=== PATIENT | male | born 1935 | race Caucasian/White ===

== ENCOUNTER 2016-06-27 16:47 | Inpatient (IN) | payer MEDICARE, OTHER ==
[~2016-06-27] VITALS: Ht 182.9 cm; Wt 60.0 kg
[~2016-06-27 16:47] MED LIST: DULO60CA6 PO; EZET10TA3 PO; IPRA12.93 INHALATION; LYRI100 PO; RANI150T9 PO
[2016-06-27] MEDS ORDERED: ONDANSETRON 4 MG INJ IV STA (17:19)
[2016-06-27] MEDS ORDERED: SOD CHLORIDE 0.9% 1,000 ML IV STA (17:19)
--- NOTE | 2016-06-27 17:22 | ERA ---
ER Documentation Chief Complaint Date/Time DATE: 06/27/16 TIME: 17:20 Chief Complaint NAUSEA SINCE YESTERDAY AND VOMITING TODAY, DARK COLORED. NO BLOOD,. HPI 80-year-old male with a history of coronary artery disease status post STEMI 2015 with PCI and stents to the right coronary, LAD and diagonal branch, peripheral neuropathy, Crohn's disease, hiatal hernia, recurrent aspiration, chronic back pain with most recent admission 09/15/2015 for C. difficile colitis and sepsis secondary to MRSA bacteremia presents to the ED via ambulance for evaluation of nausea and vomiting. Patient states that last night symptoms began with nausea and occasional vomiting which has been almost continuous for the last several hours and now is dark in appearance but there is no gross blood. Denies diarrhea or constipation. No hematochezia or melanotic stools. Denies abdominal pain or back pain. No chest pain or palpitations. Denies shortness of breath or cough. Denies ill contacts, spelled food exposure or recent travel. No fevers or chills. ROS All systems reviewed and are negative except as per history of present illness. Medications Home Meds Reported Medications Duloxetine Hcl* (Duloxetine Hcl*) 60 Mg Capsule.dr, 60 MG PO DAILY, #30 CAP 06/27/16 Melatonin (Melatonin) 5 Mg Tablet, 5 MG PO HS, TAB 06/27/16 Triamcinolone Acetonide (Triamcinolone Acetonide) 0.1% - 15 Gm Cream.gm., 1 APPLIC TOP DAILY, #1 TUB 06/27/16 Docusate Sodium* (Docusate Sodium*) 100 Mg Capsule, 100 MG PO Q12H, #60 CAP 06/27/16 Clopidogrel Bisulfate (Clopidogrel) 75 Mg Tablet, 75 MG PO DAILY, #30 TAB 06/27/16 Omeprazole* (Omeprazole*) 20 Mg Capsule.dr, 20 MG PO DAILY, #30 CAP 06/27/16 Zolpidem Tartrate* (Zolpidem Tartrate* ER) 12.5 Mg Tab.mphase, 12.5 MG PO HS Y for INSOMNIA, #30 TAB.SA 06/27/16 Trazodone Hcl* (Trazodone Hcl*) 50 Mg Tablet, 50 MG PO QHS, #30 TAB 06/27/16 Pregabalin* (Lyrica*) 50 Mg Capsule, 50 MG PO BID, CAP 06/27/16 Ezetimibe* (Zetia*) 10 Mg Tablet, 10 MG PO HS, TAB 09/03/15 Discontinued Reported Medications Ipratropium [place]* (Atrovent HFA*) 12.9 Gm Aer.w.adap, 2 PUFF INHALATION QID Y for WHEEZING AND SOB, #1 INHALER 09/03/15 Ranitidine Hcl* (Zantac*) 150 Mg Tablet, 150 MG PO HS, #30 TAB 09/03/15 Duloxetine Hcl* (Cymbalta*) 60 Mg Capsule.dr, 60 MG PO DAILY, CAP 07/11/15 Pregabalin* (Lyrica*) 100 Mg Capsule, 100 MG PO BID, CAP 07/11/15 Allergies Allergies: Coded Allergies: Penicillins (Verified Allergy, Unknown, 06/27/16) rash PMhx/Soc Reviewed in chart. As per HPI. History of Surgery: Yes (June 2015 W/ STENT X 3) Anesthesia Reaction: No Hx Neurological Disorder: No Hx Respiratory Disorders: Yes (asthma ) Hx Cardiac Disorders: No Hx Psychiatric Problems: No Hx Miscellaneous Medical Probl: Yes (June 2015 W/ STENT X 3, HIATAL HERNIA, ASPIRATION, LBP, PERIPH NEUROPATHY) Hx Alcohol Use: Yes (wine) Hx Substance Use: No Hx Tobacco Use: No Smoking Status: Unknown if ever smoked FmHx Reviewed in chart. Otherwise unknown. Not relevant to presenting complaint. Physical Exam Vitals Vital Signs Date Time Temp Pulse Resp B/P Pulse Ox O2 Delivery O2 Flow Rate FiO2 06/27/16 21:15 83 22 143/76 100 06/27/16 16:53 98.8 110 21 126/73 9 Physical Exam Const: Alert, chronically ill-appearing in moderate distress. Head: Atraumatic Eyes: Normal Conjunctiva. Pupils and reactive to light. Exotropia left eye ENT: Normal External Ears, Nose and Mouth. Neck: Full range of motion. Nontender. No JVD. Carotids 2+ bilaterally without bruits. Resp: Breath sounds diminished at the bases but otherwise clear to auscultation bilaterally. No rales rhonchi or wheezes. Cardio: Regular rate and rhythm, no murmurs Abd: Soft, mild, generalized tenderness. No rebound or guarding. Non distended. Normal bowel sounds Skin: No petechiae or rashes Back: No midline or flank tenderness Ext: No cyanosis, or edema Neur: Awake and alert. No focal deficit observed. Psych: Normal Mood and Affect Result Diagram: 06/28/16 0545 06/28/16 0545 Results 24 hrs Laboratory Tests Test 06/27/16 17:20 06/27/16 19:00 06/27/16 19:30 06/27/16 21:30 White Blood Count 11.310^3/ul Red Blood Count 4.7210^6/ul Hemoglobin 15.1g/dl Hematocrit 44.6% Mean Corpuscular Volume 94.5fl Mean Corpuscular Hemoglobin 32.0pg Mean Corpuscular Hemoglobin Concent 33.9g/dl Red Cell Distribution Width 14.2% Platelet Count 36942^3/UL Mean Platelet Volume 10.1fl Neutrophils % 84.2% Lymphocytes % 10.3% Monocytes % 4.6% Eosinophils % 0.3% Basophils % 0.2% Nucleated Red Blood Cells % 0.0/100WBC Neutrophils # 9.510^3/ul Lymphocytes # 1.210^3/ul Monocytes # 0.510^3/ul Eosinophils # 0.010^3/ul Basophils # 0.010^3/ul Nucleated Red Blood Cells # 0.010^3/ul Prothrombin Time 13.1Sec Prothrombin Time Ratio 1.0 INR International Normalized Ratio 0.99 Activated Partial Thromboplast Time 27.2Sec Sodium Level 143mmol/L Potassium Level 3.7mmol/L Chloride Level 99mmol/L Carbon Dioxide Level 29mmol/L Anion Gap 19 Blood Urea Nitrogen 40mg/dl Creatinine 0.91mg/dl Glucose Level 187mg/dl Lactic Acid Level 2.5mmol/L 1.8mmol/L 1.1mmol/L Calcium Level 9.2mg/dl Total Bilirubin 0.5mg/dl Direct Bilirubin 0.00mg/dl Indirect Bilirubin 0.5mg/dl Aspartate Amino Transf (AST/SGOT) 34IU/L Alanine Aminotransferase (ALT/SGPT) 38IU/L Alkaline Phosphatase 124IU/L Troponin I < 0.012ng/ml Total Protein 7.9g/dl Albumin 4.1g/dl Globulin 3.80g/dl Albumin/Globulin Ratio 1.07 Lipase 15U/L Urine Color LT. YELLOW Urine Clarity CLEAR Urine pH 6.0 Urine Specific [place] 1.015 Urine Ketones NEGATIVE Urine Nitrite NEGATIVE Urine Bilirubin NEGATIVE Urine Urobilinogen 0.2 E.U./dL Urine Leukocyte Esterase NEGATIVE Urine Microscopic RBC 2-5/HPF Urine Microscopic WBC 0-2/HPF Urine Hemoglobin TRACE Urine Glucose NEGATIVE% Urine Total Protein NEGATIVE Current Medications Medications (Trade) Dose Ordered Sig/Renita Route PRN Reason Start Time Stop Time Status Last Admin Dose Admin Sodium Chloride (NS) 1,000 ml @ 1,000 mls/hr Q1H STAT IV 06/27/16 17:19 06/27/16 18:18 DC 06/27/16 17:29 Ondansetron HCl (Zofran Inj) 4 mg ONCE STAT IV 06/27/16 17:19 06/27/16 17:20 DC 06/27/16 17:29 Pantoprazole (Protonix Iv) 40 mg ONCE ONCE IV 06/27/16 17:30 06/27/16 17:31 DC 06/27/16 17:29 IV Flush 10 ml 10 ml STK-MED ONCE .ROUTE 06/27/16 18:31 06/27/16 18:32 DC 06/27/16 18:47 Sodium Chloride (NS) 100 ml @ ud STK-MED ONCE .ROUTE 06/27/16 18:31 06/27/16 18:32 DC 06/27/16 18:47 Iohexol 150 ml 150 ml STK-MED ONCE .ROUTE 06/27/16 18:31 06/27/16 18:32 DC 06/27/16 18:47 Sodium Chloride (NS) 1,000 ml @ 70 mls/hr [id number] IV 06/27/16 22:06 06/29/16 04:17 EKG: TIME: 17: 27. Sinus tachycardia. Rate 104. First-degree AV block with CA interval 244 ms. Q waves in leads III and aVF. No acute ST segment elevation or depression. Interpretation is somewhat limited due to baseline artifact EP Interpretation: Abnormal EKG. IMAGING: PROCEDURE: XR Chest 1 View. CLINICAL INDICATION: Abnormal breath sounds, abdominal pain TECHNIQUE: AP view of the chest was obtained. COMPARISON: September 10, 2015 FINDINGS: The heart size is within normal limits. Calcified atherosclerosis is noted in the aorta. The lungs are hypoinflated. Diffuse interstitial prominence in both lungs appears chronic. Scattered atelectasis is noted in the bilateral lower lobes. Blunting of the right costophrenic angle is seen. The osseous structures are osteopenic, but appear grossly intact. Old, healed posterior right 8th rib fracture is noted. IMPRESSION: Calcified atherosclerosis in the aorta. Hypoinflated lungs with scattered atelectasis in the bilateral lower lobes. Stable, chronic mild interstitial prominence in both lungs. Blunting of the right costophrenic angle that could reflect scarring or small pleural effusion. RPTAT: AA .Jluis Ybarra MD, Date Time Electronically viewed and signed by .Jluis Ybarra MD, MD on 06/27/2016 18:14 .P/ PROCEDURE: CT abdomen and pelvis without contrast. CLINICAL INDICATION: Abdominal pain. TECHNIQUE: CT scan of the abdomen and pelvis without contrast was performed on a multi-slice CT scanner utilizing axial imaging from the lung bases through the pubis symphysis. The patient was scanned without intravenous contrast. Sagittal and coronal reformatted images were made. The CTDIvol is 5.87 mGy and the DLP is 334.31 mGycm. One of the following 3 dose reduction techniques were used during this CT examination: automated exposure control; adjustment of the mA and /or kV according to patient size; or use of iterative reconstruciton technique. COMPARISON: Chest x-ray 06/27/[address] abdomen pelvis 09/03/2015 FINDINGS: The lung bases are remarkable for bibasilar subsegmental discoid atelectasis. Mild cardiomegaly is present without pericardial or pleural effusions. Vascular calcifications are present of the coronary arteries and the thoracic aorta. Mild hiatal hernia is present. The visualized liver is of normal size and attenuation. Too small to characterize low attenuation 3 mm cysts are present or cystic lesions in the right and left lobes of the liver. The visualized spleen, fatty pancreas, and gallbladder are normal. The bilateral adrenal glands are normal. The bilateral kidneys demonstrate bilateral renal cortical cysts without evidence for hydroureteronephrosis or nephroureterolithiasis. A 7 mm peripheral calcified cyst is noted along the right lateral mid pole of the kidney. The visualized aorta demonstrates vascular calcifications without aneurysmal dilatation. The visualized bowel demonstrates an abundance of stool and correlate with constipation. No evidence for bowel obstruction, diverticulosis, or diverticulitis is noted. In the appendix is not visualized although no evidence for acute appendicitis is present. No pelvic mass, lymphadenopathy, or free fluid is seen. Mild prostatic enlargement is noted. Bilateral fatty inguinal hernias are noted the right measures 3.2 cm in transverse dimensions and the left measures 1.8 cm. There is no evidence of free air. The surrounding osseous structures are remarkable for the appearance of a sclerotic lesion measuring 1.7 cm in the left inferior pubic ramus. Severe degenerative changes are present of the right femoral acetabular joint and mild degenerative changes of the left. Ankylosis is present of the anterior portion of the of the sacroiliac joints with osteophytic bridging. Degenerative spondylosis is present of the imaged spine. Healed left posterior lateral rib fractures. IMPRESSION: 1. Abundance of stool and correlate with constipation. 2. Mild cardiomegaly and atherosclerotic vascular disease 3. Small hiatal hernia unchanged from prior para 4. Bilateral renal cortical cysts and 7 mm peripheral calcified cyst along the right lateral mid pole of the kidney. 5. Mild prostatic enlargement and decrease in the previously described rectal wall thickening and inflammatory changes. 6. Bilateral fatty inguinal hernias 7. Sclerotic left inferior pubic ramus 1.7 cm lesion and healed left rib fractures stable from prior study. RPTAT: HDC .Renetta Bell MD, MD Date Time Electronically viewed and signed by .Renetta Bell MD, on 06/27/2016 19: 47 .C/ Procedures/MDM DOCUMENTS REVIEWED: ED nurse, prior ED, prior records including a August 2015 admission for similar symptoms, history and physical, progress notes and discharge summary. ED COURSE: Time: 21: 00 IV saline lock. Normal saline 1 L. Zofran 4 mg, Protonix 40 mg IV. REEXAMINATION/REEVALUATION: Time: 21:00. Doing well. Vital signs stable. Afebrile. Abdomen is soft nontender. No further vomiting. Patient resents with nausea and vomiting likely secondary to gastritis/GERD. Criteria for systemic inflammatory response syndrome include tachycardia and tachypnea. Has no evidence of infection or sepsis. No urinary tract infection or pneumonia. Lactic acidosis likely secondary to dehydration. Initial lactate was mildly elevated 2.5 likely secondary to dehydration and decreased to 1.[address] scan reveals diffuse constipation, a small hiatal hernia and bilateral inguinal hernias without evidence of obstruction. No signs of an acute intra-abdominal process occluded by limited to mesenteric ischemia, appendicitis, diverticulitis or obstructive uropathy. Abdominal exam is benign without significant tenderness, rebound, guarding or signs of peritonitis. Patient responded to intravenous hydration, antiemetics and proton pump inhibitors. History of coronary artery disease status post PCI but no chest pain, ischemic EKG changes, elevated troponin or other signs of acute coronary syndrome. He will be admitted to med/surg for further evaluation and management. MEDICAL DECISION MAKIN-year-old male with a history of coronary artery disease status post STEMI 06/2015 with PCI and stents to the right coronary, LAD and diagonal branch, peripheral neuropathy, Crohn's disease, hiatal hernia, recurrent aspiration, chronic back pain with most recent admission 09/15/2015 for C. difficile colitis and sepsis secondary to MRSA bacteremia presents to the ED via ambulance for evaluation of nausea and vomiting. Counseled patient regarding diagnosis, diagnostic results and plan for admission. CALLS/CONSULTS: Time[]Dr. [], Recommends []. PATIENT CARE TRANSITIONED: Time: []Dr. []. Departure Diagnosis: Primary Impression: Acute vomiting Additional Impressions: Acute gastritis Qualified Code: K29.00 - Acute gastritis, presence of bleeding unspecified, unspecified gastritis type Constipation Qualified Code: K59.00 - Constipation, unspecified constipation type History of coronary artery disease History of heart artery stent Systemic inflammatory response syndrome Hiatal hernia Bilateral inguinal hernia Qualified Code: K40.21 - Bilateral recurrent inguinal hernia without obstruction or gangrene Condition: Serious GRACIELA BRADLEY MD June 27, 2016 17:22
[2016-06-27 17:30] LABS: ADD SCAN DIFF NO
[2016-06-27] MEDS ORDERED: PANTOPRAZOLE 40 MG INJ IV ONE (17:30)
[2016-06-27 17:47] LABS: INR 0.99; PROTIME 13.1 Sec (12.2-14.2)
[2016-06-27 17:48] LABS: ALBUMIN 4.1 g/dl (3.3-4.9); CHLORIDE 99 mmol/L (97-110); PARTIAL THROMBOPLASTIN TIME 27.2 Sec (25.0-35.0); POTASSIUM 3.7 mmol/L (3.5-5.1); SODIUM 143 mmol/L (135-144)
[2016-06-27 17:50] LABS: CREATININE 0.91 mg/dl (0.61-1.24)
[2016-06-27 17:51] LABS: ALANINE AMINOTRANSFERASE 38 IU/L (13-69); ALBUMIN/GLOBULIN RATIO 1.07; ALKALINE PHOSPHATASE 124 IU/L (42-121); ANION GAP 19 (8-16); ASPARTATE AMINO TRANSFERASE 34 IU/L (15-46); BILIRUBIN,INDIRECT 0.5 mg/dl (0-1.1); BILIRUBIN,TOTAL 0.5 mg/dl (0.2-1.3); BLOOD UREA NITROGEN 40 mg/dl (7-20); CALCIUM 9.2 mg/dl (8.4-10.2); CARBON DIOXIDE 29 mmol/L (21-31); GLUCOSE 187 mg/dl (70-220); TOTAL PROTEIN 7.9 g/dl (6.1-8.1)
[2016-06-27 18:04] LABS: TROPONIN-I < 0.012 ng/ml (0.00-0.12)
[2016-06-27] MEDS ORDERED: PREG50CA PO (18:13)
--- NOTE | 2016-06-27 18:14 | RADRPT ---
PROCEDURE: XR Chest 1 View. CLINICAL INDICATION: Abnormal breath sounds, abdominal pain TECHNIQUE: AP view of the chest was obtained. COMPARISON: September 10, 2015 FINDINGS: The heart size is within normal limits. Calcified atherosclerosis is noted in the aorta. The lungs are hypoinflated. Diffuse interstitial prominence in both lungs appears chronic. Scattered atelect asis is noted in the bilateral lower lobes. Blunting of the right costophrenic angle is seen. The o sseous structures are osteopenic, but appear grossly intact. Old, healed posterior right 8th rib fra cture is noted. IMPRESSION: Calcified atherosclerosis in the aorta. Hypoinflated lungs with scattered atelectasis in the bilateral lower lobes. Stable, chronic mild interstitial prominence in both lungs. Blunting of the right costophrenic angle that could reflect scarring or small pleural effusion. RPTAT: AA .Jluis Ybarra MD, Date Time Electronically viewed and signed by .Jluis Ybarra MD, on 06/27/2016 18:14 .P/
[2016-06-27 18:29] LABS: BASOPHILS % 0.2 % (0.0-2.0); EOSINOPHILS % 0.3 % (0.0-7.0); HEMATOCRIT 44.6 % (42.0-52.0); HEMOGLOBIN 15.1 g/dl (14.0-18.0); LYMPHOCYTES # 1.2 10^3/ul (0.8-2.9); LYMPHOCYTES % 10.3 % (15.0-51.0); MEAN CORPUSCULAR HGB CONC 33.9 g/dl (32.0-37.0); MEAN CORPUSCULAR VOLUME 94.5 fl (82.0-101.0); MEAN PLATELET VOLUME 10.1 fl (7.4-10.4); MONOCYTE # 0.5 10^3/ul (0.3-0.9); MONOCYTES % 4.6 % (0.0-11.0); NEUTROPHIL # 9.5 10^3/ul (1.6-7.5); NEUTROPHILS % 84.2 % (39.0-77.0); PLATELET COUNT 216 10^3/UL (140-415); RED BLOOD COUNT 4.72 10^6/ul (4.70-6.10); RED CELL DISTRIBUTION WIDTH 14.2 % (11.5-14.5); WHITE BLOOD COUNT 11.3 10^3/ul (4.8-10.8)
[2016-06-27] MEDS ORDERED: SOD CHLORIDE 0.9% 100 ML ONE (18:31)
[2016-06-27] MEDS ORDERED: IOHEXOL 300MG/ML 150 ML BTL ONE (18:31)
[2016-06-27] MEDS ORDERED: TRAZ50TA18 PO (18:40)
[2016-06-27] MEDS ORDERED: ZOLP12.54 PO (18:47)
[2016-06-27] MEDS ORDERED: CLOP75TA27 PO (18:48)
[2016-06-27] MEDS ORDERED: OMEP20CA16 PO (18:48)
[2016-06-27] MEDS ORDERED: DOCU-159 PO (18:49)
[2016-06-27] MEDS ORDERED: KENC1 TOP (18:50)
[2016-06-27] MEDS ORDERED: MELA5TAB4 PO (18:51)
[2016-06-27] MEDS ORDERED: DULO60CA59 PO (18:52)
[2016-06-27 19:39] LABS: ADD UMIC YES; URINE BILIRUBIN (Dip) NEGATIVE (NEGATIVE); URINE BLOOD (Dip) TRACE (NEGATIVE); URINE COLOR LT. YELLOW (YELLOW); URINE GLUCOSE (Dip) NEGATIVE (NEGATIVE); URINE KETONES (Dip) NEGATIVE (NEGATIVE); URINE LEUKOCYTE ESTERASE (Dip) NEGATIVE (NEGATIVE); URINE NITRITE (Dip) NEGATIVE (NEGATIVE); URINE TOTAL PROTEIN (Dip) NEGATIVE (NEGATIVE); URINE UROBILINOGEN (Dip) 0.2 E.U./dL (0.1-1.0)
--- NOTE | 2016-06-27 19:47 | RADRPT ---
PROCEDURE: CT abdomen and pelvis without contrast. CLINICAL INDICATION: Abdominal pain. TECHNIQUE: CT scan of the abdomen and pelvis without contrast was performed on a multi-slice CT [facility] utilizing axial imaging from the lung bases through the pubis symphysis. The patient was scan yolanda without intravenous contrast. Sagittal and coronal reformatted images were made. The CTDIvol i s 5.87 mGy and the DLP is 334.31 mGycm. One of the following 3 dose reduction techniques were used during this CT examination: automated exp osure control; adjustment of the mA and /or kV according to patient size; or use of iterative recons truciton technique. COMPARISON: Chest x-ray 06/27/[address] abdomen pelvis 09/03/2015 FINDINGS: The lung bases are remarkable for bibasilar subsegmental discoid atelectasis. Mild cardiomegaly is present without pericardial or pleural effusions. Vascular calcifications are present of the hammond ry arteries and the thoracic aorta. Mild hiatal hernia is present. The visualized liver is of normal size and attenuation. Too small to characterize low attenuation 3 mm cysts are present or cystic lesions in the right and left lobes of the liver. The visualized sp jesse, fatty pancreas, and gallbladder are normal. The bilateral adrenal glands are normal. The paola ateral kidneys demonstrate bilateral renal cortical cysts without evidence for hydroureteronephrosis or nephroureterolithiasis. A 7 mm peripheral calcified cyst is noted along the right lateral mid p ole of the kidney. The visualized aorta demonstrates vascular calcifications without aneurysmal dila tation. The visualized bowel demonstrates an abundance of stool and correlate with constipation. No evidenc e for bowel obstruction, diverticulosis, or diverticulitis is noted. In the appendix is not visuali zed although no evidence for acute appendicitis is present. No pelvic mass, lymphadenopathy, or free fluid is seen. Mild prostatic enlargement is noted. Bilat eral fatty inguinal hernias are noted the right measures 3.2 cm in transverse dimensions and the lef t measures 1.8 cm. There is no evidence of free air. The surrounding osseous structures are remarkable for the appearance of a sclerotic lesion measuring 1.7 cm in the left inferior pubic ramus. Severe degenerative changes are present of the right femo ral acetabular joint and mild degenerative changes of the left. Ankylosis is present of the anterio r portion of the of the sacroiliac joints with osteophytic bridging. Degenerative spondylosis is pr esent of the imaged spine. Healed left posterior lateral rib fractures. IMPRESSION: 1. Abundance of stool and correlate with constipation. 2. Mild cardiomegaly and atherosclerotic vascular disease 3. Small hiatal hernia unchanged from prior para 4. Bilateral renal cortical cysts and 7 mm peripheral calcified cyst along the right lateral mid po le of the kidney. 5. Mild prostatic enlargement and decrease in the previously described rectal wall thickening and i nflammatory changes. 6. Bilateral fatty inguinal hernias 7. Sclerotic left inferior pubic ramus 1.7 cm lesion and healed left rib fractures stable from prio r study. RPTAT: HDC .Renetta Bell MD, MD Date Time Electronically viewed and signed by .Renetta Bell MD, on 06/27/2016 19:47 .C/
[2016-06-27] MEDS ORDERED: ONDANSETRON 4 MG INJ IV PRN (22:30)
[2016-06-27] MEDS ORDERED: PANTOPRAZOLE 40 MG INJ IV SCH (22:30)
[2016-06-27] MEDS ORDERED: NACL 0.9% 3 ML SYG IV SCH (22:30)
[2016-06-27] MEDS: SOD CHLORIDE 0.9% 1,000 ML IV SCH (22:34)
[2016-06-27 23:30] VITALS: TEMP 98.8
[2016-06-28 00:43] VITALS: BP 129/73; RESP 18
[2016-06-28 01:36] VITALS: Ht 182.9 cm; Wt 60.0 kg
--- NOTE | 2016-06-28 04:12 | HP ---
Date/Time of Note Date/Time of Note DATE: 06/28/16 TIME: 03:55 Assessment/Plan VTE Prophylaxis VTE Prophylaxis Intervention: SCD's Lines/Catheters IV Catheter Type (from [facility]): Peripheral IV Assessment/Plan Chief Complaint/Hosp Course This is a 80-year-old male being admitted to the [facility] floor for: #1 Dehydration: Likely secondary to vomiting. Initially patient had a lactic acid of 2.5 which subsequently improved to 1.1 with IV fluid hydration. will continue IV fluid hydration. #2 Emesis: Patient reports a dark brown vomitus which is heparin for. He does state that times he takes Tums for reflux. We will have GI evaluate the patient for possible EGD. At the current time will keep patient n.p.o. and hold current oral medications especially Plavix. This could be related to patient's hiatal hernia which is seen on CAT scan. There was no other acute finding on the CAT scan that would at this time appear to be contributing to this. Once patient can resume p.o. meds will establish bowel regimen his CT did show constipation. #3 peripheral neuropathy: We will resume Lyrica once patient is able to take p.o. #4 CAD: We will resume Plavix and Zetia once GI bleed is ruled out and patient is able to take oral meds #5 GERD: Continue acid amanda #6 DVT and GI prophylaxis: SCDs, Protonix IV twice daily Patient's CODE STATUS is a DNR. However patient would like to see GI and discuss whether patient would need possibly endoscopy/colonoscopy or not. Problems: HPI/ROS Admit Date/Time Admit Date/Time June 27, 2016 at 22:10 Hx of Present Illness 80-year-old male with a history of coronary artery disease status post STEMI 2015 with PCI and stents to the right coronary, LAD and diagonal branch, peripheral neuropathy, Crohn's disease, hiatal hernia, recurrent aspiration, chronic back pain with most recent admission 09/15/2015 for C. difficile colitis and sepsis secondary to MRSA bacteremia presents to the ED via ambulance for evaluation of nausea and vomiting. Patient states that last night symptoms began with nausea and occasional vomiting which has been almost continuous for the last several hours and now is dark in appearance but there is no gross blood. Denies diarrhea or constipation. No hematochezia or melanotic stools. Denies abdominal pain or back pain. No chest pain or palpitations. Denies shortness of breath or cough. Denies ill contacts, spelled food exposure or recent travel. No fevers or chills. Allergies: Penicillin Medications: See MAR ROS Const: 3 pound weight loss over the past month unintentional Eyes : No pain discharge or redness or change in visual acuity ENT: No pain, sore throat, congestion, congestion, dysphagia or discharge Respiratory: No shortness of breath, cough, sputum, wheezing, or pleuritic pain Cardiovascular: No chest pain, palpitation, PND, or edema GI : Negative except for what is mentioned in the HPI Genitourinary: No dysuria, hematuria, flank pain , discharge or CVA tenderness Musculoskeletal: No joint pain, back pain, neck pain, restricted range of motion in neck or joints Skin: No rash, bruising or hives Neuro: Chronic weakness secondary to peripheral neuropathy Endocrine: No polyuria, polydipsia, temperature intolerance Psych: No hallucination, depression, anxiety or suicidal ideation PMH/Family/Social Past Medical History [facility] 06/2015 with stents, peripheral neuropathy, Crohn's disease, hiatal hernia , recurrent aspiration, chronic back pain, history of C. difficile infection and MRSA bacteremia Past Surgical History Abdominal surgery, patient is unclear as to what exactly he had done Family History Significant Family History: no pertinent family hx Social History Alcohol Use: none Smoking Status: Former smoker Drug Use: none Exam/Review of Systems Vital Signs Vitals Vital Signs Date Time Temp Pulse Resp B/P Pulse Ox O2 Delivery O2 Flow Rate FiO2 06/28/16 00:43 97.7 73 18 129/73 95 06/27/16 23:30 Room Air 2.0 Nasal Cannula Exam Exam General: This is a pleasant frail gentleman The patient is alert oriented -3 lying comfortably in bed. HEENT: Atraumatic, normocephalic. The pupils are equal, round and reactive. Extraocular motor are intact, left eye congenital abnormality Neck: Supple with full range of motion. No rigidity or meningismus Chest: Nontender Lungs: Clear to auscultation bilaterally no crackles rales or wheezing Heart: Normal S1-S2, Regular rhythm and rate Abdomen: Soft , nontender, nondistended , bowel sounds are present. No guarding no rebound tenderness , No masses or organomegaly. No costovertebral temporal angle mass Extremities: Normal to inspection, no edema no cyanosis Neurologic: Normal mental status, gait disturbance secondary likely to peripheral neuropathy Additional Comments CT of the abdomen and pelvis 1. Abundance of stool and correlate with constipation. 2. Mild cardiomegaly and atherosclerotic vascular disease 3. Small hiatal hernia unchanged from prior para 4. Bilateral renal cortical cysts and 7 mm peripheral calcified cyst along the right lateral mid pole of the kidney. 5. Mild prostatic enlargement and decrease in the previously described rectal wall thickening and inflammatory changes. 6. Bilateral fatty inguinal hernias 7. Sclerotic left inferior pubic ramus 1.7 cm lesion and healed left rib fractures stable from prior study. EKG: Sinus tachycardia. Rate 104. First-degree AV block with RI interval 244 ms. Q waves in leads III and aVF. No acute ST segment elevation or depression. ifact EP Interpretation: Abnormal EKG. Chest x-ray IMPRESSION: Calcified atherosclerosis in the aorta. Hypoinflated lungs with scattered atelectasis in the bilateral lower lobes. Stable, chronic mild interstitial prominence in both lungs. Blunting of the right costophrenic angle that could reflect scarring or small pleural effusion. Labs Result Diagram: 06/27/16 1720 06/27/16 1720 Medications Medications Current Medications Sodium Chloride (NS) 1,000 ml @ 70 mls/hr [id number] IV Last administered on t 22:34; Admin Dose 70 MLS/HR; Start 06/27/16 at 22:06 Ondansetron HCl (Zofran Inj) 4 mg Q6H PRN IV NAUSEA AND/OR VOMITING; Start 06/27 at 22:30 Pantoprazole (Protonix Iv) 40 mg BID@06,18 IV ; Start 06/28/16 at 06:00 JULIAN BARON June 28, 2016 04:06
[2016-06-28 05:59] LABS: ADD SCAN DIFF NO
[2016-06-28] MEDS ORDERED: PANTOPRAZOLE 40 MG INJ IV SCH (06:00)
[2016-06-28 06:08] LABS: BASOPHILS % 0.3 % (0.0-2.0); EOSINOPHILS # 0.1 10^3/ul (0.0-0.5); EOSINOPHILS % 1.3 % (0.0-7.0); HEMATOCRIT 37.7 % (42.0-52.0); HEMOGLOBIN 12.6 g/dl (14.0-18.0); LYMPHOCYTES # 1.8 10^3/ul (0.8-2.9); MEAN CORPUSCULAR HEMOGLOBIN 31.6 pg (29.0-33.0); MEAN CORPUSCULAR HGB CONC 33.4 g/dl (32.0-37.0); MEAN CORPUSCULAR VOLUME 94.5 fl (82.0-101.0); MEAN PLATELET VOLUME 9.8 fl (7.4-10.4); MONOCYTE # 0.6 10^3/ul (0.3-0.9); MONOCYTES % 7.9 % (0.0-11.0); NEUTROPHIL # 5.4 10^3/ul (1.6-7.5); NEUTROPHILS % 68.2 % (39.0-77.0); PLATELET COUNT 194 10^3/UL (140-415); RED BLOOD COUNT 3.99 10^6/ul (4.70-6.10); RED CELL DISTRIBUTION WIDTH 14.2 % (11.5-14.5)
[2016-06-28 06:28] LABS: POTASSIUM 3.7 mmol/L (3.5-5.1)
[2016-06-28 06:29] LABS: CREATININE 0.83 mg/dl (0.61-1.24)
[2016-06-28 06:30] LABS: ALBUMIN/GLOBULIN RATIO 0.9; BILIRUBIN,INDIRECT 0.5 mg/dl (0-1.1); BILIRUBIN,TOTAL 0.5 mg/dl (0.2-1.3); TOTAL PROTEIN 6.3 g/dl (6.1-8.1)
[2016-06-28 06:31] LABS: CALCIUM 8.4 mg/dl (8.4-10.2)
[2016-06-28 07:45] VITALS: BP 135/63; RESP 16
[2016-06-28] MEDS: TRIAMCINOLONE ACET 0.1% 15 GM CR TOP SCH (08:11)
[2016-06-28] MEDS ORDERED: ZOLPIDEM 5 MG TAB PO PRN (11:00)
--- NOTE | 2016-06-28 11:11 | PN ---
DATE: 06/28/2016 SUBJECTIVE: Mr. Cortes was admitted a few hours ago with decreased p.o. intake, nausea and vomitin g with mild lactic acidosis. He is improved following gentle hydration. Currently denies any short ness of breath, fever or chills. PHYSICAL EXAMINATION: VITAL SIGNS: Temperature 98, pulse 62, blood pressure 135/63, O2 saturation 96% on 2 L nasal cannul a. NECK: Supple. No JVD or lymphadenopathy. CARDIAC: S1, S2, no added sounds or murmurs. CHEST: Diminished air entry bilaterally. ABDOMEN: Soft, nontender. No guarding or rebound. EXTREMITIES: No cyanosis, clubbing, or edema. NEUROLOGIC: Generalized weakness. LABORATORY DATA: White count initially 11.3. CT abdomen showed evidence of constipation, otherwise no significant abnormalities. Chest x-ray was low lung volumes with atelectasis. Urinalysis initi ally unremarkable. IMPRESSION AND PLAN: 1. Dehydration. 2. Possible gastritis. 3. Constipation. 4. Possible dysphagia given patient's history and examination RECOMMENDATIONS: 1. Continue hydration. 2. Continue proton pump inhibitor. 3. Antiemetics. 4. Speech therapy evaluation. Dictated By: BINH AGUSTIN/SONIA Conf#: [id number] DID#: [id number]
[2016-06-28] MEDS: PREGABALIN 25 MG CAP PO SCH ×2 (11:30→20:46)
[2016-06-28] MEDS: DOCUSATE SODIUM 100 MG CAP PO SCH ×2 (11:30→20:45)
[2016-06-28] MEDS: DULOXETINE 30 MG CAP DR PO SCH (11:31)
[2016-06-28] MEDS: CLOPIDOGREL 75 MG TAB PO SCH (11:31)
[2016-06-28] MEDS: PANTOPRAZOLE (EC) 40 MG TAB PO SCH (11:31)
[2016-06-28] MEDS: SOD CHLORIDE 0.9% 1,000 ML IV SCH ×2 (12:24→12:54)
--- NOTE | 2016-06-28 16:50 | CONS ---
Date/Time of Note Date/Time of Note DATE: 06/28/16 TIME: 16:28 Assessment/Plan Assessment/Plan Additional Assessment/Plan Assessment * Nausea/vomiting GERD vs gastritis * Anemia Acute vs chronic * CAD * Peripheral neuropathy Plan * EGD risks and benefits explained to the patient and agreed with the planned procedure * continue present management Consultation Date/Type/Reason Admit Date/Time June 27, 2016 at 22:10 Date of Consultation: June 28, 2016 Type of Consultation: Gastroenterology Reason for Consultation brown vomitus and dysphagia Referring Provider: JULIAN BARON Hx of Present Illness 80 year old male with past medical history of cad,s/p stemi 06/2015with 3 stents placed,peripheral neuropathy ,recurrent aspirations,crohn disease and hiatal hernia was brought to emergency room because of nausea and vomiting of brownish liquid x4 but no hematemesis,melena,hematochezia,abdominal pain and fever..Denies chest pain nor back pain nor shortness of breath. Emergency room course hemoglobin is 15 now 12,elevated wbc 11.3. Presently ,no episode of vomiting ,denies any abdominal pain,hematemesis,nor hematochezia. Constitutional: improved, no complaints Eyes: no complaints ENT: no complaints Respiratory: no complaints Cardiovascular: no complaints Gastrointestinal: no complaints Genitourinary: no complaints Musculoskeletal: no complaints Skin: no complaints Neurologic: no complaints Endocrine: no complaints Lymphatic: no complaints Psychological: nl mood/affect, no complaints Immunologic: no complaints Past Medical History Medical History: congestive heart failure, coronary artery disease, hypertension Past Surgical History Past Surgical Hx: angioplasty Family History Significant Family History: no pertinent family hx Social History Alcohol Use: none Smoking Status: Former smoker Drug Use: none Exam/Review of Systems Vital Signs Vitals Vital Signs Date Time Temp Pulse Resp B/P Pulse Ox O2 Delivery O2 Flow Rate FiO2 06/28/16 07:45 97.4 62 16 135/63 98 06/27/16 23:30 Room Air 2.0 Nasal Cannula Intake and Output 06/27/16 06/27/16 06/28/16 15:00 23:00 07:00 Intake Total 740 ml Balance 740 ml Exam Constitutional: alert, oriented, well developed Head: atraumatic, normocephalic Eyes: PERRL, nl conjunctiva, nl sclera ENMT: nl nasal mucosa & septum Neck: non-tender, supple Respiratory: clear to auscultation, normal air movement Cardiovascular: nl pulses, regular rate and rhythm Gastrointestinal: non-tender, soft Musculoskeletal: nl extremities to inspection, nl gait and stance Extremities: normal pulses Neurological: nl mental status, nl speech, nl strength Skin: nl turgor, No rash or lesions Lymph: nl lymph nodes Results Result Diagram: 06/28/16 0545 06/28/16 0545 Results 24 hrs Laboratory Tests Test 06/27/16 17:20 06/27/16 19:00 06/27/16 19:30 06/27/16 21:30 White Blood Count 11.3 H Red Blood Count 4.72 # Hemoglobin 15.1 # Hematocrit 44.6 # Mean Corpuscular Volume 94.5 Mean Corpuscular Hemoglobin 32.0 Mean Corpuscular Hemoglobin Concent 33.9 Red Cell Distribution Width 14.2 # Platelet Count 216 Mean Platelet Volume 10.1 # Neutrophils % 84.2 H Lymphocytes % 10.3 L Monocytes % 4.6 Eosinophils % 0.3 Basophils % 0.2 Nucleated Red Blood Cells % 0.0 Neutrophils # 9.5 H Lymphocytes # 1.2 Monocytes # 0.5 Eosinophils # 0.0 Basophils # 0.0 Nucleated Red Blood Cells # 0.0 Prothrombin Time 13.1 Prothrombin Time Ratio 1.0 INR International Normalized Ratio 0.99 Activated Partial Thromboplast Time 27.2 Sodium Level 143 Potassium Level 3.7 Chloride Level 99 Carbon Dioxide Level 29 Anion Gap 19 H Blood Urea Nitrogen 40 H Creatinine 0.91 Glucose Level 187 Lactic Acid Level 2.5 H 1.8 1.1 Calcium Level 9.2 Total Bilirubin 0.5 Direct Bilirubin 0.00 Indirect Bilirubin 0.5 Aspartate Amino Transf (AST/SGOT) 34 Alanine Aminotransferase (ALT/SGPT) 38 Alkaline Phosphatase 124 H Troponin I < 0.012 Total Protein 7.9 Albumin 4.1 Globulin 3.80 H Albumin/Globulin Ratio 1.07 Lipase 15 L Urine Color LT. YELLOW Urine Clarity CLEAR Urine pH 6.0 Urine Specific [place] 1.015 Urine Ketones NEGATIVE Urine Nitrite NEGATIVE Urine Bilirubin NEGATIVE Urine Urobilinogen 0.2 E.U./dL Urine Leukocyte Esterase NEGATIVE Urine Microscopic RBC 2-5 Urine Microscopic WBC 0-2 Urine Hemoglobin TRACE Urine Glucose NEGATIVE Urine Total Protein NEGATIVE Test 06/28/16 05:45 White Blood Count 8.0 # Red Blood Count 3.99 L Hemoglobin 12.6 L Hematocrit 37.7 L Mean Corpuscular Volume 94.5 Mean Corpuscular Hemoglobin 31.6 Mean Corpuscular Hemoglobin Concent 33.4 Red Cell Distribution Width 14.2 Platelet Count 194 Mean Platelet Volume 9.8 Neutrophils % 68.2 Lymphocytes % 22.0 Monocytes % 7.9 Eosinophils % 1.3 Basophils % 0.3 Nucleated Red Blood Cells % 0.0 Neutrophils # 5.4 Lymphocytes # 1.8 Monocytes # 0.6 Eosinophils # 0.1 Basophils # 0.0 Nucleated Red Blood Cells # 0.0 Sodium Level 142 Potassium Level 3.7 Chloride Level 104 Carbon Dioxide Level 29 Anion Gap 13 Blood Urea Nitrogen 28 #H Creatinine 0.83 Glucose Level 89 # Calcium Level 8.4 Total Bilirubin 0.5 Direct Bilirubin 0.00 Indirect Bilirubin 0.5 Aspartate Amino Transf (AST/SGOT) 29 Alanine Aminotransferase (ALT/SGPT) 33 Alkaline Phosphatase 84 Total Protein 6.3 # Albumin 3.0 #L Globulin 3.30 H Albumin/Globulin Ratio 0.90 Medications Medications Current Medications Sodium Chloride (NS) 1,000 ml @ 70 mls/hr [id number] IV Last administered on 12:54; Admin Dose 70 MLS/HR; Start 06/27/16 at 22:06 Ondansetron HCl (Zofran Inj) 4 mg Q6H PRN IV NAUSEA AND/OR VOMITING; Start 06/27 at 22:30 Triamcinolone Acetonide (Kenalog 0.1% Cr) 1 applic DAILY TOP Last administered on 06/28/16 08:11; Admin Dose 1 APPLIC; Start 06/28/16 at 09:00 Clopidogrel Bisulfate (plaVIX) 75 mg DAILY PO Last administered on 06/28/16 11: 31; Admin Dose 75 MG; Start 06/28/16 at 11:00 Docusate Sodium (Colace) 100 mg Q12 PO Last administered on 06/28/16 11:30; Admin Dose 100 MG; Start 06/28/16 at 11:00 Duloxetine HCl (Cymbalta) 60 mg DAILY PO Last administered on 06/28/16 11:31; Admin Dose 60 MG; Start 06/28/16 at 11:00 EZETIMIBE (Zetia) 10 mg HS PO ; Start 06/28/16 at 21:00 Pregabalin (Lyrica) 50 mg BID PO Last administered on 06/28/16 11:30; Admin Dose 50 MG; Start 06/28/16 at 11:00 Trazodone HCl (Desyrel) 50 mg QHS PO ; Start 06/28/16 at 21:00 Pantoprazole (Protonix Tab) 40 mg DAILY@06 PO Last administered on 06/28/16 11: 31; Admin Dose 40 MG; Start 06/28/16 at 11:00 Zolpidem Tartrate (Ambien) 5 mg HS PRN PO INSOMNIA; Start 06/28/16 at 11:00 VELIA CORADO MD June 28, 2016 16:39
[2016-06-28 19:58] VITALS: BP 155/87; RESP 18
[2016-06-28] MEDS: traZODone 50 MG TAB PO SCH (20:46)
[2016-06-28] MEDS: EZETIMIBE 10 MG TAB PO SCH (20:46)
[2016-06-28] MEDS ORDERED: NON-FORMULARY/PATIENT OWN MED (Melatonin 5 MG) PO SCH (21:00)
[2016-06-28 22:00] VITALS: BP 135/76; PULSE 68; RESP 18
[2016-06-29] VITALS (21 sets, daily range): BP systolic 110–185; BP diastolic 60–94; PULSE 64–90; RESP 18–20
[2016-06-29] MEDS: SOD CHLORIDE 0.9% 1,000 ML IV SCH (04:17)
[2016-06-29] MEDS: PANTOPRAZOLE (EC) 40 MG TAB PO SCH ×2 (06:00→21:51)
[2016-06-29 06:23] LABS: ADD SCAN DIFF NO
[2016-06-29 06:34] LABS: BASOPHILS % 0.6 % (0.0-2.0); EOSINOPHILS # 0.2 10^3/ul (0.0-0.5); EOSINOPHILS % 3.4 % (0.0-7.0); HEMATOCRIT 38.1 % (42.0-52.0); HEMOGLOBIN 12.8 g/dl (14.0-18.0); LYMPHOCYTES # 1.3 10^3/ul (0.8-2.9); LYMPHOCYTES % 24.4 % (15.0-51.0); MEAN CORPUSCULAR HEMOGLOBIN 31.5 pg (29.0-33.0); MEAN CORPUSCULAR HGB CONC 33.6 g/dl (32.0-37.0); MEAN CORPUSCULAR VOLUME 93.8 fl (82.0-101.0); MEAN PLATELET VOLUME 9.9 fl (7.4-10.4); MONOCYTE # 0.5 10^3/ul (0.3-0.9); NEUTROPHIL # 3.3 10^3/ul (1.6-7.5); NEUTROPHILS % 62.4 % (39.0-77.0); PLATELET COUNT 214 10^3/UL (140-415); RED BLOOD COUNT 4.06 10^6/ul (4.70-6.10); RED CELL DISTRIBUTION WIDTH 13.9 % (11.5-14.5); WHITE BLOOD COUNT 5.3 10^3/ul (4.8-10.8)
[2016-06-29] MEDS ORDERED: PROPOFOL 200 MG INJ ONE (07:00)
[2016-06-29 07:44] LABS: CALCIUM 8.3 mg/dl (8.4-10.2); CREATININE 0.78 mg/dl (0.61-1.24); MAGNESIUM 1.9 mg/dl (1.7-2.5); PHOSPHORUS 4.4 mg/dl (2.5-4.9); POTASSIUM 3.9 mmol/L (3.5-5.1)
[2016-06-29] MEDS: CLOPIDOGREL 75 MG TAB PO SCH (09:00)
[2016-06-29] MEDS: PREGABALIN 25 MG CAP PO SCH ×2 (09:00→22:05)
[2016-06-29] MEDS: DOCUSATE SODIUM 100 MG CAP PO SCH ×2 (09:00→21:51)
[2016-06-29] MEDS: DULOXETINE 30 MG CAP DR PO SCH (09:00)
[2016-06-29] MEDS: TRIAMCINOLONE ACET 0.1% 15 GM CR TOP SCH (09:00)
[2016-06-29] MEDS: DEXTROSE 5%-0.45% NACL 1,000 ML IV SCH (14:48)
--- NOTE | 2016-06-29 15:27 | PN ---
DATE: 06/29/2016 SUBJECTIVE: Mr. Cortes remains stable this morning. No new events. Feels comfortable at this treva e, has no nausea, no vomiting. Currently, remains n.p.o. pending endoscopy this afternoon. PHYSICAL EXAMINATION: VITAL SIGNS: Temperature 98, pulse 81, blood pressure 110/61, O2 saturation 96% on room air. NECK: Supple. No JVD or lymphadenopathy. CARDIAC: S1, S2, no added sounds or murmurs. CHEST: Diminished air entry bilaterally. ABDOMEN: Soft, nontender. No guarding or rebound. EXTREMITIES: No cyanosis, clubbing, edema. NEUROLOGIC: Grossly intact. No focal deficits. LABORATORY DATA: White count 5.5, hemoglobin 12.8, platelets 204, BUN 24, creatinine 0.78. IMPRESSION AND PLAN: An 80-year-old gentleman with history of dehydration and coffeeground emesis. Previously on Plavix and Zetia currently on hold pending endoscopy this afternoon. If endoscopy is unremarkable the patient can resume Plavix and Zetia, resume diet and anticipate discharge tomorrow . Dictated By: BINH AGUSTIN/SONIA Conf#: [id number] DID#: [id number]
[2016-06-29] MEDS ORDERED: MIDAZOLAM 1 MG/ML 2 ML INJ IV PRN (18:30)
[2016-06-29] MEDS ORDERED: ONDANSETRON 4 MG INJ IV PRN (18:30)
[2016-06-29] MEDS ORDERED: FENTAnyl 50 MCG/ML VIAL IV PRN (18:30)
[2016-06-29] MEDS ORDERED: METOCLOPRAMIDE 10 MG INJ IV PRN (18:30)
[2016-06-29] MEDS ORDERED: MEPERIDINE 25 MG INJ IV PRN (18:30)
[2016-06-29] MEDS ORDERED: DIPHENHYDRAMINE 50 MG INJ IV PRN (18:30)
--- NOTE | 2016-06-29 18:48 | GILP ---
DATE OF PROCEDURE: 06/29/2016 PROCEDURE: Esophagogastroduodenoscopy with biopsies. BRIEF HISTORY AND INDICATIONS: The patient is being evaluated for abdominal pain, anemia, nausea, a nd vomiting. PREMEDICATION: Monitored anesthesia care by anesthesiologist. SURGEON: Velia Almodovar MD. INSTRUMENT USED: Olympus panendoscope. TECHNIQUE: After informed consent, with the patient/relatives understanding the procedure, its indic ations, potential risks and complications, including but not limited to: allergic reaction, bleeding , perforation or infection, and after all pertinent questions were answered to the patients satisfac tion, the patient/relatives signed witnessed informed consent. Following this, premedication was administered slowly IV push under careful cardiovascular and respi ratory monitoring with pulse oximetry, automatic blood pressure and electronics tech. Once the sedative effect was achieved the patient was place in the left lateral decubitus, the panen doscope was introduced and advanced under visual control. Careful examination of the upper gastrointestinal tract, both on insertion as well as withdrawal of the instrument disclosed the following findings: ESOPHAGUS: The distal esophagus shows severe erythema, edema, and erosion of the mucosa of the dist al third of the esophagus. A small hiatal hernia is present. STOMACH: Upon entrance to the stomach, air was insufflated, the gastric guallpa distended normally. There is erythema and edema of the mucosa of a moderate degree. Biopsies were obtained to rule out H. pylori infection. PYLORUS: The pylorus appears patent and within normal limits, with no evidence of gastric outlet ob struction. DUODENUM: The duodenal mucosa was carefully examined in the duodenal bulb as well as the second por tion of the duodenum and appears unremarkable with no evidence of duodenitis, ulcer or neoplasm. The instrument was then withdrawn, the patient tolerated the procedure well and was transfer out of the endoscopy suite awake, and in good condition to continue recovery under observation IMPRESSION: 1. Severe erosive esophagitis. 2. Hiatal hernia. 3. Gastritis, rule out Helicobacter pylori infection. PLAN: The patient will be treated with PPI double dose. Further recommendation will depend on revi ew of biopsies as well as patient's clinical course. Dictated By: VELIA ALMODOVAR MS/SONIA Conf#: [id number] DID#: [id number]
[2016-06-29] MEDS ORDERED: hydrALAzine 20 MG INJ ONE (18:56)
[2016-06-29] MEDS ORDERED: hydrALAzine 20 MG INJ IV ONE (19:00)
[2016-06-29] MEDS: traZODone 50 MG TAB PO SCH (21:51)
[2016-06-29] MEDS: EZETIMIBE 10 MG TAB PO SCH (21:51)
[2016-06-30] MEDS: DEXTROSE 5%-0.45% NACL 1,000 ML IV SCH (04:20)
[2016-06-30] MEDS: PANTOPRAZOLE (EC) 40 MG TAB PO SCH (06:19)
[2016-06-30 07:30] VITALS: BP 121/67; RESP 18
[2016-06-30] MEDS: DULOXETINE 30 MG CAP DR PO SCH (09:00)
[2016-06-30] MEDS: CLOPIDOGREL 75 MG TAB PO SCH (09:00)
[2016-06-30] MEDS: PREGABALIN 25 MG CAP PO SCH (09:09)
[2016-06-30] MEDS: DOCUSATE SODIUM 100 MG CAP PO SCH (09:09)
[2016-06-30] MEDS: TRIAMCINOLONE ACET 0.1% 15 GM CR TOP SCH (09:09)
--- NOTE | 2016-06-30 10:11 | CONS ---
Date/Time of Note Date/Time of Note DATE: 06/30/16 TIME: 10:09 Assessment/Plan Assessment/Plan Additional Assessment/Plan Nausea/vomiting * Evaluate GERD vs gastritis * s/p EGD: 1. Severe erosive esophagitis. 2. Hiatal hernia. 3. Gastritis, rule out Helicobacter pylori infection. * Review pathology * Continue PPI twice daily Anemia * Acute vs chronic * Monitor hemoglobin daily, transfuse 1 unit for hemoglobin less than 7.5, transfuse 2 units for hemoglobin less than 7.0 CAD Peripheral neuropathy Further recommendations pending clinical course Patient seen in collaboration with Dr. Almodovar Consultation Date/Type/Reason Admit Date/Time June 29, 2016 at 09:55 Initial Consult Date 06/28/16 Type of Consultation: Gastroenterology Referring Provider: JULIAN BARON 24 HR Interval Summary Free Text/Dictation Advised patient and daughter of test results Patient denies abdominal pain, nausea, vomiting Exam/Review of Systems Vital Signs Vitals Vital Signs Date Time Temp Pulse Resp B/P Pulse Ox O2 Delivery O2 Flow Rate FiO2 06/30/16 07:30 97.8 67 18 121/67 96 06/29/16 21:30 Room Air 06/29/16 18:10 5 Intake and Output 06/29/16 06/29/16 06/30/16 15:00 23:00 07:00 Intake Total 750 ml 650 ml Output Total 1100 ml Balance 750 ml -450 ml Exam Constitutional: alert, oriented, thin, well developed Psych: nl mood/affect Head: normocephalic Eyes: EOMI, nl conjunctiva, nl lids ENMT: nl external ears & nose, nl lips & teeth, nl nasal mucosa & septum Respiratory: clear to auscultation, normal air movement Cardiovascular: regular rate and rhythm Gastrointestinal: soft, non-tender Musculoskeletal: nl extremities to inspection Neurological: STAFF WRITER II-XII intact Results Result Diagram: 06/29/16 0504 06/29/16 0504 Medications Medications Current Medications Ondansetron HCl (Zofran Inj) 4 mg Q6H PRN IV NAUSEA AND/OR VOMITING; Start 06/27 at 22:30 Triamcinolone Acetonide (Kenalog 0.1% Cr) 1 applic DAILY TOP Last administered on 06/30/16t 09:09; Admin Dose 1 APPLIC; Start 06/28/16 at 09:00 Clopidogrel Bisulfate (plaVIX) 75 mg DAILY PO Last administered on 06/28/16 11: 31; Admin Dose 75 MG; Start 06/28/16 at 11:00 Docusate Sodium (Colace) 100 mg Q12 PO Last administered on 06/30/16 09:09; Admin Dose 100 MG; Start 06/28/16 at 11:00 Duloxetine HCl (Cymbalta) 60 mg DAILY PO Last administered on 06/28/16 11:31; Admin Dose 60 MG; Start 06/28/16 at 11:00 EZETIMIBE (Zetia) 10 mg HS PO Last administered on 06/29/16 21:51; Admin Dose 10 MG; Start 06/28/16 at 21:00 Pregabalin (Lyrica) 50 mg BID PO Last administered on 06/30/16 09:09; Admin Dose 50 MG; Start 06/28/16 at 11:00 Trazodone HCl (Desyrel) 50 mg QHS PO Last administered on 06/29/16 21:51; Admin Dose 50 MG; Start 06/28/16 at 21:00 Zolpidem Tartrate 5 mg 5 mg HS PRN PO INSOMNIA; Start 06/28/16 at 11:00 Dextrose/Sodium Chloride (D5-1/2ns) 1,000 ml @ 75 mls/hr [id number] IV Last administered on 06/29/16 14:48; Admin Dose 75 MLS/HR; Start 06/29/16 at 15:00 Pantoprazole (Protonix Tab) 40 mg BID@06,18 PO Last administered on 06/30/16 06 :19; Admin Dose 40 MG; Start 06/29/16 at 18:30 LLOYD QUINTEROS June 30, 2016 10:11
--- NOTE | 2016-06-30 10:41 | PDOCDIS ---
Discharge Instructions DIAGNOSIS Discharge Diagnosis: GI bleed; gastroesophageal reflux disease with erosive esophagitis CONDITION Patient Condition: Good HOME CARE INSTRUCTIONS: Special Diet: Clear Liquids ACTIVITY: Activity Restrictions: No Restrictions Do not operate Machinery Do not operate Power Tool ORI HALEY MD June 30, 2016 10:41
[2016-06-30] MEDS ORDERED: PANT40TA4 PO (10:42)
--- NOTE | 2016-06-30 10:46 | DS ---
Date/Time of Note Date/Time of Note DATE: 06/30/16 TIME: 10:43 Discharge Summary Admission/Discharge Info Admit Date/Time June 29, 2016 at 09:55 Discharge Date/Time 06/30/2016 Final Diagnosis Hiatal hernia with severe erosive esophagitis Patient Condition: Good Consults Gastroenterology Procedures EGD Hx of Present Illness 80-year-old male with a history of coronary artery disease status post STEMI 2015 with PCI and stents to the right coronary, LAD and diagonal branch, peripheral neuropathy, Crohn's disease, hiatal hernia, recurrent aspiration, chronic back pain with most recent admission 09/15/2015 for C. difficile colitis and sepsis secondary to MRSA bacteremia presents to the ED via ambulance for evaluation of nausea and vomiting. Patient states that last night symptoms began with nausea and occasional vomiting which has been almost continuous for the last several hours and now is dark in appearance but there is no gross blood. Denies diarrhea or constipation. No hematochezia or melanotic stools. Denies abdominal pain or back pain. No chest pain or palpitations. Denies shortness of breath or cough. Denies ill contacts, spelled food exposure or recent travel. No fevers or chills. Allergies: Penicillin Medications: See [facility] Hospital Course 80 year old male with past medical history of cad,s/p stemi 06/2015with 3 stents placed,peripheral neuropathy ,recurrent aspirations,crohn disease and hiatal hernia was brought to emergency room because of nausea and vomiting of brownish liquid x4 but no hematemesis,melena,hematochezia,abdominal pain and fever..Denies chest pain nor back pain nor shortness of breath. Emergency room course hemoglobin is 15 now 12,elevated wbc 11.3. Presently ,no episode of vomiting ,denies any abdominal pain,hematemesis,nor hematochezia. Patient was admitted and observed. H and H remained stable. He had an upper endoscopy which demonstrated severe erosive esophagitis. Patient is now stable and will return him to his assisted living facility the [facility]. 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 He will be on PPI inhibitor for 2 months to allow the esophagitis to heal. He has no known communicable diseases he has good rehabilitation potential. Home Meds Active Scripts Pantoprazole* (Pantoprazole*) 40 Mg Tablet., 40 MG PO AC BREAKFAST for 30 Days , TAB 1 Refill Prov:ORI HALEY MD 06/30/16 Reported Medications Duloxetine Hcl* (Duloxetine Hcl*) 60 Mg Capsule.dr, 60 MG PO DAILY, #30 CAP 06/27/16 Melatonin (Melatonin) 5 Mg Tablet, 5 MG PO HS, TAB 06/27/16 Triamcinolone Acetonide (Triamcinolone Acetonide) 0.1% - 15 Gm Cream.gm., 1 APPLIC TOP DAILY, #1 TUB 06/27/16 Docusate Sodium* (Docusate Sodium*) 100 Mg Capsule, 100 MG PO Q12H, #60 CAP 06/27/16 Clopidogrel Bisulfate (Clopidogrel) 75 Mg Tablet, 75 MG PO DAILY, #30 TAB 06/27/16 Omeprazole* (Omeprazole*) 20 Mg Capsule.dr, 20 MG PO DAILY, #30 CAP 06/27/16 Zolpidem Tartrate* (Zolpidem Tartrate* ER) 12.5 Mg Tab.mphase, 12.5 MG PO HS Y for INSOMNIA, #30 TAB.SA 06/27/16 Trazodone Hcl* (Trazodone Hcl*) 50 Mg Tablet, 50 MG PO QHS, #30 TAB 06/27/16 Pregabalin* (Lyrica*) 50 Mg Capsule, 50 MG PO BID, CAP 06/27/16 Ezetimibe* (Zetia*) 10 Mg Tablet, 10 MG PO HS, TAB 09/03/15 Discontinued Reported Medications Ipratropium [place]* (Atrovent HFA*) 12.9 Gm Aer.w.adap, 2 PUFF INHALATION QID Y for WHEEZING AND SOB, #1 INHALER 09/03/15 Ranitidine Hcl* (Zantac*) 150 Mg Tablet, 150 MG PO HS, #30 TAB 09/03/15 Duloxetine Hcl* (Cymbalta*) 60 Mg Capsule.dr, 60 MG PO DAILY, CAP 07/11/15 Pregabalin* (Lyrica*) 100 Mg Capsule, 100 MG PO BID, CAP 07/11/15 ORI HALEY MD June 30, 2016 10:46
== END 2016-06-30 12:00 | disposition home or self-care (01) | DRG 382 ==
LOC: E/R 16:47 → MS2 22:10 → OBSVTOIN 06-29 09:55
PROVIDERS: ADMIT Family Medicine; ATTEND Family Medicine
PROC: 0DB68ZX Excision of Stomach, Via Natural or Artificial Opening Endoscopic, Diagnostic (ICD-10-PCS; principal; 2016-06-29 19:30)
DX: K22.10 Ulcer of esophagus without bleeding (principal); E86.0 Dehydration; D64.9 Anemia, unspecified; R13.10 Dysphagia, unspecified; K44.9 Diaphragmatic hernia without obstruction or gangrene; K29.70 Gastritis, unspecified, without bleeding; I25.10 Atherosclerotic heart disease of native coronary artery without angina pectoris; I25.2 Old myocardial infarction; K59.00 Constipation, unspecified; M54.9 Dorsalgia, unspecified; G89.29 Other chronic pain
CPT/HCPCS: 36415; 71010; 74177; 80048; 80053; 81001; 81003; 83605; 83690; 83735; 84100; 84484; 85025; 85610; 85730; 87040; 87086; 88305; 88312; 92610; 93005; 96374; 96375; C9113; G0378; J0360; J2405; J7030; J7042; Q9967

== ENCOUNTER 2016-09-08 18:56 | Inpatient (IN) | payer MEDICARE, OTHER ==
[~2016-09-08] VITALS: Ht 182.9 cm; Wt 68.7 kg
[~2016-09-08 18:56] MED LIST changes: +CLOP75TA27 PO; +DOCU-159 PO; +DULO60CA59 PO; -DULO60CA6 PO; -IPRA12.93 INHALATION; -LYRI100 PO; +MELA5TAB4 PO; +OMEP20CA16 PO; +PANT40TA4 PO; +PREG50CA PO; -RANI150T9 PO; +TRAZ50TA18 PO; +TRIA15CR55 TOP; +ZOLP12.54 PO
[2016-09-08 19:04] VITALS: Ht 182.9 cm; Wt 68.7 kg
[2016-09-08] MEDS ORDERED: SOD CHLORIDE 0.9% 1,000 ML IV STA (19:04)
[2016-09-08] MEDS ORDERED: LORAZEPAM 2 MG INJ IV STA (19:04)
[2016-09-08] MEDS ORDERED: SODIUM CHLORIDE 0.9% 1L BAG IV* STA (19:19)
--- NOTE | 2016-09-08 19:30 | ERA ---
ER Documentation Chief Complaint Date/Time DATE: 09/08/16 TIME: 19:21 Chief Complaint weakness, shaking bilateral arms from snf HPI This is an 81-year-old male that presents to the emergency department brought in by EMS from [facility]. They indicated the patient became very confused several hours prior to arrival. The patient has a tactile fever with no shaking or chills. The patient denies any recent remote head trauma. It is unknown the patient's mental status at baseline. He has a history of coronary artery disease. There is no complaints of chest pain or pressure. No hemoptysis hematemesis or melanotic stools. Patient has had a decrease in appetite. EMS indicated there is no signs of trauma ROS All systems reviewed and are negative except as per history of present illness. Medications Home Meds Active Scripts Pantoprazole* (Pantoprazole*) 40 Mg Tablet.dr, 40 MG PO AC BREAKFAST for 30 Days , TAB 1 Refill Prov:ORI HARRIS MD 06/30/16 Reported Medications Duloxetine Hcl* (Duloxetine Hcl*) 60 Mg Capsule.dr, 60 MG PO DAILY, #30 CAP 06/27/16 Melatonin (Melatonin) 5 Mg Tablet, 5 MG PO HS, TAB 06/27/16 Triamcinolone Acetonide (Triamcinolone Acetonide) 0.1% - 15 Gm Cream.gm., 1 APPLIC TOP DAILY, #1 TUB 06/27/16 Docusate Sodium* (Docusate Sodium*) 100 Mg Capsule, 100 MG PO Q12H, #60 CAP 06/27/16 Clopidogrel Bisulfate (Clopidogrel) 75 Mg Tablet, 75 MG PO DAILY, #30 TAB 06/27/16 Omeprazole* (Omeprazole*) 20 Mg Capsule., 20 MG PO DAILY, #30 CAP 06/27/16 Zolpidem Tartrate* (Zolpidem Tartrate* ER) 12.5 Mg Tab.mphase, 12.5 MG PO HS Y for INSOMNIA, #30 TAB.SA 06/27/16 Trazodone Hcl* (Trazodone Hcl*) 50 Mg Tablet, 50 MG PO QHS, #30 TAB 06/27/16 Pregabalin* (Lyrica*) 50 Mg Capsule, 50 MG PO BID, CAP 06/27/16 Ezetimibe* (Zetia*) 10 Mg Tablet, 10 MG PO HS, TAB 09/03/15 Allergies Allergies: Coded Allergies: Penicillins (Verified Allergy, Unknown, 06/27/16) rash PMhx/Soc History of Surgery: Yes Anesthesia Reaction: No Hx Neurological Disorder: Yes Hx Respiratory Disorders: No Hx Cardiac Disorders: Yes (VT) Hx Psychiatric Problems: No Hx Miscellaneous Medical Probl: No Hx Alcohol Use: No Hx Substance Use: No Hx Tobacco Use: No Physical Exam Vitals Vital Signs Date Time Temp Pulse Resp B/P Pulse Ox O2 Delivery O2 Flow Rate FiO2 09/08/16 21:05 108 26 107/81 93 Nasal Cannula 2.0 09/08/16 19:05 121 19 114/82 91 Room Air 09/08/16 19:04 101.4 121 22 114/92 92 Physical Exam Constitutional:Well-developed. Well-nourished. Patient appeared very confused and agitated HEENT:Normocephalic. Atraumatic.Pupils were equal round reactive to light. Very dry mucous membranes.No tonsillar exudates. Neck: No nuchal rigidity. No lymphadenopathy. No posterior cervical spine tenderness or step-offs. Respiratory: Not using accessory muscles of respiration.Lungs were clear to auscultation bilaterally. No rhonchi. No rales. No wheezing. Cardiovascular: Regular rate regular rhythm.No murmurs. No rubs were appreciated.S1, S2 normal. Distal pulses are palpable 2+ bilaterally. GI: Abdomen was soft. Nontender. Non Distended. No pulsatile abdominal masses or bruits. No rebound. No guarding. Bowel sounds were present and normal. Muscle skeletal: Full range of motion of both the upper and lower extremities bilaterally.Normal muscle tone.No assymetrical calf tenderness or swelling. Skin: No petechia, no purpura. No lesions on the palms or the soles of the feet. No maculopapular rash. NEURO: Patient was alert, awake, orientated to person but not to place or time. Patient was expressing auditory hallucinations but denies any tactile or visual hallucinations. Result Diagram: 09/08/16191909/08/161919 Results 24 hrs Laboratory Tests Test 09/08/16 19:20 09/08/16 20:55 White Blood Count 13.510^3/ul Red Blood Count 4.3110^6/ul Hemoglobin 13.3g/dl Hematocrit 41.1% Mean Corpuscular Volume 95.4fl Mean Corpuscular Hemoglobin 30.9pg Mean Corpuscular Hemoglobin Concent 32.4g/dl Red Cell Distribution Width 13.7% Platelet Count 55221^3/UL Mean Platelet Volume 9.6fl Neutrophils % 89.0% Lymphocytes % 5.8% Monocytes % 4.4% Eosinophils % 0.1% Basophils % 0.2% Nucleated Red Blood Cells % 0.0/100WBC Neutrophils # 12.010^3/ul Lymphocytes # 0.810^3/ul Monocytes # 0.610^3/ul Eosinophils # 0.010^3/ul Basophils # 0.010^3/ul Nucleated Red Blood Cells # 0.010^3/ul Prothrombin Time 12.8Sec Prothrombin Time Ratio 1.0 INR International Normalized Ratio 0.96 Activated Partial Thromboplast Time 27.6Sec Sodium Level 147mmol/L Potassium Level 4.3mmol/L Chloride Level 104mmol/L Carbon Dioxide Level 28mmol/L Anion Gap 19 Blood Urea Nitrogen 32mg/dl Creatinine 1.10mg/dl Glucose Level 155mg/dl Lactic Acid Level 2.9mmol/L Calcium Level 9.1mg/dl Total Bilirubin 0.3mg/dl Direct Bilirubin 0.00mg/dl Indirect Bilirubin 0.3mg/dl Aspartate Amino Transf (AST/SGOT) 27IU/L Alanine Aminotransferase (ALT/SGPT) 35IU/L Alkaline Phosphatase 93IU/L Ammonia < 9umol/l Creatine Kinase 183IU/L Creatine Kinase Index 1.5 Creatinine Kinase MB (Mass) 2.66ng/ml Troponin I < 0.012ng/ml B-Type Natriuretic Peptide 238PG/ML Total Protein 7.5g/dl Albumin 4.4g/dl Globulin 3.10g/dl Albumin/Globulin Ratio 1.41 Free Thyroxine Index 2.64ug/ml Thyroxine (T4) 7.3ug/dl Triiodothyronine (T3) Uptake 36.1% Salicylates Level < 1.0mg/dl Acetaminophen Level < 10.0ug/ml Ethyl Alcohol Level < 10.0mg/dl Urine Color YELLOW Urine Clarity CLEAR Urine pH 5.0 Urine Specific [place] 1.017 Urine Ketones NEGATIVEmg/dL Urine Nitrite NEGATIVEmg/dL Urine Bilirubin NEGATIVEmg/dL Urine Urobilinogen NEGATIVEmg/dL Urine Leukocyte Esterase NEGATIVELeu/ul Urine Hemoglobin NEGATIVEmg/dL Urine Glucose NEGATIVEmg/dL Urine Total Protein NEGATIVEmg/dl Urine Opiates Screen Negative Urine Barbiturates Negative Urine Amphetamines Screen Negative Urine Benzodiazepines Screen Negative Urine Cocaine Screen Negative Urine Cannabinoids Negative Current Medications Medications (Trade) Dose Ordered Sig/Renita Route PRN Reason Start Time Stop Time Status Last Admin Dose Admin Lorazepam 1 mg 1 mg ONCE STAT IV 09/08/16 19:04 09/08/16 19:06 DC 09/08/16 19:51 Sodium Chloride (NS) 1,000 ml @ 1,000 mls/hr Q1H STAT IV 09/08/16 19:04 09/08/16 20:03 DC 09/08/16 19:47 Sodium Chloride 2050 ml 2,050 ml BOLUS OVER 2 HOURS STAT IV* 09/08/16 19:19 09/08/16 19:20 DC 09/08/16 19:47 Vancomycin HCl 250 ml @ 125 mls/hr ONCE ONCE IVPB 09/08/16 21:00 09/08/16 22:59 DC Ceftriaxone Sodium (Rocephin) 50 ml @ 100 mls/hr ONCE STAT IVPB 09/08/16 20:45 09/08/16 21:14 DC 09/08/16 21:35 Acetaminophen (Tylenol Tab) 1,000 mg ONCE STAT PO 09/08/16 20:46 09/08/16 20:49 DC 09/08/16 21:35 Ibuprofen (Motrin) 800 mg ONCE ONCE PO 09/08/16 21:00 09/08/16 21:01 DC 09/08/16 21:35 Procedures/MDM The patient presented to the emergency department with an acute and persistent change in their mental status. The differential diagnosis is diverse however reversible causes such as hypoglycemia, opiate overdose, thiamine deficiency were immediately considered. The patient was placed on a cigar head piercer, continuous pulse oximetry and IV access was established. The patients airway was secure however hypoxic events such as anemia, shock, or severe pulmonary disease were all considered as etiologies in this patients presentation. Circulation assessed with good cap refill and did not require fluids or pressure support. Finger stick for rapid glucose determined to be normal. Patient's infectious symptoms have not stabilized and the patient is at risk of rapid decompensation. The patient will be admitted for careful hydration, antibiotic therapy, and infectious source control. Severe Sepsis Assessment: Infectious Source: Suspected urinary tract infection End organ damage indicated by: Lactate > 2.0 mmol/L Severe Sepsis Managment: Blood Cultures X 2 before broad spectrum antibiotics initiated within 3 hours of recognition. 30 ml/kg NS bolus Completed Initial Lactate: 2.2 Repeat Lactate pending I considered further perfusion assessment with CVP measurement, SCVO2, bedside ultrasound volume assessment, passive leg raise, trial of further fluid bolus. And preceded with IV fluids 12 Lead EKG tracing ordered and reviewed by myself showed: Sinus tachycardia 117 bpm and no arrhythmia. ND interval normal peer QRS duration normal. No ST segment elevation. Q waves present in the inferior lead to [address] segment depression. No changes consistent with acute ischemia. The patient was started on broad-spectrum antibiotics but did not have a clear source of the patient's sepsis given that his urinalysis showed no pyuria or leukocyte positive. However blood cultures and urine cultures were obtained. The patient was started on vancomycin and ceftriaxone. The patient will be admitted in serious condition to the hospitalist Dr. Stark. The patient had a previous admission under the care of Dr. Harris however spoke with him personally he indicated that this is a panel patient and not 1 of his own personal patient's. The patient will be admitted to the telemetry service with an anticipated stay of greater than 2 midnights. The patient did require IV Ativan in the emergency department as he became very belligerent and agitated attempted to move life saving devices. Once the patient received IV fluids and antibiotics he returned to his baseline mental status as he was alert awake orientated to person place and time. Also please note that a Zarate catheter had to be placed in order to measure urinary output Critical Care: Time: 35 minutes Treatments/Evaluations: Close monitoring and treatment of unstable vital signs, cardiorespiratory, and neurologic status, while maintaining tight balance of fluid, respiratory, and cardiac interventions. Time does not include performing any of the above billable procedures. Departure Diagnosis: Primary Impression: Altered mental status Qualified Code: R41.82 - Altered mental status, unspecified altered mental status type Additional Impression: Sepsis Qualified Code: A41.9 - Sepsis, due to unspecified organism Condition: Serious SARAH CURTIS Sep 08, 2016 19:30
--- NOTE | 2016-09-08 19:34 | RADRPT ---
PROCEDURE: XR Chest. CLINICAL INDICATION: Shortness of breath. Altered mental status. TECHNIQUE: Single frontal view. COMPARISON: 06/27/2016. FINDINGS: There is mild interstitial disease bilaterally consistent with pulmonary edema. The lungs are otherw ise clear. The heart size is normal. There is calcification in the aorta consistent with atherosclerosis. There is no pleural effusion. There is no pneumothorax. IMPRESSION: 1. Mild pulmonary edema. 2. Atherosclerosis. RPTAT: QQ .Luis Thomas MD, MD Date Time Electronically viewed and signed by .Luis Thomas MD, MD on 09/08/2016 19:34 .R/
--- NOTE | 2016-09-08 19:43 | RADRPT ---
PROCEDURE: CT Brain without contrast. CLINICAL INDICATION: Altered mental status. TECHNIQUE: A CT of the brain without contrast was performed utilizing axial sections from the skul l base through the vertex. The patient was scanned without intravenous contrast enhancement. Sagitta l and coronal reformatted images were obtained using the data from the axial images. Total exam DLP is 810.25 mGy-cm. CTDIvol is 45.01 mGy. One or more of the following dose reduction techniques were used: Automated exposure control, adjustment of the mA and/or kV according to patient size, use of iterative reconstruction technique. COMPARISON: None available. FINDINGS: There is normal cruz-white matter differentiation. There is enlargement of the ventricles and subarachnoid spaces consistent with atrophy. There is decreased attenuation of the periventricular white matter consistent with microangiopathic ischemic change. There is no intracranial hemorrhage or space-occupying lesion. There are vascular calcifications consistent with atherosclerosis. There is no skull fracture or lytic lesion. There is fluid in the maxillary sinuses with left worse than right. IMPRESSION: 1. Atrophy. 2. Microangiopathic ischemic change. 3. Atherosclerosis. 4. Fluid in the maxillary sinuses with left worse than right. 5. No intracranial hemorrhage. 6. Otherwise unremarkable noncontrast CT scan of the brain. RPTAT: QQ .Luis Thomas MD, MD Date Time Electronically viewed and signed by .Luis Thomas MD, on 09/08/2016 19:42 .R/
[2016-09-08 19:44] LABS: ADD SCAN DIFF NO
[2016-09-08 19:47] LABS: BASOPHILS % 0.2 % (0.0-2.0); EOSINOPHILS % 0.1 % (0.0-7.0); HEMATOCRIT 41.1 % (42.0-52.0); HEMOGLOBIN 13.3 g/dl (14.0-18.0); LYMPHOCYTES # 0.8 10^3/ul (0.8-2.9); LYMPHOCYTES % 5.8 % (15.0-51.0); MEAN CORPUSCULAR HEMOGLOBIN 30.9 pg (29.0-33.0); MEAN CORPUSCULAR HGB CONC 32.4 g/dl (32.0-37.0); MEAN CORPUSCULAR VOLUME 95.4 fl (82.0-101.0); MEAN PLATELET VOLUME 9.6 fl (7.4-10.4); MONOCYTE # 0.6 10^3/ul (0.3-0.9); MONOCYTES % 4.4 % (0.0-11.0); PLATELET COUNT 238 10^3/UL (140-415); RED BLOOD COUNT 4.31 10^6/ul (4.70-6.10); RED CELL DISTRIBUTION WIDTH 13.7 % (11.5-14.5); WHITE BLOOD COUNT 13.5 10^3/ul (4.8-10.8)
[2016-09-08 20:03] LABS: INR 0.96; PROTIME 12.8 Sec (12.2-14.2)
[2016-09-08 20:04] LABS: PARTIAL THROMBOPLASTIN TIME 27.6 Sec (25.0-35.0)
[2016-09-08 20:10] LABS: ALANINE AMINOTRANSFERASE 35 IU/L (13-69); ALBUMIN 4.4 g/dl (3.3-4.9); ALBUMIN/GLOBULIN RATIO 1.41; ALKALINE PHOSPHATASE 93 IU/L (42-121); ANION GAP 19 (8-16); ASPARTATE AMINO TRANSFERASE 27 IU/L (15-46); BILIRUBIN,INDIRECT 0.3 mg/dl (0-1.1); BILIRUBIN,TOTAL 0.3 mg/dl (0.2-1.3); BLOOD UREA NITROGEN 32 mg/dl (7-20); CALCIUM 9.1 mg/dl (8.4-10.2); CARBON DIOXIDE 28 mmol/L (21-31); CHLORIDE 104 mmol/L (97-110); CREATINE KINASE 183 IU/L (23-200); GLUCOSE 155 mg/dl (70-220); POTASSIUM 4.3 mmol/L (3.5-5.1); SODIUM 147 mmol/L (135-144); TOTAL PROTEIN 7.5 g/dl (6.1-8.1)
[2016-09-08 20:19] LABS: ACETAMINOPHEN < 10.0 ug/ml (10.0-30.0); ETHANOL < 10.0 mg/dl; SALICYLATE < 1.0 mg/dl (5.0-30.0)
[2016-09-08 20:20] LABS: AMMONIA < 9 umol/l (9-30)
[2016-09-08 20:22] LABS: CK-MB 2.66 ng/ml (0.0-2.4); LACTIC ACID 2.9 mmol/L (0.5-2.0); TROPONIN-I < 0.012 ng/ml (0.00-0.12)
[2016-09-08] MEDS ORDERED: CEFTRIAXONE 1 GM/50 ML (PMX) 50 ML IVPB STA (20:45)
[2016-09-08] MEDS ORDERED: ACETAMINOPHEN 500 MG TAB PO STA (20:46)
[2016-09-08 20:50] LABS: T3 UPTAKE 36.1 % (23.5-40.5)
[2016-09-08] MEDS ORDERED: VANCOMYCIN 1 GM (PMX) 250 ML IVPB ONE (21:00)
[2016-09-08] MEDS ORDERED: IBUPROFEN 800 MG TAB PO ONE (21:00)
[2016-09-08 21:11] LABS: ADD UMIC NO; UR ASCORBIC ACID NEGATIVE (NEGATIVE); UR BILIRUBIN (Dip) NEGATIVE (NEGATIVE); UR BLOOD (Dip) NEGATIVE (NEGATIVE); UR CLARITY CLEAR (CLEAR); UR COLOR YELLOW (YELLOW); UR GLUCOSE (Dip) NEGATIVE (NEGATIVE); UR KETONES (Dip) NEGATIVE (NEGATIVE); UR LEUKOCYTE ESTERASE (Dip) NEGATIVE Leu/ul (NEGATIVE); UR NITRITE (Dip) NEGATIVE (NEGATIVE); UR SPECIFIC GRAVITY (Dip) 1.017 (1.003-1.030); UR TOTAL PROTEIN (Dip) NEGATIVE (NEGATIVE); UR UROBILINOGEN (Dip) NEGATIVE (NEGATIVE)
[2016-09-08 21:33] LABS: BARBITURATES Negative (NEGATIVE); BENZODIAZEPINES Negative (NEGATIVE); CANNABINOIDS Negative (NEGATIVE); COCAINE Negative (NEGATIVE); OPIATES Negative (NEGATIVE)
[2016-09-09] MEDS ORDERED: NACL 0.9% 3 ML SYG IV SCH (01:00)
[2016-09-09] MEDS ORDERED: ACETAMINOPHEN 325 MG TAB PO PRN ×2 (01:00)
[2016-09-09] MEDS ORDERED: ONDANSETRON 4 MG INJ IV PRN ×2 (01:00)
[2016-09-09] MEDS ORDERED: BISACODYL (EC) 5 MG TAB PO PRN (01:00)
[2016-09-09] MEDS ORDERED: AZTREONAM 0.5 GM in SOD CHLORIDE 0.9% 50 ML IV SCH (01:00)
[2016-09-09] MEDS ORDERED: DOCUSATE SODIUM 100 MG CAP PO PRN (01:00)
[2016-09-09] MEDS ORDERED: VANCOMYCIN IV PER PHARMACY XX SCH (01:00)
[2016-09-09 05:41] LABS: ADD SCAN DIFF NO
--- NOTE | 2016-09-09 05:41 | HP ---
Date/Time of Note Date/Time of Note DATE: 09/09/16 TIME: 05:36 Assessment/Plan VTE Prophylaxis VTE Prophylaxis Intervention: SCD's Assessment/Plan Chief Complaint/Hosp Course This is a 81-year-old male being admitted to the telemetry floor for: #1 sepsis: Patient presented with fevers tachycardia tachypnea as well as elevated white blood cell count. Initial lactate was 2.9. So far no positive source of infection has been identified but there is suspicion for it based on his fevers and his lab work as well as clinical condition. He was started on broad-spectrum antibiotics in the ED. We will continue broad-spectrum antibiotics while taking into account his penicillin allergy. Await urine and blood cultures. Chest x-ray right now was normal. Repeat as indicated. Tylenol for fevers. Infectious disease consultation. Consider CT chest of the abdomen pelvis in a.m. Patient did have previous history of C. difficile and MRSA bacteremia. Currently no signs of any diarrhea. Among the antibiotics that he is on Vanco is included. #2 Encephalopathy: Likely infectious in etiology based on #1. CAT scan was did not show any acute abnormalities. Will continue to treat with antibiotics and attempt to gather better history from the transferring facility regarding patient's baseline mental status. #3 Coronary artery disease: Stable, patient passes swallow eval will resume his home medications. #4 history of recurrent aspiration: We will need to assess swallow eval before we can start feeding in giving medications by mouth. #5 Crohn's disease: The current time there appears to be no diarrhea and he does not appear to be in any abdominal distress. Continue to monitor. #6 DVT and GI prophylaxis: SCDs, Protonix Further treatment strategy of improvement as per the clinical course Problems: HPI/ROS Admit Date/Time Admit Date/Time Hx of Present Illness Chief complaint: Altered mental status. This is an 81-year-old male that presents to the emergency department brought in by EMS from [facility]. Following history was obtained from the ED documentation. As per the documentation, [facility] indicated the patient became very confused several hours prior to arrival. The patient has a tactile fever with no shaking or chills. The patient denies any recent remote head trauma. It is unknown the patient's mental status at baseline. He has a history of coronary artery disease. There is no complaints of chest pain or pressure. No hemoptysis hematemesis or melanotic stools. Patient has had a decrease in appetite. EMS indicated there is no signs of trauma. At the current time of my examination patient is sleeping he is easily arousable however he is confused. Allergies: Penicillin Occasions: See MAR ROS Subjective hx not possible: other (patient confused) PMH/Family/Social Past Medical History STEMI 06/2015 with stents, peripheral neuropathy, Crohn's disease, hiatal hernia , recurrent aspiration, chronic back pain, history of C. difficile infection and MRSA bacteremia Past Surgical History Past Surgical History Abdominal surgery, patient is unclear as to what exactly he had done Past Surgical Hx: angioplasty Family History Significant Family History: no pertinent family hx Social History Alcohol Use: none Smoking Status: Former smoker Drug Use: none Exam/Review of Systems Vital Signs Vitals Vital Signs Date Time Temp Pulse Resp B/P Pulse Ox O2 Delivery O2 Flow Rate FiO2 09/09/16 00:45 61 20 106/77 100 Nasal Cannula 2.0 09/08/16 19:04 101.4 Exam Exam Constitutional: At the current time patient is somnolent yet arousable but he is confused HEENT:Normocephalic. Atraumatic.Pupils were equal round reactive to light. Very dry mucous membranes.No tonsillar exudates. Neck: No nuchal rigidity. No lymphadenopathy. No posterior cervical spine tenderness or step-offs. Respiratory: not in acute distress.Lungs were clear to auscultation bilaterally. No rhonchi. No rales. No wheezing. Cardiovascular: Regular rate regular rhythm.No overt murmurs auscultated.. Distal pulses are palpable 2+ bilaterally. GI: Abdomen was soft. Nontender. Non Distended. No pulsatile abdominal masses or bruits. No rebound. No guarding. Bowel sounds were present and normal. Muscle skeletal: Full range of motion of both the upper and lower extremities bilaterally.Normal muscle tone. No assymetrical calf tenderness or swelling. Skin: No petechia, no purpura. No lesions on the palms or the soles of the feet. No maculopapular rash. NEURO: As per the ED physician documentation patient was alert, awake, orientated to person but not to place or time. Patient was expressing auditory hallucinations but denied any tactile or visual hallucinations. At the current time he is somnolent but arousable however he does still appear to be confused. Additional Comments PROCEDURE: CT Brain without contrast. CLINICAL INDICATION: Altered mental status. TECHNIQUE: A CT of the brain without contrast was performed utilizing axial sections from the skull base through the vertex. The patient was scanned without intravenous contrast enhancement. Sagittal and coronal reformatted images were obtained using the data from the axial images. Total exam DLP is 810.25 mGy-cm. CTDIvol is 45.01 mGy. One or more of the following dose reduction techniques were used: Automated exposure control, adjustment of the mA and/or kV according to patient size, use of iterative reconstruction technique. COMPARISON: None available. FINDINGS: There is normal cruz-white matter differentiation. There is enlargement of the ventricles and subarachnoid spaces consistent with atrophy. There is decreased attenuation of the periventricular white matter consistent with microangiopathic ischemic change. There is no intracranial hemorrhage or space-occupying lesion. There are vascular calcifications consistent with atherosclerosis. There is no skull fracture or lytic lesion. There is fluid in the maxillary sinuses with left worse than right. IMPRESSION: 1. Atrophy. 2. Microangiopathic ischemic change. 3. Atherosclerosis. 4. Fluid in the maxillary sinuses with left worse than right. 5. No intracranial hemorrhage. 6. Otherwise unremarkable noncontrast CT scan of the brain. RPTAT: QQ .Luis Thomas MD, Date Time Electronically viewed and signed by .Luis Thomas MD, MD on 09/08/2016 19:42 PROCEDURE: XR Chest. CLINICAL INDICATION: Shortness of breath. Altered mental status. TECHNIQUE: Single frontal view. COMPARISON: 06/27/2016. FINDINGS: There is mild interstitial disease bilaterally consistent with pulmonary edema. The lungs are otherwise clear. The heart size is normal. There is calcification in the aorta consistent with atherosclerosis. There is no pleural effusion. There is no pneumothorax. IMPRESSION: 1. Mild pulmonary edema. 2. Atherosclerosis. RPTAT: QQ .Luis Thomas MD, MD Date Time Electronically viewed and signed by .Luis Thomas MD, on 09/08/2016 19:34 Labs Result Diagram: 09/08/16191909/08/161919 Medications Medications Current Medications Ondansetron HCl (Zofran Inj) 4 mg Q6H PRN IV NAUSEA AND/OR VOMITING; Start at 01:00 Acetaminophen (Tylenol Tab) 650 mg Q6H PRN PO PAIN LEVEL 1-3 OR FEVER; Start at 01:00 Docusate Sodium (Colace) 100 mg Q12H PRN PO CONSTIPATION; Start 09/09/16 at 01: 00 Bisacodyl (Dulcolax) 5 mg DAILY PRN PO CONSTIPATION; Start 09/09/16 at 01:00 Pantoprazole 40 mg 40 mg DAILY@06 IV ; Start 09/09/16 at 06:00 Aztreonam 0.5 gm/ Sodium Chloride 50 ml @ 100 mls/hr Q12 IV Last administered on 09/09/16t 04:12; Admin Dose 100 MLS/HR; Start 09/09/16 at 01:00 Vancomycin HCl (Vancocin) 250 ml @ 125 mls/hr Q24H IVPB ; Start 09/09/16 at 12: 00 JULIAN BARON Sep 09, 2016 05:41
[2016-09-09 05:46] LABS: BASOPHILS % 0.3 % (0.0-2.0); EOSINOPHILS # 0.2 10^3/ul (0.0-0.5); EOSINOPHILS % 1.4 % (0.0-7.0); HEMOGLOBIN 11.8 g/dl (14.0-18.0); LYMPHOCYTES # 1.4 10^3/ul (0.8-2.9); LYMPHOCYTES % 11.7 % (15.0-51.0); MEAN CORPUSCULAR HEMOGLOBIN 30.2 pg (29.0-33.0); MEAN CORPUSCULAR HGB CONC 31.1 g/dl (32.0-37.0); MEAN CORPUSCULAR VOLUME 97.2 fl (82.0-101.0); MEAN PLATELET VOLUME 9.9 fl (7.4-10.4); MONOCYTE # 0.7 10^3/ul (0.3-0.9); MONOCYTES % 5.5 % (0.0-11.0); NEUTROPHIL # 9.5 10^3/ul (1.6-7.5); NEUTROPHILS % 80.8 % (39.0-77.0); PLATELET COUNT 210 10^3/UL (140-415); RED BLOOD COUNT 3.91 10^6/ul (4.70-6.10); RED CELL DISTRIBUTION WIDTH 13.9 % (11.5-14.5); WHITE BLOOD COUNT 11.7 10^3/ul (4.8-10.8)
[2016-09-09] MEDS ORDERED: PANTOPRAZOLE 40 MG INJ IV SCH (06:00)
[2016-09-09 06:03] LABS: ALBUMIN 3.4 g/dl (3.3-4.9); ALBUMIN/GLOBULIN RATIO 1.21; BILIRUBIN,INDIRECT 0.5 mg/dl (0-1.1); BILIRUBIN,TOTAL 0.5 mg/dl (0.2-1.3); CALCIUM 8.2 mg/dl (8.4-10.2); CREATININE 0.95 mg/dl (0.61-1.24); MAGNESIUM 1.9 mg/dl (1.7-2.5); POTASSIUM 4.3 mmol/L (3.5-5.1); TOTAL PROTEIN 6.2 g/dl (6.1-8.1)
[2016-09-09] MEDS: AZTREONAM 1 GM/NS (PMX) 50 ML IVPB SCH ×2 (09:50→21:17)
[2016-09-09] MEDS: VANCOMYCIN 500MG/NS (PMX) 100 ML IVPB SCH (11:01)
[2016-09-09] MEDS ORDERED: VANCOMYCIN 1 GM in NS 250 ML IVPB SCH (12:00)
[2016-09-09 12:05] VITALS: BP 128/63; RESP 18
[2016-09-09 12:11] VITALS: PULSE 53
--- NOTE | 2016-09-09 13:13 | PN ---
Date/Time of Note Date/Time of Note DATE: 09/09/16 TIME: 13:08 Assessment/Plan VTE Prophylaxis VTE Prophylaxis Intervention: SCD's Lines/Catheters IV Catheter Type (from Nrsg): Peripheral IV Urinary Cath still in place: Yes Reason Cath still needed: other (indicate) (will dc) Assessment/Plan Assessment/Plan 81 yo M with pmhx chronic neurodegenerative condition of unclear etio with resultant recurrent aspiration, CAD sp STEMI and PCI, IBD (Crohns), chronic pain admitted for sepsis (fever/tachycardia), source unclear. UA pristine, CXR without infiltrate, and blood cultures ngtd PLAN: ABX x 48 hours then dc encephalopathy resolved (suspect 2/2 sepsis) cont home meds transfer from tele to med surg d/c casas DVT prophx Subjective 24 Hr Interval Summary Free Text/Dictation Pt feels better this AM. per caregiver is much closer to baseline. Pt does not know the etio of his chronic neurodegenerate condition, states it has been present for the past 2 years Exam/Review of Systems Vital Signs Vitals Vital Signs Date Time Temp Pulse Resp B/P Pulse Ox O2 Delivery O2 Flow Rate FiO2 09/09/16 12:11 53 09/09/16 12:05 96.5 18 128/63 94 09/09/16 07:02 Room Air 09/09/16 00:45 2.0 Exam nad, laying in bed slurred speech (baseline per pt and caregiver) no mrg lungs clear abd soft casas in place-->does not use casas at baseline Results Result Diagram: 09/09/16 0512 09/09/16 0512 Results 24 hrs Laboratory Tests Test 09/08/16 19:20 09/08/16 20:55 09/09/16 01:17 09/09/16 05:12 White Blood Count 13.5 #H 11.7 H Red Blood Count 4.31 L 3.91 L Hemoglobin 13.3 L 11.8 L Hematocrit 41.1 L 38.0 L Mean Corpuscular Volume 95.4 97.2 Mean Corpuscular Hemoglobin 30.9 30.2 Mean Corpuscular Hemoglobin Concent 32.4 31.1 L Red Cell Distribution Width 13.7 13.9 Platelet Count 238 210 Mean Platelet Volume 9.6 9.9 Neutrophils % 89.0 H 80.8 H Lymphocytes % 5.8 L 11.7 L Monocytes % 4.4 5.5 Eosinophils % 0.1 1.4 Basophils % 0.2 0.3 Nucleated Red Blood Cells % 0.0 0.0 Neutrophils # 12.0 H 9.5 H Lymphocytes # 0.8 1.4 Monocytes # 0.6 0.7 Eosinophils # 0.0 0.2 Basophils # 0.0 0.0 Nucleated Red Blood Cells # 0.0 0.0 Prothrombin Time 12.8 Prothrombin Time Ratio 1.0 INR International Normalized Ratio 0.96 Activated Partial Thromboplast Time 27.6 Sodium Level 147 H 147 H Potassium Level 4.3 4.3 Chloride Level 104 106 Carbon Dioxide Level 28 29 Anion Gap 19 H 16 Blood Urea Nitrogen 32 H 29 H Creatinine 1.10 0.95 Glucose Level 155 98 # Lactic Acid Level 2.9 *H 1.4 Calcium Level 9.1 8.2 L Total Bilirubin 0.3 0.5 Direct Bilirubin 0.00 0.00 Indirect Bilirubin 0.3 0.5 Aspartate Amino Transf (AST/SGOT) 27 26 Alanine Aminotransferase (ALT/SGPT) 35 36 Alkaline Phosphatase 93 78 Ammonia < 9 L Creatine Kinase 183 Creatine Kinase Index 1.5 Creatinine Kinase MB (Mass) 2.66 H Troponin I < 0.012 B-Type Natriuretic Peptide 238 Total Protein 7.5 6.2 # Albumin 4.4 3.4 # Globulin 3.10 2.80 Albumin/Globulin Ratio 1.41 1.21 Free Thyroxine Index 2.64 Thyroxine (T4) 7.3 Triiodothyronine (T3) Uptake 36.1 Salicylates Level < 1.0 L Acetaminophen Level < 10.0 L Ethyl Alcohol Level < 10.0 Urine Color YELLOW Urine Clarity CLEAR Urine pH 5.0 Urine Specific [place] 1.017 Urine Ketones NEGATIVE Urine Nitrite NEGATIVE Urine Bilirubin NEGATIVE Urine Urobilinogen NEGATIVE Urine Leukocyte Esterase NEGATIVE Urine Hemoglobin NEGATIVE Urine Glucose NEGATIVE Urine Total Protein NEGATIVE Urine Opiates Screen Negative Urine Barbiturates Negative Urine Amphetamines Screen Negative Urine Benzodiazepines Screen Negative Urine Cocaine Screen Negative Urine Cannabinoids Negative Magnesium Level 1.9 Medications Medications Current Medications Ondansetron HCl (Zofran Inj) 4 mg Q6H PRN IV NAUSEA AND/OR VOMITING; Start at 01:00 Acetaminophen (Tylenol Tab) 650 mg Q6H PRN PO PAIN LEVEL 1-3 OR FEVER; Start at 01:00 Docusate Sodium (Colace) 100 mg Q12H PRN PO CONSTIPATION; Start 09/09/16 at 01: 00 Bisacodyl 5 mg 5 mg DAILY PRN PO CONSTIPATION; Start 09/09/16 at 01:00 Aztreonam 50 ml @ 100 mls/hr Q12 IVPB Last administered on 09/09/16t 09:50; Admin Dose 100 MLS/HR; Start 09/09/16 at 09:00 Vancomycin HCl (Vancocin) 100 ml @ 100 mls/hr Q12H IVPB Last administered on t 11:01; Admin Dose 100 MLS/HR; Start 09/09/16 at 12:00 Miscellaneous Information (*Rx Drug Level Order Reminder*) VANCOMYCIN TROUGH AT 1100 ONCE ONCE XX ; Start 09/10/16 at 11:00; Stop 09/10/16 at 11:01 Clopidogrel Bisulfate (plaVIX) 75 mg DAILY PO ; Start 09/10/16 at 09:00 Docusate Sodium (Colace) 100 mg Q12 PO ; Start 09/09/16 at 13:00 Duloxetine HCl (Cymbalta) 60 mg DAILY PO ; Start 09/10/16 at 09:00 EZETIMIBE (Zetia) 10 mg HS PO ; Start 09/09/16 at 21:00 Pregabalin (Lyrica) 50 mg BID PO ; Start 09/09/16 at 21:00 Trazodone HCl (Desyrel) 50 mg QHS PO ; Start 09/09/16 at 21:00 Triamcinolone Acetonide (Kenalog 0.1% Cr) 1 applic DAILY TOP ; Start 09/10/16 at 09:00 TG ORLANDO MD Sep 09, 2016 13:13
[2016-09-09] MEDS: DOCUSATE SODIUM 100 MG CAP PO SCH ×2 (14:13→20:23)
[2016-09-09 15:43] VITALS: BP 105/64; RESP 18
[2016-09-09 16:16] VITALS: PULSE 59
[2016-09-09] MEDS: traZODone 50 MG TAB PO SCH (20:23)
[2016-09-09] MEDS: PREGABALIN 50 MG CAP PO SCH (20:23)
[2016-09-09 20:52] VITALS: BP 120/66; RESP 18
[2016-09-09] MEDS: EZETIMIBE 10 MG TAB PO SCH (21:16)
[2016-09-10] MEDS: VANCOMYCIN 500MG/NS (PMX) 100 ML IVPB SCH ×2 (00:54→12:51)
[2016-09-10 03:07] VITALS: BP 154/70; RESP 18
[2016-09-10] MEDS ORDERED: PENDING SANTYL ORDER FOR WOUND CARE XX PRN (03:30)
[2016-09-10] MEDS ORDERED: PANTOPRAZOLE (EC) 40 MG TAB PO SCH (07:30)
[2016-09-10 08:09] VITALS: BP 169/89; RESP 19
[2016-09-10 08:58] VITALS: BP 144/80; PULSE 79
[2016-09-10] MEDS ORDERED: DULOXETINE 30 MG CAP DR PO SCH (09:00)
[2016-09-10] MEDS ORDERED: TRIAMCINOLONE ACET 0.1% 15 GM CR TOP SCH (09:00)
[2016-09-10] MEDS ORDERED: CLOPIDOGREL 75 MG TAB PO SCH (09:00)
[2016-09-10] MEDS: PREGABALIN 50 MG CAP PO SCH ×2 (09:07→20:10)
[2016-09-10] MEDS: DOCUSATE SODIUM 100 MG CAP PO SCH ×2 (09:08→20:10)
[2016-09-10] MEDS: AZTREONAM 1 GM/NS (PMX) 50 ML IVPB SCH ×2 (09:44→20:10)
--- NOTE | 2016-09-10 12:13 | PDOCDIS ---
Discharge Instructions CONDITION Patient Condition: Stable HOME CARE INSTRUCTIONS: Special Diet: Low Fat/Cholesterol FOLLOW UP/APPOINTMENTS Follow-up Plan 1.Follow up with primary care physician in 1 week If you don't have one please let someone know, we can give you resources that may help you pick one. You may also call your insurance company to assign one to you. Review your medication list with your nurse before leaving and if you need new prescriptions please let your nurse know. I may have made changes to your home medications or given you new prescriptions, please let your primary doctor know as well. Stay compliant with your medications and report any side effects to your PCP or pharmacist. Return to the ER if you have any concerns and cannot reach your doctors or call your insurance company, they usually have a nurse that can help you. 2. Aspiration precautions JAZMIN DUEÑAS NP Sep 10, 2016 12:12
--- NOTE | 2016-09-10 12:31 | DS ---
Date/Time of Note Date/Time of Note DATE: 09/10/16 TIME: 12:20 Discharge Summary Admission/Discharge Info Admit Date/Time Sep 08, 2016 at 23:41 Discharge Date/Time Discharge Diagnosis 1. Systemic inflammatory response syndrome. Resolved. 2. Toxic metabolic encephalopathy, likely dehydration related. Resolved. 3. Dehydration. Resolved. 4. Coronary artery disease: Stable, patient passes swallow eval will resume his home medications. 5 Crohn's disease: The current time there appears to be no diarrhea and he does not appear to be in any abdominal distress. Continue to monitor. 6. Hypernatremia secondary to dehydration. Resolved. Patient Condition: Stable Procedures Chest x-ray 09/08/2016. Mild pulmonary edema. CT brain without contrast 09/08/2016. Microangiopathic ischemic changes. No intracranial hemorrhage/acute infarct. Unremarkable noncontrast CT. Hospital Course This is an elderly 81-year-old male with a past medical history of STEMI with stents placed, peripheral neuropathy, Crohn's disease, recurrent aspiration, chronic back pain, hiatal hernia, history of C. difficile infection and MRSA bacteremia, who was brought to the emergency department by EMS from [facility] due to worsening confusion for several hours. Patient also had low-grade fever without any chills. In the emergency room, initial labs showed elevated WBC 13,500 with elevated lactate 2.9. Patient's sodium was 147. His urine analysis was negative for any infection. Chest x- ray did not show any acute infectious process. A brain CT was negative for any acute process. EKG showed sinus tachycardia at 1 17 bpm. In the emergency room, patient was started on broad-spectrum antibiotics. He was given vancomycin and ceftriaxone. Patient also received IV fluids. In the emergency room, patient returned to his baseline mental status. A Zarate catheter also was placed in the emergency room. A clinical decision was made to admit patient for further evaluation. Patient was admitted to telemetry. Blood and urine cultures were sent. He was continued on appropriate antibiotic regimen. As patient was dehydrated upon arrival, he was aggressively given IV fluids. Neuro status was monitored. He was also placed on DVT and GI prophylaxis with SCDs and Protonix. Patient did not have any arrhythmias. His mentation remained at his baseline and he was transferred back to [facility] for another day. He was continued on antibiotics. Blood and urine cultures returned negative. There was no further fevers. WBC also started trending down. Lactic acidosis also resolved. Although, it was mentioned sepsis in the beginning, there was no source to rule in sepsis. Patient symptoms more likely secondary to dehydration as evidenced by hyponatremia, transient tachycardia with slight elevation in WBC count and on and off confusion. Patient was also at risk for aspiration. However, at this time, he is able to tolerate his diet. Patient is completely back to his baseline mental status though he remained confused at times which is his baseline. Patient remained a total of 48 hours of IV antibiotics. At this time , there is no source of infection and he does not need any further antibiotics. A clinical decision was made to discharge patient back to the facility he came from. Disposition: Patient to be discharged back to [facility] [place] [facility] [place]. Patient to be followed up with his primary care physician in 1 week. Case management/nursing staff to arrange discharge. Approximately 60 minutes was spent on coordinating discharge on this patient. Case discussed with . Home Meds Active Scripts Pantoprazole* (Pantoprazole*) 40 Mg Tablet.dr, 40 MG PO AC BREAKFAST for 30 Days , TAB 1 Refill Prov:ORI HALEY MD 06/30/16 Reported Medications Duloxetine Hcl* (Duloxetine Hcl*) 60 Mg Capsule.dr, 60 MG PO DAILY, #30 CAP 06/27/16 Melatonin (Melatonin) 5 Mg Tablet, 5 MG PO HS, TAB 06/27/16 Triamcinolone Acetonide (Triamcinolone Acetonide) 0.1% - 15 Gm Cream.gm., 1 APPLIC TOP DAILY, #1 TUB 06/27/16 Docusate Sodium* (Docusate Sodium*) 100 Mg Capsule, 100 MG PO Q12H, #60 CAP 06/27/16 Clopidogrel Bisulfate (Clopidogrel) 75 Mg Tablet, 75 MG PO DAILY, #30 TAB 06/27/16 Omeprazole* (Omeprazole*) 20 Mg Capsule., 20 MG PO DAILY, #30 CAP 06/27/16 Zolpidem Tartrate* (Zolpidem Tartrate* ER) 12.5 Mg Tab.mphase, 12.5 MG PO HS Y for INSOMNIA, #30 TAB.SA 06/27/16 Trazodone Hcl* (Trazodone Hcl*) 50 Mg Tablet, 50 MG PO QHS, #30 TAB 06/27/16 Pregabalin* (Lyrica*) 50 Mg Capsule, 50 MG PO BID, CAP 06/27/16 Ezetimibe* (Zetia*) 10 Mg Tablet, 10 MG PO HS, TAB 09/03/15 Follow-up Plan 1.Follow up with primary care physician in 1 week If you don't have one please let someone know, we can give you resources that may help you pick one. You may also call your insurance company to assign one to you. Review your medication list with your nurse before leaving and if you need new prescriptions please let your nurse know. I may have made changes to your home medications or given you new prescriptions, please let your primary doctor know as well. Stay compliant with your medications and report any side effects to your PCP or pharmacist. Return to the ER if you have any concerns and cannot reach your doctors or call your insurance company, they usually have a nurse that can help you. Primary Care Provider JAZMIN Anderson NP Sep 10, 2016 12:31
[2016-09-10 14:55] VITALS: BP 146/78; RESP 19
--- NOTE | 2016-09-10 15:31 | CONS ---
Date/Time of Note Date/Time of Note DATE: 09/10/16 TIME: 15:30 Assessment/Plan Assessment/Plan Chief Complaint/Hosp Course Alert, denies pain, looks comfortable, no fevers Temperature 97.8 pulse 80 respirations 20 blood pressure 146/78 saturation 95 room air Physical examination: Well-developed fragile elderly man who is alert in no distress. Head atraumatic normocephalic sclera nonicteric. Neck is supple chest rise symmetrical breath sounds clear, heart S1-S2 abdomen soft bowel sounds present extremities without cyanosis Assessment: 1. Systemic inflammatory response syndrome with fevers and leukocytosis on admission to. 2. Bilateral maxillary sinusitis, left worse than right 3. Coronary artery disease status post DC and PCI 4. History of Crohn's disease Plan: Patient is doing better, anticipate discharge on oral Levaquin for 7 more days. Problems: Consultation Date/Type/Reason Admit Date/Time Sep 08, 2016 at 23:41 Initial Consult Date Type of Consultation: id Exam/Review of Systems Vital Signs Vitals Vital Signs Date Time Temp Pulse Resp B/P Pulse Ox O2 Delivery O2 Flow Rate FiO2 09/10/16 14:55 97.8 81 19 146/78 93 09/09/16 07:02 Room Air 09/09/16 00:45 2.0 Intake and Output 09/09/16 09/09/16 09/10/16 15:00 23:00 07:00 Intake Total 930 ml 340 ml Output Total 1550 ml 500 ml Balance -620 ml -160 ml Results Result Diagram: 09/09/16 0512 09/09/16 0512 Results 24 hrs Laboratory Tests Test 09/10/16 11:20 Vancomycin Level Trough 11.4 Medications Medications Current Medications Ondansetron HCl (Zofran Inj) 4 mg Q6H PRN IV NAUSEA AND/OR VOMITING; Start at 01:00 Acetaminophen (Tylenol Tab) 650 mg Q6H PRN PO PAIN LEVEL 1-3 OR FEVER; Start at 01:00 Docusate Sodium (Colace) 100 mg Q12H PRN PO CONSTIPATION; Start 09/09/16 at 01: 00 Bisacodyl 5 mg 5 mg DAILY PRN PO CONSTIPATION; Start 09/09/16 at 01:00 Aztreonam 50 ml @ 100 mls/hr Q12 IVPB Last administered on 09/10/16 09:44; Admin Dose 100 MLS/HR; Start 09/09/16 at 09:00 Vancomycin HCl (Vancocin) 100 ml @ 100 mls/hr Q12H IVPB Last administered on 12:51; Admin Dose 100 MLS/HR; Start 09/09/16 at 12:00 Clopidogrel Bisulfate (plaVIX) 75 mg DAILY PO Last administered on 09/10/16 09 :07; Admin Dose 75 MG; Start 09/10/16 at 09:00 Docusate Sodium (Colace) 100 mg Q12 PO Last administered on 09/10/16 09:08; Admin Dose 100 MG; Start 09/09/16 at 13:00 Duloxetine HCl (Cymbalta) 60 mg DAILY PO Last administered on 09/10/16 09:07; Admin Dose 60 MG; Start 09/10/16 at 09:00 EZETIMIBE (Zetia) 10 mg HS PO Last administered on 09/09/16 21:16; Admin Dose 10 MG; Start 09/09/16 at 21:00 Pregabalin (Lyrica) 50 mg BID PO Last administered on 09/10/16 09:07; Admin Dose 50 MG; Start 09/09/16 at 21:00 Trazodone HCl (Desyrel) 50 mg QHS PO Last administered on 09/09/16 20:23; Admin Dose 50 MG; Start 09/09/16 at 21:00 Triamcinolone Acetonide (Kenalog 0.1% Cr) 1 applic DAILY TOP Last administered on 09/10/16 09:08; Admin Dose 1 APPLIC; Start 09/10/16 at 09:00 Miscellaneous Information (Pending Santyl Order For Wound Care) This patient manuel... PRN PRN XX WOUND CARE; Start 09/10/16 at 03:30 FLORA LAWS NP Sep 10, 2016 15:31
[2016-09-10 20:00] VITALS: BP 110/57; RESP 18
[2016-09-10] MEDS: traZODone 50 MG TAB PO SCH (20:10)
[2016-09-10] MEDS: EZETIMIBE 10 MG TAB PO SCH (20:10)
== END 2016-09-10 21:01 | disposition home or self-care (01) | DRG 640 ==
LOC: E/R 18:56 → MS4 23:41 → PP2 09-09 19:17
PROVIDERS: ADMIT Family Medicine; ATTEND Family Medicine
DX: E86.0 Dehydration (principal); G92 Toxic encephalopathy; E87.0 Hyperosmolality and hypernatremia; K50.90 Crohn's disease, unspecified, without complications; R65.10 Systemic inflammatory response syndrome (SIRS) of non-infectious origin without acute organ dysfunction; I25.2 Old myocardial infarction; I25.10 Atherosclerotic heart disease of native coronary artery without angina pectoris; Z95.5 Presence of coronary angioplasty implant and graft
CPT/HCPCS: 36415; 70450; 71010; 80053; 80202; 80306; 80307; 81003; 82140; 82550; 82553; 83605; 83735; 83880; 84436; 84479; 84484; 85025; 85610; 85730; 87040; 87086; 93005; 96374; 96375; 96376; C9113; J0696; J2060; J3370; J7030

== ENCOUNTER 2016-12-13 10:27 | Inpatient (IN) | payer MEDICARE, OTHER ==
[~2016-12-13] VITALS: Ht 172.7 cm; Wt 62.0 kg
[2016-12-13] MEDS ORDERED: SODIUM CHLORIDE 0.9% 1L BAG IV* STA (11:23)
--- NOTE | 2016-12-13 12:03 | ERD ---
ER Documentation Chief Complaint Chief Complaint MORE CONFUSED THAN USUAL SINCE 1 AM UNABLE TO STAND HX OF A DECUBITIS HPI 81-year-old male history of mild encephalopathy presents with caretakers from assisted living facility. The caretakers are concerned that the patient is more confused than usual around 1 AM. The patient is otherwise been well- appearing he does have a history of a chronic decubitus ulcer that is unchanged per the healthcare providers. No report of recent falls or injuries. The patient has no complaints and denies any chest pain or shortness of breath though slightly limited secondary to patient's dementia and altered mental status. There are concern for possible UTI as the patient has had a UTI in the past. ROS All systems reviewed and are negative except as per history of present illness. Medications Home Meds Reported Medications Ibuprofen* (Advil*) 200 Mg Capsule, 200 MG PO Q6H Y for PAIN, CAP 12/13/16 Polyethylene Glycol* (Miralax*) 17 Gm Powd.pack, 17 GM PO DAILY, #30 PACKET 12/13/16 Duloxetine Hcl* (Duloxetine Hcl*) 60 Mg Capsule.dr, 60 MG PO DAILY, #30 CAP 12/13/16 Melatonin (Melatonin) 5 Mg Tablet, 5 MG PO HS, TAB 06/27/16 Triamcinolone Acetonide (Triamcinolone Acetonide) 0.1% - 15 Gm Cream.gm., 1 APPLIC TOP DAILY, #1 TUB 06/27/16 Omeprazole* (Omeprazole*) 20 Mg Capsule.dr, 20 MG PO DAILY, #30 CAP 06/27/16 Trazodone Hcl* (Trazodone Hcl*) 50 Mg Tablet, 50 MG PO QHS, #30 TAB 06/27/16 Discontinued Reported Medications Duloxetine Hcl* (Duloxetine Hcl*) 60 Mg Capsule.dr, 60 MG PO DAILY, #30 CAP 06/27/16 Docusate Sodium* (Docusate Sodium*) 100 Mg Capsule, 100 MG PO Q12H, #60 CAP 06/27/16 Clopidogrel Bisulfate (Clopidogrel) 75 Mg Tablet, 75 MG PO DAILY, #30 TAB 06/27/16 Zolpidem Tartrate* (Zolpidem Tartrate* ER) 12.5 Mg Tab.mphase, 12.5 MG PO HS Y for INSOMNIA, #30 TAB.SA 06/27/16 Pregabalin* (Lyrica*) 50 Mg Capsule, 50 MG PO BID, CAP 06/27/16 Ezetimibe* (Zetia*) 10 Mg Tablet, 10 MG PO HS, TAB 09/03/15 Discontinued Scripts Pantoprazole* (Pantoprazole*) 40 Mg Tablet.dr, 40 MG PO AC BREAKFAST for 30 Days , TAB 1 Refill Prov:ORI HALEY MD 06/30/16 Allergies Allergies: Coded Allergies: Penicillins (Verified Allergy, Unknown, 12/13/16) rash PMhx/Soc History of Surgery: Yes (ANGIOPLASTY) Anesthesia Reaction: No Hx Neurological Disorder: Yes (NEROPATHY.) Hx Respiratory Disorders: No Hx Cardiac Disorders: Yes (CAD.) Hx Psychiatric Problems: No Hx Miscellaneous Medical Probl: No Hx Alcohol Use: No Hx Substance Use: No Hx Tobacco Use: Yes FmHx Family History: No diabetes Physical Exam Vitals Vital Signs Date Time Temp Pulse Resp B/P Pulse Ox O2 Delivery O2 Flow Rate FiO2 12/13/16 11:15 Nasal Cannula 2 12/13/16 10:46 99.6 100 18 128/73 88 Physical Exam General: Well developed, well nourished, no acute distress Head: Normocephalic, atraumatic. Eyes: Pupils equally reactive, EOM intact ENT: Dry mucous membranes Neck: Supple, no lymphadenopathy Respiratory: Lungs clear bilaterally, no distress Cardiovascular: RRR, no murmurs, rubs, or gallops Abdominal: Soft, non-tender, non-distended, no peritoneal signs : Deferred MSK: No edema, no unilateral swelling, 5/5 strength Neurologic: Alert and oriented to person, appears to be slightly different from baseline per healthcare providers, moving all extremities, normal speech, no focal weakness, no cerebellar signs Skin: No rash Psych: Normal mood Result Diagram: 12/13/16 1115 12/13/16 1123 Results 24 hrs Laboratory Tests Test 12/13/16 11:15 12/13/16 11:23 12/13/16 11:31 White Blood Count 21.710^3/ul Red Blood Count 3.8210^6/ul Hemoglobin 10.9g/dl Hematocrit 34.5% Mean Corpuscular Volume 90.3fl Mean Corpuscular Hemoglobin 28.5pg Mean Corpuscular Hemoglobin Concent 31.6g/dl Red Cell Distribution Width 15.3% Platelet Count 89048^3/UL Mean Platelet Volume 10.1fl Neutrophils % 92.7% Lymphocytes % 4.0% Monocytes % 2.7% Eosinophils % 0.0% Basophils % 0.1% Nucleated Red Blood Cells % 0.0/100WBC Neutrophils # 20.110^3/ul Lymphocytes # 0.910^3/ul Monocytes # 0.610^3/ul Eosinophils # 0.010^3/ul Basophils # 0.010^3/ul Nucleated Red Blood Cells # 0.010^3/ul Prothrombin Time 13.2Sec Prothrombin Time Ratio 1.0 INR International Normalized Ratio 1.00 Activated Partial Thromboplast Time 31.9Sec Urine Color KERRIE Urine Clarity CLOUDY Urine pH 5.0 Urine Specific [place] 1.021 Urine Ketones NEGATIVEmg/dL Urine Nitrite NEGATIVEmg/dL Urine Bilirubin 1+mg/dL Urine Urobilinogen 2+mg/dL Urine Leukocyte Esterase 3+Katy/ul Urine Microscopic RBC 4/HPF Urine Microscopic WBC > 182/HPF Urine Bacteria FEW/HPF Urine Mucus FEW/HPF Urine Hemoglobin NEGATIVEmg/dL Urine Glucose NEGATIVEmg/dL Urine Total Protein 1+mg/dl Lactic Acid Level 4.4mmol/L Sodium Level 142mmol/L Potassium Level 4.5mmol/L Chloride Level 103mmol/L Carbon Dioxide Level 24mmol/L Anion Gap 20 Blood Urea Nitrogen 53mg/dl Creatinine 1.45mg/dl Glucose Level 190mg/dl Calcium Level 8.8mg/dl Total Bilirubin 0.3mg/dl Direct Bilirubin 0.00mg/dl Indirect Bilirubin 0.3mg/dl Aspartate Amino Transf (AST/SGOT) 33IU/L Alanine Aminotransferase (ALT/SGPT) 33IU/L Alkaline Phosphatase 90IU/L Troponin I < 0.012ng/ml Total Protein 7.8g/dl Albumin 3.6g/dl Globulin 4.20g/dl Albumin/Globulin Ratio 0.85 Bedside Glucose 195mg/dL Current Medications Medications (Trade) Dose Ordered Sig/Renita Route PRN Reason Start Time Stop Time Status Last Admin Dose Admin Sodium Chloride 2170 ml 2,170 ml BOLUS OVER 2 HOURS STAT IV* 12/13/16 11:23 12/13/16 11:24 DC 12/13/16 11:54 Vancomycin HCl 250 ml @ 125 mls/hr ONCE ONCE IVPB 10/19/17 14:00 12/13/16 15:59 Aztreonam (Azactam 1gm/NS (Pmx)) 50 ml @ 100 mls/hr ONCE ONCE IVPB 12/13/16 14:00 12/13/16 14:29 Procedures/MDM EKG, MONITORS, & DIAGNOSTIC IMAGING: EKG: I reviewed and interpreted a 12-lead EKG. Rhythm: Normal sinus rhythm Ectopy: None Intervals: No abnormalities ST segments: No elevations or depressions T waves: No contiguous inversions Chest x-ray: I reviewed and interpreted a 1 view of the chest Mediastinum: No enlargement Cardiac silhouette: No cardiomegaly Airspace: Right-sided infiltrates Bones: No evidence of fracture CT brain: No evidence of intracranial process per radiologist LAB INTERPRETATION: Significant leukocytosis and lactic acidosis noted. MEDICAL DECISION MAKING: The patient presents with acute on chronic encephalopathy. The patient has borderline blood pressure in the 96 range. He appears to be dehydrated. A broad differential exists including electrolyte disturbance, sepsis, urinary tract infection, intracranial hemorrhage or stroke. Consider ACS as well. The patient will require broad workup, sepsis screening, infectious rule out and likely inpatient hospitalization. I attempted to contact the patient's primary care physician Dr. Cherry. The caretakers report that the patient has very consistently reported that he does not want intubation or resuscitation however they do not have documentation. It appears that it is in the process of being filled out. The patient cannot confirm this given his mental status at this point. I will attempt to confirm with the patient's primary care physician Dr. Cherry. ER COURSE: The patient was given a 30 cc/kg bolus of saline. Blood cultures taken. The patient was found to have significant lactic acidosis and Actiq acidosis. The patient has 2 sources of potential infection including pneumonia and urinary tract infection. For this reason he meets criteria of severe sepsis and potentially septic shock. I was able to have a conversation with Dr. Cherry. He confirms that the patient' s wishes have been consistent with DNR, DNI and comfort measures and limited interventions. He has verbalized that he does not want central line, intubation or chest compressions. While we do not have this documentation I have 2 different care providers confirming this. No family is readily available at this time. For this reason I will continue with the patient's goals of care including fluid resuscitation and antibiotics but avoid central line, pressors, intubation based on the goals of care described. The patient was given vancomycin and Azactam after blood cultures as documented above. DISPOSITION PLAN: Telemetry admission for management of severe sepsis. CONSULTATION: Accepting care team and consultations: I discussed the current laboratory data, diagnostic imaging and emergency care provided. Admitting team: Dr. Cherry would like the patient admitted to Dr. Feliz who has been paged. Admitting team indication: Insurance directed Sepsis Documentation: Patient's infectious symptoms have not stabilized and the patient is at risk of rapid decompensation. The patient will be admitted for careful hydration, antibiotic therapy, and infectious source control. SEVERE SEPSIS CRITERIA: Infectious source: Pneumonia, urinary tract infection End organ damage indicated by: [Lactate > 2.0 mmol/L SEPSIS MANAGEMENT Time of recognition of severe sepsis/septic shock: Patient met diagnostic criteria at 1 PM when urinalysis and source was found 3 HOUR BUNDLE Blood cultures x 2 before broad-spectrum antibiotics: Yes 30 ml/kg NS bolus pending completion Initial lactate 4.4 Repeat lactate pending repeat SEPTIC SHOCK ASSESSMENT: Yes lactic acid > 4.0 No persistent hypotension (SBP < 90 or 40 mmHg drop, MAP < 65) despite 30 mL/kg IV fluid bolus VOLUME REASSESSMENT FOR SEPTIC SHOCK: Reevaluation Time: 1:55 PM Temperature of 98.1 pulse rate of 78 respiratory rate 18 pulse ox of 97%, blood pressure 99/45 Heart Regular rate & rhythm Lungs No crackles Skin Warm & dry Cap Refill Less than 2 seconds Peripheral pulses Radially present PERSISTENT HYPOTENSION TREATMENT: Comfort care yes stone goals of care as described above Central line Not Required Vasopressor started Not required I considered further perfusion assessment with CVP measurement, SCVO2, bedside ultrasound volume assessment, passive leg raise, trial of further fluid bolus. And proceeded with 30 ml/kg fluid bolus of NSS, broad spectrum antbiotics, and admission. CRITICAL CARE Critical care time 35 minutes Emergent fluid management while maintaining close respiratory support. Provision of immediate and broad-spectrum antibiotic therapy. Simultaneous assessment for possible sources in order to direct targeted therapy. Consideration for invasive and chemical support to prevent cardiopulmonary collapse. Critical care time is independent of procedures performed. Departure Diagnosis: Primary Impression: Septic shock Additional Impressions: Urinary tract infection Urinary tract infection type: acute cystitis Hematuria presence: without hematuria Qualified Code: N30.00 - Acute cystitis without hematuria Healthcare-associated pneumonia Encephalopathy chronic Acute encephalopathy Acute renal insufficiency DNR (do not resuscitate) DNI (do not intubate) Condition: NAKUL Henry MD Dec 13, 2016 12:03
--- NOTE | 2016-12-13 12:10 | RADRPT ---
PROCEDURE: XR Chest. CLINICAL INDICATION: Sepsis . Pneumonia. TECHNIQUE: Single frontal chest x-ray. COMPARISON: 09/08/2016 FINDINGS: There are new pulmonary infiltrates throughout the right lung. The left lung is clear. .. The cardi omediastinal silhouette is unremarkable. The osseous structures are intact. IMPRESSION: New right pulmonary infiltrates or pneumonia.. RPTAT: QQ .Diaz Kumar MD, MD Date Time Electronically viewed and signed by .Diaz Kumar MD, on 12/13/2016 12:09 .L/
[2016-12-13 12:12] LABS: ALANINE AMINOTRANSFERASE 33 IU/L (13-69); ALBUMIN 3.6 g/dl (3.3-4.9); ALBUMIN/GLOBULIN RATIO 0.85; ALKALINE PHOSPHATASE 90 IU/L (42-121); ANION GAP 20 (8-16); ASPARTATE AMINO TRANSFERASE 33 IU/L (15-46); BILIRUBIN,INDIRECT 0.3 mg/dl (0-1.1); BILIRUBIN,TOTAL 0.3 mg/dl (0.2-1.3); BLOOD UREA NITROGEN 53 mg/dl (7-20); CALCIUM 8.8 mg/dl (8.4-10.2); CARBON DIOXIDE 24 mmol/L (21-31); CHLORIDE 103 mmol/L (97-110); CREATININE 1.45 mg/dl (0.61-1.24); GLUCOSE 190 mg/dl (70-220); POTASSIUM 4.5 mmol/L (3.5-5.1); SODIUM 142 mmol/L (135-144); TOTAL PROTEIN 7.8 g/dl (6.1-8.1)
[2016-12-13 12:13] LABS: ABNORMAL IP MESSAGE 1; BASOPHILS % 0.1 % (0.0-2.0); HEMATOCRIT 34.5 % (42.0-52.0); HEMOGLOBIN 10.9 g/dl (14.0-18.0); LYMPHOCYTES # 0.9 10^3/ul (0.8-2.9); MEAN CORPUSCULAR HEMOGLOBIN 28.5 pg (29.0-33.0); MEAN CORPUSCULAR HGB CONC 31.6 g/dl (32.0-37.0); MEAN CORPUSCULAR VOLUME 90.3 fl (82.0-101.0); MEAN PLATELET VOLUME 10.1 fl (7.4-10.4); MONOCYTE # 0.6 10^3/ul (0.3-0.9); MONOCYTES % 2.7 % (0.0-11.0); NEUTROPHIL # 20.1 10^3/ul (1.6-7.5); PLATELET COUNT 353 10^3/UL (140-415); POSITIVE DIFF @See below; RED BLOOD COUNT 3.82 10^6/ul (4.70-6.10); RED CELL DISTRIBUTION WIDTH 15.3 % (11.5-14.5); WHITE BLOOD COUNT 21.7 10^3/ul (4.8-10.8)
[2016-12-13 12:14] LABS: PROTIME 13.2 Sec (12.2-14.2)
[2016-12-13 12:15] LABS: PARTIAL THROMBOPLASTIN TIME 31.9 Sec (25.0-35.0)
[2016-12-13 12:17] LABS: NEUTROPHILS % 92.7 % (39.0-77.0)
--- NOTE | 2016-12-13 12:26 | RADRPT ---
PROCEDURE: CT Brain without contrast. CLINICAL INDICATION: Altered mental status. TECHNIQUE: A CT of the brain was performed on multidetector high-resolution CT scanner utilizing a xial sections from the skull base through the vertex without contrast. The scan was reviewed in sof t tissue brain and high frequency resolution bone algorithm windows. Images were reviewed on a high -resolution PACS workstation. One or more the following does reduction techniques were utilized: Aut omated exposure control, adjustment of the mA/ or kV according to patient's size, or use of iterativ e reconstruction technique. The exam CTDI = to 45.01, 43.27 x 2 mGy and the DLP = 720.23 mGy-cm. COMPARISON: Brain CT 09/08/2016. FINDINGS: The ventricles and sulci are mildly prominent indicative of volume loss. There is no intracranial h emorrhage, mass effect or midline shift. No abnormal intra-axial or extra-axial fluid collections a re seen. The cruz/white matter differentiation is preserved. There are moderate foci of hypoattenuation in the white matter, which are nonspecific in etiology bu t likely reflect chronic small vessel ischemic changes. There are mild intracranial vascular calcif ications consistent with atherosclerosis. The visualized paranasal sinuses demonstrate partially vis ualized partial opacification of right maxillary sinus with mucoperiosteal thickening and debris. Th e right sphenoid sinus is hypoplastic. Mastoid air cells are essentially clear. There is thinning of bilateral lens indicative of prior lens replacement. IMPRESSION: 1. No acute intracranial hemorrhage, transcortical infarction or mass effect. 2. Mild intracranial atherosclerosis and moderate chronic small vessel ischemic changes. 3. Mild generalized cerebral and cerebellar volume loss. 4. Partial opacification of right maxillary sinus with mucoperiosteal thickening and debris. The ri ght sphenoid sinus is hypoplastic. RPTAT: UU .Rikki Chao MD, MD Date Time Electronically viewed and signed by .Rikki Chao MD, MD on 12/13/2016 12:25 .N/
[2016-12-13] MEDS ORDERED: DULO60CA59 PO (12:28)
[2016-12-13 12:29] LABS: TROPONIN-I < 0.012 ng/ml (0.00-0.12)
[2016-12-13] MEDS ORDERED: POLY17PO6 PO (12:29)
[2016-12-13] MEDS ORDERED: IBUP200C11 PO (12:31)
[2016-12-13 13:11] LABS: ADD UMIC YES; UR ASCORBIC ACID 20 mg/dL (NEGATIVE); UR BACTERIA FEW /HPF (NONE SEEN); UR BILIRUBIN (Dip) 1+ mg/dL (NEGATIVE); UR BLOOD (Dip) NEGATIVE (NEGATIVE); UR CLARITY CLOUDY (CLEAR); UR COLOR AMBER (YELLOW); UR GLUCOSE (Dip) NEGATIVE (NEGATIVE); UR KETONES (Dip) NEGATIVE (NEGATIVE); UR LEUKOCYTE ESTERASE (Dip) 3+ Leu/ul (NEGATIVE); UR MUCUS FEW /HPF (NONE SEEN); UR NITRITE (Dip) NEGATIVE (NEGATIVE); UR RBC 4 /HPF (0-5); UR SPECIFIC GRAVITY (Dip) 1.021 (1.003-1.030); UR TOTAL PROTEIN (Dip) 1+ mg/dl (NEGATIVE); UR UROBILINOGEN (Dip) 2+ mg/dL (NEGATIVE)
[2016-12-13] MEDS ORDERED: SOD CHLORIDE 0.9% 1,000 ML IV STA (13:52)
[2016-12-13] MEDS ORDERED: VANCOMYCIN 1 GM (PMX) 250 ML IVPB ONE (14:00)
[2016-12-13] MEDS ORDERED: AZTREONAM 1 GM/NS (PMX) 50 ML IVPB ONE (14:00)
[2016-12-13] MEDS ORDERED: VANCOMYCIN IV PER PHARMACY XX SCH (16:00)
[2016-12-13 16:11] VITALS: TEMP 97.9
--- NOTE | 2016-12-13 16:39 | HP ---
DATE OF ADMISSION: 09/08/2016 CHIEF COMPLAINT: Pneumonia, sepsis. HISTORY OF PRESENT ILLNESS: This is an 81-year-old male with a past medical history of coronary art magaly disease, history of peripheral neuropathy, history of Crohn's disease, hiatal hernia, history of previous aspiration pneumonia, chronic back pain, history of C. diff., who presented to [facility] emergency room from an assisted living facility due to altered mental status. The patient was noted by the caregiver to be more confused than normal. The patient also noted to have a chroni c decubitus ulcer which has been stable, per caregiver. The patient has underlying dementia, but wa s noted to be more altered than his previous baseline state. Upon arrival to the emergency room, th e patient had laboratory data drawn, which showed a white count of 21,000, a BUN of 53, creatinine 1 .45, lactic acid 4.4. Chest x-ray showed a new right pulmonary infiltrate or pneumonia. A CT scan of the brain showed no acute pathology, generalized volume loss and opacification of right maxillary sinus. In the emergency room, the patient was treated with sepsis protocol, was given IV fluids, I V antibiotics. Upon my evaluation of the patient at this time, he is currently lethargic, able to answer simple que stions. Denies any recent episodes of hemoptysis, hematemesis, hematochezia. PAST MEDICAL HISTORY: As stated above, history of coronary artery disease, history of neuropathy, h istory of Crohn's disease, history of hiatal hernia. PAST SURGICAL HISTORY: History of cardiac catheterization. The patient also has had abdominal surg magaly. FAMILY HISTORY: noncontributory. SOCIAL HISTORY: Lives at assisted living facility. ALLERGIES: Have been reviewed. THE PATIENT IS ALLERGIC TO PENICILLIN. MEDICATIONS: Have been reviewed and reconciled. REVIEW OF SYSTEMS: A 14-point review of systems was conducted. Pertinent positives stated in HPI, otherwise negative. PHYSICAL EXAMINATION: VITALS: Blood pressure is 120/67, respirations 18, pulse 76, temperature 98.7. HEENT: Head is normocephalic. NECK: Supple. HEART: Tachycardic. LUNGS: Show diminished breath sounds at the bases. Positive rhonchi. ABDOMEN: Soft, nontender to palpation. No rebound or guarding. EXTREMITIES: Negative for clubbing, cyanosis, no edema. DERMATOLOGIC: No rashes. MUSCULOSKELETAL: No joint effusions. NEUROLOGIC: Limited exam due to lack of patient cooperation, but no obvious focal deficits. LABORATORY DATA: Shows a white count of 21.7, hemoglobin 10.9, hematocrit 34.5, platelet count 353. Sodium 142, potassium 4.5, chloride 103, BUN 53, creatinine 1.45. The patient has a lactic acid o f 2.6. IMAGING: Chest x-ray as stated in HPI. ASSESSMENT AND PLAN: This is an 81-year-old male who presents with: 1. Severe sepsis, etiology is secondary to pneumonia and possible urinary tract infection. The pat ient's urinalysis shows pyuria greater than 182 WBCs, and chest x-ray shows evidence of pulmonary in filtrate. Plan at this point is to continue current medical management, continue IV fluids. We heriberto l continue IV antibiotics. We will place an infectious disease consult for evaluation. We will fol low up blood cultures, urine cultures. We will monitor serial lactic acid levels. 2. Acute respiratory failure, etiology is secondary to pneumonia. Plan is to continue current emperatriz tment plan. We will give nebulizer therapy. Continue supplemental oxygen. Continue antibiotic the rapy. We will place a pulmonary consult for evaluation. 3. Acute encephalopathy on dementia, etiology is toxic metabolic. We will continue to monitor. Co ntinue to treat underlying sepsis. 4. Nonoliguric acute kidney injury on top of chronic kidney disease with unknown baseline creatinin e. Etiology is likely secondary to hemodynamics, sepsis. Plan is to continue current treatment amy n. Continue gentle IV hydration. Continue underlying IV antibiotics. Would otherwise continue sup portive care, renally dose all meds, avoid nephrotoxins. 5. Lactic acidosis secondary to sepsis. Continue current treatment plan. Continue to monitor seri al lactic acid levels. 6. Anemia. Monitor hemoglobin and hematocrit levels. 7. Mineral bone disease. We will monitor calcium and phosphorus levels. 8. Decubitus wound. Continue wound care. 9. History of coronary artery disease, status post stent placement. Continue medical management. Continue Plavix. 10. Neuropathy. Continue Lyrica. 11. Depression. Continue with duloxetine. 12. Gastrointestinal and DVT prophylaxis. Continue proton pump inhibitor and Lovenox. 13. History of Crohn's disease. We will continue to monitor. Please note I spent up to 25 minutes of face to face time with the patient, discussing code status. The patient is DNR/DNI. Dictated By: LENNIE ECHOLS DO NR/NTS Conf#: [id number] DID#: [id number] CC: JULIAN BARON MD;*EndCC*
[2016-12-13] MEDS: SOD CHLORIDE 0.9% 1,000 ML IV SCH (16:56)
[2016-12-13] MEDS ORDERED: VANCOMYCIN 1 GM in NS 250 ML IVPB SCH ×2 (17:00→21:00)
[2016-12-13 17:09] VITALS: BP 144/57; PULSE 45; RESP 20
[2016-12-13 17:17] VITALS: PULSE 79; Ht 172.7 cm; Wt 62.0 kg
[2016-12-13] MEDS ORDERED: PENDING SANTYL ORDER FOR WOUND CARE XX PRN (17:30)
--- NOTE | 2016-12-13 17:54 | CONS ---
DATE OF ADMISSION: 12/13/2016 DATE OF CONSULTATION: 12/13/2016 TYPE OF CONSULTATION: Infectious Disease. REASON FOR CONSULTATION: Antibiotic management. HISTORY OF PRESENT ILLNESS: Diaz Cortes is an 81-year-old male who was brought to the emergency ro om more confused than usual. His past problems include: 1. Mild encephalopathy. 2. Chronic decubitus ulcer that is unchanged according to the healthcare providers. 3. Possible urinary tract infection with history of urinary tract infections in the past. 4. ALLERGY TO PENICILLIN, HE DEVELOPS A RASH. 5. Status post angioplasty. 6. History of neuropathy. 7. Coronary artery disease. On admission, the patient's white count was 21.7, H and H of 10.9 and 34.5, platelet count 353,000. BUN and creatinine of 53/1.45. His glucose random was 190. Urinalysis was 3+ leukocyte esterase, greater than 182 white cells per high powered field. The patient was therefore started on vancomyci n and aztreonam. Chest x-ray showed no enlargement of the heart. He also had a right-sided infiltr ate. CT scan showed no evidence of intracranial process. His lactic acid was 4.4. PAST MEDICAL HISTORY: As outlined. FAMILY HISTORY: Noncontributory. SOCIAL HISTORY: Does not smoke, drink or abuse drugs. ALLERGIES: ALLERGY TO PENICILLIN. NONE TO SULFA OR FOODS. MEDICATIONS: Per chart. REVIEW OF SYSTEMS: Noncontributory except that he did smoke in the past. PHYSICAL EXAMINATION: GENERAL: The patient is a well-developed, well-nourished male who is awake, confused, in no acute d istress. VITAL SIGNS: Stable. He is afebrile. SKIN: Without generalized rash. HEENT: Within normal limits. NECK: Supple. LYMPH NODES: None palpable. CHEST: Decreased breath sounds at the bases. HEART: Without murmur or gallop. ABDOMEN: Soft, nontender, nondistended, without organosplenomegaly or masses. EXTREMITIES: Without cyanosis, clubbing, or edema. RECTAL AND GENITAL EXAMS: Deferred. NEUROLOGICAL EVALUATION: No focal neurological abnormalities. IMPRESSION AND PLAN: The patient presents now with a urinary tract infection. He is on vancomycin and aztreonam. He has had blood cultures and urine cultures ordered, which is appropriate. We will continue to observe. I will dictate my findings to the hospitalist. Dictated By: DANIEL DOMINGO MD, JD/SONIA Conf#: [id number] DID#: [id number]
[2016-12-13] MEDS: ALBUTEROL/IPRATROPIUM (NEB) 3 ML AMP HHN SCH (19:54)
[2016-12-13 20:00] VITALS: BP 110/59; PULSE 80; RESP 19
[2016-12-13] MEDS ORDERED: NON-FORMULARY/PATIENT OWN MED (Melatonin 5 MG) PO SCH (21:00)
[2016-12-13] MEDS: traZODone 50 MG TAB PO SCH (21:26)
[2016-12-13] MEDS: AZTREONAM 1 GM in SOD CHLORIDE 0.9% 100 ML IVPB SCH (23:46)
[2016-12-14] VITALS (13 sets, daily range): BP systolic 82–118; BP diastolic 51–69; PULSE 62–85; RESP 18–20
[2016-12-14] MEDS: ALBUTEROL/IPRATROPIUM (NEB) 3 ML AMP HHN SCH ×4 (01:36→20:06)
[2016-12-14] MEDS ORDERED: VANCOMYCIN 750 MG in SOD CHLORIDE 0.9% 150 ML IVPB SCH (03:00)
[2016-12-14 06:18] LABS: BASOPHILS % 0.2 % (0.0-2.0); EOSINOPHILS # 0.3 10^3/ul (0.0-0.5); EOSINOPHILS % 1.4 % (0.0-7.0); HEMATOCRIT 27.7 % (42.0-52.0); HEMOGLOBIN 8.5 g/dl (14.0-18.0); LYMPHOCYTES # 1.4 10^3/ul (0.8-2.9); LYMPHOCYTES % 7.9 % (15.0-51.0); MEAN CORPUSCULAR HEMOGLOBIN 27.9 pg (29.0-33.0); MEAN CORPUSCULAR HGB CONC 30.7 g/dl (32.0-37.0); MEAN CORPUSCULAR VOLUME 90.8 fl (82.0-101.0); MEAN PLATELET VOLUME 9.9 fl (7.4-10.4); MONOCYTE # 0.5 10^3/ul (0.3-0.9); NEUTROPHIL # 15.2 10^3/ul (1.6-7.5); PLATELET COUNT 279 10^3/UL (140-415); RED BLOOD COUNT 3.05 10^6/ul (4.70-6.10); RED CELL DISTRIBUTION WIDTH 15.3 % (11.5-14.5); WHITE BLOOD COUNT 17.5 10^3/ul (4.8-10.8)
[2016-12-14] MEDS: PANTOPRAZOLE (EC) 40 MG TAB PO SCH (06:28)
[2016-12-14 07:19] LABS: CREATININE 0.99 mg/dl (0.61-1.24); PHOSPHORUS 3.3 mg/dl (2.5-4.9)
[2016-12-14] MEDS: DULOXETINE 30 MG CAP DR PO SCH (10:14)
[2016-12-14] MEDS: POLYETHYLENE GLYCOL 17 GM PACKET PO SCH (10:14)
--- NOTE | 2016-12-14 10:17 | PN ---
DATE: 12/14/2016 SUBJECTIVE: The patient is clinically stable overnight, no acute events noted. No hemoptysis, maria antonia temesis, hematochezia. OBJECTIVE: VITAL SIGNS: Blood pressure is 118/55, respirations 20, pulse 79, temperature 97.4. HEENT: Head is normocephalic. NECK: Supple. HEART: Regular rate. LUNGS: Show diminished breath sounds at base. ABDOMEN: Soft, nontender to palpation without rebound or guarding. EXTREMITIES: Negative for clubbing, cyanosis, or edema. DERMATOLOGIC: No rashes. MUSCULOSKELETAL: No joint effusions. NEUROLOGIC: No change in exam. MEDICATIONS: The patient's medications have been reviewed. LABORATORY DATA: Shows white count is 17.5, hemoglobin 8.5, hematocrit 27.7, platelet count 279. S odium 141, potassium 4.0, BUN 76, creatinine 0.99, calcium 8.0. Lactic acid 1.0. ASSESSMENT AND PLAN: This is an 81-year-old male who presents with: 1. Severe sepsis, etiology secondary to urinary tract infection and possible pneumonia. The patien t is clinically improving with IV antibiotics. Continue current treatment plan. Follow up cultures . Follow up with infectious disease for recommendations. 2. Acute respiratory failure secondary to pneumonia. The patient is clinically improving. Continu e nebulizers. Continue current treatment plan. We will follow up with Pulmonary for any further re commendations. 3. Arrhythmia. The patient is currently in sinus rhythm. Continue to monitor. Cardiology consult is placed. 4. Nonoliguric acute kidney injury with unknown baseline creatinine. Etiology is secondary to hemo dynamics, sepsis. Renal function has been improving with gentle IV hydration. Will continue. 5. History of coronary artery disease, status post percutaneous coronary intervention. Continue cu rrent medical management. 6. Neuropathy. Continue Lyrica. 7. Dyslipidemia. Continue statin therapy. 8. Depression, anxiety. Continue duloxetine. 9. Anemia. The patient had a drop in hemoglobin. This may be dilutional. Monitor hemoglobin and hematocrit levels closely. 10. Lactic acidosis secondary to sepsis, resolved. 11. Gastrointestinal and deep venous thrombosis prophylaxis. Continue proton pump inhibitor and se quential leg squeezers. Dictated By: LENNIE ECHEVERRIA/NTS Conf#: [id number] DID#: [id number]
[2016-12-14] MEDS: TRIAMCINOLONE ACET 0.1% 15 GM CR TOP SCH (11:04)
[2016-12-14] MEDS: AZTREONAM 1 GM in SOD CHLORIDE 0.9% 100 ML IVPB SCH (11:05)
--- NOTE | 2016-12-14 11:30 | CONS ---
Date/Time of Note Date/Time of Note DATE: 12/14/16 TIME: 11:26 Assessment/Plan Assessment/Plan Additional Assessment/Plan Chest x-ray showing right-sided pneumonia. Assessment and recommendations; 1. Patient admitted with pneumonia with interval clinical improvement. 2. Prior history of C. difficile colitis, history of prior aspiration pneumonia and Crohn's disease. They all appear fairly stable at this point. Continue current treatment. Obtain follow-up chest x-ray in 48 hours. Consultation Date/Type/Reason Admit Date/Time Dec 13, 2016 at 14:25 Date of Consultation: Dec 14, 2016 Type of Consultation: Pulmonary Reason for Consultation Pulmonary consultation requested for evaluation of pneumonia. History of presenting illness; patient is a very pleasant 81-year-old white male who was admitted with complaints of being short of breath for the last few days. Upon evaluation a chest x-ray was done which is showing extensive right- sided pneumonia. Patient has been started on appropriate antibiotic regimen and according to the patient he is already feeling much better. Complains of very scant cough without any sputum production. Denies any chest pain, fever wheezing. Patient denies any recent nausea or vomiting. Past medical history; 1. Patient with a history of Crohn's disease. 2. History of underlying coronary artery disease. 3. History of prior aspiration pneumonia. 4. History of C. difficile colitis. Medications; reviewed. Allergies; penicillin. Social history; patient has a remote history of very mild smoking. Family history; patient is a . He has 3 children. 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 Review of systems; denies any headache, seizures, visual changes. Any sinus symptoms. Any dysphagia. Denies any chest pain, wheezing. Complains of scant cough. Denies any sputum production hemoptysis. Any abdominal pain, nausea vomiting. Any melena or hematochezia. Any orthopnea. Patient has fair appetite. Complains of chronic skin bruising. General exam; elderly male, awake and alert. Currently in no distress. Past Surgical History Past Surgical Hx: angioplasty Social History Smoking Status: Never smoker Exam/Review of Systems Vital Signs Vitals Vital Signs Date Time Temp Pulse Resp B/P Pulse Ox O2 Delivery O2 Flow Rate FiO2 12/14/16 11:23 98.0 87 20 114/60 94 12/14/16 10:40 2.0 12/14/16 08:27 Nasal Cannula Intake and Output 12/13/16 12/13/16 12/14/16 15:00 23:00 07:00 Intake Total 2220 ml 1150 ml Output Total 200 ml Balance 2220 ml 950 ml Exam HEENT exam; supple neck, no JVD. No lymphadenopathy. Midline trachea. No thyromegaly. Patient has bilateral intraocular lens implants. Has fair dentition. Chest exam; diminished but clear breath sounds. S1-S2 audible, no murmurs. Regular rhythm. Abdomen exam; soft, nondistended. No organomegaly. Bowel sounds audible. Extremity exam; no peripheral edema. Patient does have ecchymosis involving all 4 extremities. 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 Results Result Diagram: 12/14/16 0547 12/14/16 0547 Results 24 hrs Laboratory Tests Test 12/13/16 11:31 12/13/16 13:20 12/13/16 15:35 12/14/16 05:47 Bedside Glucose 195 Lactic Acid Level 2.6 *H 1.0 White Blood Count 17.5 H Red Blood Count 3.05 #L Hemoglobin 8.5 #L Hematocrit 27.7 L Mean Corpuscular Volume 90.8 Mean Corpuscular Hemoglobin 27.9 L Mean Corpuscular Hemoglobin Concent 30.7 L Red Cell Distribution Width 15.3 H Platelet Count 279 # Mean Platelet Volume 9.9 Neutrophils % 87.0 H Lymphocytes % 7.9 L Monocytes % 3.0 Eosinophils % 1.4 Basophils % 0.2 Nucleated Red Blood Cells % 0.0 Neutrophils # 15.2 H Lymphocytes # 1.4 Monocytes # 0.5 Eosinophils # 0.3 Basophils # 0.0 Nucleated Red Blood Cells # 0.0 Sodium Level 141 Potassium Level 4.0 Chloride Level 110 Carbon Dioxide Level 27 Anion Gap 8 # Blood Urea Nitrogen 46 H Creatinine 0.99 Glucose Level 100 # Calcium Level 8.0 L Phosphorus Level 3.3 Magnesium Level 2.0 Medications Medications Current Medications Duloxetine HCl (Cymbalta) 60 mg DAILY PO Last administered on 12/14/16 10:14 ; Admin Dose 60 MG; Start 12/14/16 at 09:00 Polyethylene Glycol (Miralax) 17 gm DAILY PO Last administered on 12/14/16 10 :14; Admin Dose 17 GM; Start 12/14/16 at 09:00 Trazodone HCl (Desyrel) 50 mg QHS PO Last administered on 12/13/16 21:26; Admin Dose 50 MG; Start 12/13/16 at 21:00 Triamcinolone Acetonide (Kenalog 0.1% Cr) 1 applic DAILY TOP Last administered on 12/14/16 11:04; Admin Dose 1 APPLIC; Start 12/14/16 at 09:00 Pantoprazole 40 mg 40 mg DAILY@06 PO Last administered on 12/14/16 06:28; Admin Dose 40 MG; Start 12/14/16 at 06:00 Sodium Chloride (NS) 1,000 ml @ 50 mls/hr Q20H IV Last administered on 16:56; Admin Dose 50 MLS/HR; Start 12/13/16 at 18:00 Miscellaneous Information (Pending [facility] Order For Wound Care) This patient manuel... PRN PRN XX WOUND CARE; Start 12/13/16 at 17:30 Influenza Virus Vaccine 0.5 ml 0.5 ml ONCE ONCE IM* ; Start 12/14/16 at 20:00; Stop 12/14/16 at 20:01 Aztreonam 50 ml @ 100 mls/hr Q12 IVPB ; Start 12/14/16 at 21:00 Vancomycin HCl/ Sodium Chloride (Vancocin/NS) 250 ml @ 83.333 mls/ hr Q24H IVPB ; Start 12/15/16 at 03:00 MARYLIN BAIRES Dec 14, 2016 11:30
[2016-12-14] MEDS ORDERED: COLLAGENASE 30 GM TUBE TOP PRN (12:00)
[2016-12-14] MEDS ORDERED: PENDING SANTYL ORDER FOR WOUND CARE XX PRN (12:00)
[2016-12-14] MEDS ORDERED: COLLAGENASE 30 GM TUBE TOP SCH (12:00)
[2016-12-14] MEDS ORDERED: IBUPROFEN 600 MG TAB PO PRN (12:30)
[2016-12-14] MEDS ORDERED: ACETAMINOPHEN 325 MG TAB PO PRN (12:30)
[2016-12-14] MEDS: IBUPROFEN 400 MG TAB PO PRN (12:36)
[2016-12-14] MEDS: COLLAGENASE 30 GM TUBE TOP SCH (13:19)
[2016-12-14] MEDS: SOD CHLORIDE 0.9% 1,000 ML IV SCH (13:45)
--- NOTE | 2016-12-14 15:18 | CONS ---
Date/Time of Note Date/Time of Note DATE: 12/14/16 TIME: 15:07 Assessment/Plan Assessment/Plan Chief Complaint/Hosp Course 1. CAD: currently appears stable and with no angina RESUME plavix if no signs of bleeding. cont risk factor modifications. WILL CHECK ECHO not on betablocker due to pulm disease and hypotension. will consider adding betablocker once more stable 2. sepsis/ pneumonia/ UTI: Abx as per ID rec and IM 3. HTN: controlled now. 4. dyslipidemia: will check lipid panel 5. memory impairment/ encephalopathy : defer to IM. 6. anemia; check OB stool. OFF OF antiplatlet until OB is negative Thank you for his referral. I will continue to follow along with you. DEE ALVES MD [facility] Problems: Consultation Date/Type/Reason Admit Date/Time Dec 13, 2016 at 14:25 Date of Consultation: Dec 14, 2016 Type of Consultation: cardiology Reason for Consultation CAD Referring Provider: LENNIE FELIZ DO Hx of Present Illness CC: altered LOC, sepsis. HPI: Dear Dr. Feliz, thank you for his referral. This is a pleasant 81-year-old gentleman with history of coronary artery disease status post PCI about 10 years ago who was admitted because of sepsis and lateral nature of consciousness. Patient lives in a alf and was noted by the caregiver to have increasing lethargy and oscillator of consciousness. Patient is a poor historian but also case discussed with his caregiver as well as his daughter. Patient has been admitted with diagnosis of pneumonia and possible UTI. He has been seen by pulmonary and infectious disease freight traffic consultant has been placed on antibiotics. Due to his extensive history of coronary artery disease include history of PCI many years ago I was kindly asked to evaluate and treat the patient. Patient denies any chest pain or pressure to me denies any palpitation to be however his mostly bedridden and does not walk much. According to his daughter patient spoke with over the phone patient has not had any recent cardiac workup done. However has not had any cardiac event recently either. Patient has been short of breath and coughing recently as well. PAST MEDICAL HISTORY: history of coronary artery disease, S/P PCI about 10 years ago. history of neuropathy, history of Crohn's disease, history of hiatal hernia. memory impairment Hypertension Dyslipidemia PAST SURGICAL HISTORY: History of cardiac catheterization/ PCI. The patient also has had abdominal surgery. FAMILY HISTORY: No reported early coronary artery disease SOCIAL HISTORY: Lives at assisted living facility. No tobacco alcohol or drug use ALLERGIES: PENICILLIN. MEDICATIONS: Have been reviewed ROS: as above only. he denies all others. Past Surgical History Past Surgical Hx: angioplasty Social History Smoking Status: Never smoker Exam/Review of Systems Vital Signs Vitals Vital Signs Date Time Temp Pulse Resp B/P Pulse Ox O2 Delivery O2 Flow Rate FiO2 12/14/16 15:04 97.8 71 20 104/54 98 12/14/16 14:56 Nasal Cannula 2.0 Intake and Output 12/13/16 12/13/16 12/14/16 15:00 23:00 07:00 Intake Total 2220 ml 1150 ml Output Total 200 ml Balance 2220 ml 950 ml Exam General: thin man, no acute distress HEENT: NC/AT. pupils are equal. round. + Strabismus NECK: NO JVD. no stridor. CV: RRR. systolic murmur; no gallop or rubs. PULM: no wheezing but + rhonchi. GI: SOFT, NT, ND, no rebound or guarding Extremity: no significant LE edema. no clubbing. neuro: awake and alert, OX2. Psych: calm and pleasant rectal: deferred : normal male ECG: NSR. no ischemia. New right pulmonary infiltrates or pneumonia. Results Result Diagram: 12/14/16 0547 12/14/16 0547 Results 24 hrs Laboratory Tests Test 12/13/16 15:35 12/14/16 05:47 Lactic Acid Level 1.0 White Blood Count 17.5 H Red Blood Count 3.05 #L Hemoglobin 8.5 #L Hematocrit 27.7 L Mean Corpuscular Volume 90.8 Mean Corpuscular Hemoglobin 27.9 L Mean Corpuscular Hemoglobin Concent 30.7 L Red Cell Distribution Width 15.3 H Platelet Count 279 # Mean Platelet Volume 9.9 Neutrophils % 87.0 H Lymphocytes % 7.9 L Monocytes % 3.0 Eosinophils % 1.4 Basophils % 0.2 Nucleated Red Blood Cells % 0.0 Neutrophils # 15.2 H Lymphocytes # 1.4 Monocytes # 0.5 Eosinophils # 0.3 Basophils # 0.0 Nucleated Red Blood Cells # 0.0 Sodium Level 141 Potassium Level 4.0 Chloride Level 110 Carbon Dioxide Level 27 Anion Gap 8 # Blood Urea Nitrogen 46 H Creatinine 0.99 Glucose Level 100 # Calcium Level 8.0 L Phosphorus Level 3.3 Magnesium Level 2.0 Medications Medications Current Medications Duloxetine HCl (Cymbalta) 60 mg DAILY PO Last administered on 12/14/16 10:14 ; Admin Dose 60 MG; Start 12/14/16 at 09:00 Polyethylene Glycol (Miralax) 17 gm DAILY PO Last administered on 12/14/16 10 :14; Admin Dose 17 GM; Start 12/14/16 at 09:00 Trazodone HCl (Desyrel) 50 mg QHS PO Last administered on 12/13/16 21:26; Admin Dose 50 MG; Start 12/13/16 at 21:00 Triamcinolone Acetonide (Kenalog 0.1% Cr) 1 applic DAILY TOP Last administered on 12/14/16 11:04; Admin Dose 1 APPLIC; Start 12/14/16 at 09:00 Pantoprazole 40 mg 40 mg DAILY@06 PO Last administered on 12/14/16 06:28; Admin Dose 40 MG; Start 12/14/16 at 06:00 Sodium Chloride (NS) 1,000 ml @ 50 mls/hr Q20H IV Last administered on 16:56; Admin Dose 50 MLS/HR; Start 12/13/16 at 18:00 Influenza Virus Vaccine 0.5 ml 0.5 ml ONCE ONCE IM* ; Start 12/14/16 at 20:00; Stop 12/14/16 at 20:01 Aztreonam 50 ml @ 100 mls/hr Q12 IVPB ; Start 12/14/16 at 21:00 Vancomycin HCl/ Sodium Chloride (Vancocin/NS) 250 ml @ 83.333 mls/ hr Q24H IVPB ; Start 12/15/16 at 03:00 Collagenase (Santyl) 1 applic DAILY TOP Last administered on 12/14/16 13:19; Admin Dose 1 APPLIC; Start 12/14/16 at 13:00 Collagenase (Santyl) 1 applic PRN PRN TOP WOUND CARE; Start 12/14/16 at 12:00 Ibuprofen (Motrin) 400 mg Q6H PRN PO PAIN 1-3 Last administered on 12/14/16 12:36; Admin Dose 400 MG; Start 10/20/17 at 12:30 Acetaminophen (Tylenol Tab) 650 mg Q6H PRN PO PAIN AND OR ELEVATED TEMP; Start 12/14/16 at 12:30 DEE ALVES MD Dec 14, 2016 15:18
--- NOTE | 2016-12-14 16:22 | RADRPT ---
Echocardiogram Report Patient Name: MARISSA KOLB Gender: Male Date: 1935 Study Date: 14-Dec-2016 Staff Training And Development Manager: FAVIO Hong.[facility] Location: [id number] Ref. Physician: DEE OROZCO Quality: Technically Difficult Study Procedures: Transthoracic echocardiogram with complete 2D, M-Mode, and doppler examination. Indications: Evaluate Left Ventricular function. 2D/M Mode Doppler Measurement Value Normal Ranges Measurement Value Normal Ranges LVIDd 2D 3.6 3.5 - 5.6 cm MARIELLE Vmax 2.7 cm2 LVIDs 2D 2.4 2.1 - 4.1 cm MARIELLE VTI 2.7 cm2 LVPWd 2D 1.1 0.6 - 1.1 cm AV Peak Siddhartha 1.3 m/sec IVSd 2D 1.1 0.6 - 1.1 cm AV Peak PG 6.3 mmHg AoR Diam 2D 2.7 2.0 - 3.7 cm LVOT Peak Siddhartha 1.0 m/sec EDV 2D 55.0 cm3 LVOT Peak PG 3.9 mmHg ESV 2D 14.2 cm3 MV E Peak Siddhartha 0.9 m/sec LA Dimen 2D 2.7 2.3 - 4.0 cm MV A Peak Siddhartha 1.1 m/sec LVOT Diam 2.1 cm MV E/A 0.8 MV Decel Time 355 msec MV Decel [place] 2 MV E/A 0.8 TR Peak Siddhartha 2.0 m/sec TR Peak PG 16.1 mmHg RVSP 21.0 mmHg Findings Left Ventricle: Normal left ventricular systolic function. Normal left ventricular cavity size. Mild concentric left ventricular hypertrophy. Ejection fraction is visually estimated at 65 %. Tissue Doppler/Mitral Doppler indices are consistent with impaired relaxation (Stage I diastolic dysfunction). Right Ventricle: Normal right ventricular size. Normal right ventricular systolic function. Left Atrium: The left atrium is normal in size. Right Atrium: The right atrium is normal in size. Mitral Valve: Mitral valve leaflets appear mildly thickened. Mild mitral annular calcification. Mild mitral valve regurgitation. Aortic Valve: Normal appearance of the aortic valve. No significant aortic stenosis or insufficiency. Tricuspid Valve: Normal appearance and function of the tricuspid valve with trace physiologic regurgitation. Normal right ventricular systolic pressure. Estimated peak PA systolic pressure 21 mmHg. Pulmonic Valve: Pulmonic valve not well visualized. Pericardium: Normal pericardium with no significant pericardial effusion. Aorta: Normal aortic root. IVC: Normal size and normal respiratory collapse consistent with normal right atrial pressure. Conclusions 1.Normal left ventricular systolic function. Normal left ventricular cavity size. Mild concentric left ventricular hypertrophy. Ejection fraction is visually estimated at 65 %. Tissue Doppler/Mitral Doppler indices are consistent with impaired relaxation (Stage I diastolic dysfunction). 2.Mitral valve leaflets appear mildly thickened. Mild mitral annular calcification. Mild mitral valve regurgitation. 3.Normal appearance of the aortic valve. No significant aortic stenosis or insufficiency. 4.Normal appearance and function of the tricuspid valve with trace physiologic regurgitation. Normal right ventricular systolic pressure. Estimated peak PA systolic pressure 21 mmHg. Electronically Signed By: Dee Orozco 14-Dec-2016 16:20:58 -0700 Patient Name: MARISSA KOLB Study Date: 14-Dec-2016 [id number]
[2016-12-14] MEDS ORDERED: VANCOMYCIN 1 GM in NS 250 ML IVPB SCH (18:00)
[2016-12-14] MEDS ORDERED: INFLUENZA VIRUS VACCINE 0.5 ML SYG IM* ONE (20:00)
[2016-12-14] MEDS: AZTREONAM 1 GM/NS (PMX) 50 ML IVPB SCH (21:00)
[2016-12-14] MEDS: traZODone 50 MG TAB PO SCH (21:00)
[2016-12-15] VITALS (10 sets, daily range): BP systolic 100–153; BP diastolic 54–77; PULSE 70–87; RESP 18–20
[2016-12-15] MEDS: ALBUTEROL/IPRATROPIUM (NEB) 3 ML AMP HHN SCH ×4 (02:14→19:58)
[2016-12-15] MEDS ORDERED: VANCOMYCIN 750 MG in SOD CHLORIDE 0.9% 150 ML IVPB SCH (03:00)
[2016-12-15] MEDS: VANCOMYCIN 1.25 GM in SOD CHLORIDE 0.9% 250 ML IVPB SCH (04:55)
[2016-12-15] MEDS: PANTOPRAZOLE (EC) 40 MG TAB PO SCH (05:02)
[2016-12-15 06:54] LABS: BASOPHILS % 0.2 % (0.0-2.0); EOSINOPHILS # 0.2 10^3/ul (0.0-0.5); EOSINOPHILS % 1.5 % (0.0-7.0); HEMATOCRIT 26.5 % (42.0-52.0); HEMOGLOBIN 8.4 g/dl (14.0-18.0); LYMPHOCYTES # 1.1 10^3/ul (0.8-2.9); LYMPHOCYTES % 9.4 % (15.0-51.0); MEAN CORPUSCULAR HEMOGLOBIN 28.1 pg (29.0-33.0); MEAN CORPUSCULAR HGB CONC 31.7 g/dl (32.0-37.0); MEAN CORPUSCULAR VOLUME 88.6 fl (82.0-101.0); MONOCYTE # 0.5 10^3/ul (0.3-0.9); NEUTROPHIL # 9.7 10^3/ul (1.6-7.5); NEUTROPHILS % 84.3 % (39.0-77.0); PLATELET COUNT 286 10^3/UL (140-415); RED BLOOD COUNT 2.99 10^6/ul (4.70-6.10); WHITE BLOOD COUNT 11.6 10^3/ul (4.8-10.8)
[2016-12-15 07:40] LABS: ALBUMIN 2.6 g/dl (3.3-4.9); ALBUMIN/GLOBULIN RATIO 0.72; BILIRUBIN,INDIRECT 0.1 mg/dl (0-1.1); BILIRUBIN,TOTAL 0.1 mg/dl (0.2-1.3); CALCIUM 8.3 mg/dl (8.4-10.2); CHOL/HDL RATIO 3.8 RATIO; CREATININE 0.88 mg/dl (0.61-1.24); TOTAL PROTEIN 6.2 g/dl (6.1-8.1)
[2016-12-15 07:54] LABS: MAGNESIUM 1.9 mg/dl (1.7-2.5); THYROID STIMULATING HORMONE 1.56 MIU/L (0.465-4.680)
[2016-12-15] MEDS: POLYETHYLENE GLYCOL 17 GM PACKET PO SCH (09:00)
[2016-12-15] MEDS: DULOXETINE 30 MG CAP DR PO SCH (10:25)
[2016-12-15] MEDS: AZTREONAM 1 GM/NS (PMX) 50 ML IVPB SCH ×2 (10:25→21:41)
[2016-12-15] MEDS: TRIAMCINOLONE ACET 0.1% 15 GM CR TOP SCH (10:33)
[2016-12-15] MEDS: COLLAGENASE 30 GM TUBE TOP SCH (10:33)
--- NOTE | 2016-12-15 13:55 | CONS ---
Date/Time of Note Date/Time of Note DATE: 12/15/16 TIME: 13:54 Consult Date/Type/Reason Admit Date/Time Dec 13, 2016 at 14:25 Initial Consult Date 12/14/16 Type of Consultation: ID Ordering Provider: LENNIE ECHOLS DO Objective Vital Signs Date Time Temp Pulse Resp B/P Pulse Ox O2 Delivery O2 Flow Rate FiO2 12/15/16 11:26 98.6 79 18 153/68 98 12/15/16 08:37 2.0 28 12/15/16 02:15 Nasal Cannula Intake and Output 12/14/16 12/14/16 12/15/16 15:00 23:00 07:00 Intake Total 100 ml 770 ml 550 ml Output Total 900 ml 850 ml Balance 100 ml -130 ml -300 ml Results/Medications Result Diagram: 12/15/1660412/15/16 06 Results 24 hrs Laboratory Tests Test 12/15/16 06:05 White Blood Count 11.6 #H Red Blood Count 2.99 L Hemoglobin 8.4 L Hematocrit 26.5 L Mean Corpuscular Volume 88.6 Mean Corpuscular Hemoglobin 28.1 L Mean Corpuscular Hemoglobin Concent 31.7 L Red Cell Distribution Width 15.0 H Platelet Count 286 Mean Platelet Volume 10.0 Neutrophils % 84.3 H Lymphocytes % 9.4 L Monocytes % 4.0 Eosinophils % 1.5 Basophils % 0.2 Nucleated Red Blood Cells % 0.0 Neutrophils # 9.7 H Lymphocytes # 1.1 Monocytes # 0.5 Eosinophils # 0.2 Basophils # 0.0 Nucleated Red Blood Cells # 0.0 Sodium Level 143 Potassium Level 4.0 Chloride Level 112 H Carbon Dioxide Level 26 Anion Gap 9 Blood Urea Nitrogen 30 #H Creatinine 0.88 Glucose Level 98 Calcium Level 8.3 L Phosphorus Level 4.0 Magnesium Level 1.9 Total Bilirubin 0.1 L Direct Bilirubin 0.00 Indirect Bilirubin 0.1 Aspartate Amino Transf (AST/SGOT) 27 Alanine Aminotransferase (ALT/SGPT) 36 Alkaline Phosphatase 90 Creatine Kinase 143 B-Type Natriuretic Peptide 1880 H Total Protein 6.2 # Albumin 2.6 #L Globulin 3.60 H Albumin/Globulin Ratio 0.72 Triglycerides Level 66 Cholesterol Level 100 LDL Cholesterol, Calculated 61 HDL Cholesterol 26 L Cholesterol/HDL Ratio 3.8 Thyroid Stimulating Hormone (TSH) 1.560 Medications Current Medications Duloxetine HCl (Cymbalta) 60 mg DAILY PO Last administered on 12/15/16 10:25 ; Admin Dose 60 MG; Start 12/14/16 at 09:00 Polyethylene Glycol (Miralax) 17 gm DAILY PO Last administered on 12/14/16 10 :14; Admin Dose 17 GM; Start 12/14/16 at 09:00 Trazodone HCl (Desyrel) 50 mg QHS PO Last administered on 12/14/16 21:00; Admin Dose 50 MG; Start 12/13/16 at 21:00 Triamcinolone Acetonide (Kenalog 0.1% Cr) 1 applic DAILY TOP Last administered on 12/15/16 10:33; Admin Dose 1 APPLIC; Start 12/14/16 at 09:00 Pantoprazole 40 mg 40 mg DAILY@06 PO Last administered on 12/15/16 05:02; Admin Dose 40 MG; Start 12/14/16 at 06:00 Aztreonam 50 ml @ 100 mls/hr Q12 IVPB Last administered on 12/15/16 10:25; Admin Dose 100 MLS/HR; Start 12/14/16 at 21:00 Vancomycin HCl/ Sodium Chloride (Vancocin/NS) 250 ml @ 83.333 mls/ hr Q24H IVPB Last administered on 12/15/16 04:55; Admin Dose 83.333 MLS/HR; Start at 03:00 Collagenase (Santyl) 1 applic DAILY TOP Last administered on 12/15/16 10:33; Admin Dose 1 APPLIC; Start 12/14/16 at 13:00 Collagenase (Santyl) 1 applic PRN PRN TOP WOUND CARE; Start 12/14/16 at 12:00 Ibuprofen (Motrin) 400 mg Q6H PRN PO PAIN 1-3 Last administered on 12/14/16 12:36; Admin Dose 400 MG; Start 12/14/16 at 12:30 Acetaminophen (Tylenol Tab) 650 mg Q6H PRN PO PAIN AND OR ELEVATED TEMP; Start 12/14/16 at 12:30 Assessment/Plan Chief Complaint/Hosp Course Alert, feels good, denies pain. No fevers Antimicrobials: Vancomycin and aztreonam Allergies: Penicillins Physical examination: Chronically ill-appearing elderly man who is alert in no distress. Head atraumatic normocephalic sclerae nonicteric. Buccal mucosa dry. Neck is supple. Chest rise symmetrical breath sounds diminished bases. S1, S2, abdomen soft, Bowel tones present. Extremities without cyanosis Assessment: 1. Systemic inflammatory response syndrome with low-grade fevers and leukocytosis 2. Healthcare associated pneumonia, possibly aspiration 3. UTI 4. History of Crohn's disease 5. History of C. difficile colitis Plan: Patient remains stable white blood cell count tracing down, continue present care, antibiotics follow chest x-ray in a.m. Problems: FLORA LAWS NP Dec 15, 2016 13:55
--- NOTE | 2016-12-15 17:41 | CONS ---
Date/Time of Note Date/Time of Note DATE: 12/15/16 TIME: 17:40 Consult Date/Type/Reason Admit Date/Time Dec 13, 2016 at 14:25 Initial Consult Date 12/14/16 Type of Consultation: Pulm Ordering Provider: LENNIE ECHOLS DO Subjective No events. Objective Vital Signs Date Time Temp Pulse Resp B/P Pulse Ox O2 Delivery O2 Flow Rate FiO2 12/15/16 16:11 78 12/15/16 15:20 97.7 19 151/77 93 12/15/16 14:10 2.0 28 12/15/16 14:10 Nasal Cannula Intake and Output 12/14/16 12/14/16 12/15/16 15:00 23:00 07:00 Intake Total 100 ml 770 ml 550 ml Output Total 900 ml 850 ml Balance 100 ml -130 ml -300 ml Exam HEENT: Neck supple; no JVD; no LAD CVS: RRR, S1 and S2 CHEST: R > L rhonchi ABD: Soft, NT, + BS EXT: No c/c/e Results/Medications Result Diagram: 12/15/1660412/15/16 06 Results 24 hrs Laboratory Tests Test 12/15/16 06:05 White Blood Count 11.6 #H Red Blood Count 2.99 L Hemoglobin 8.4 L Hematocrit 26.5 L Mean Corpuscular Volume 88.6 Mean Corpuscular Hemoglobin 28.1 L Mean Corpuscular Hemoglobin Concent 31.7 L Red Cell Distribution Width 15.0 H Platelet Count 286 Mean Platelet Volume 10.0 Neutrophils % 84.3 H Lymphocytes % 9.4 L Monocytes % 4.0 Eosinophils % 1.5 Basophils % 0.2 Nucleated Red Blood Cells % 0.0 Neutrophils # 9.7 H Lymphocytes # 1.1 Monocytes # 0.5 Eosinophils # 0.2 Basophils # 0.0 Nucleated Red Blood Cells # 0.0 Sodium Level 143 Potassium Level 4.0 Chloride Level 112 H Carbon Dioxide Level 26 Anion Gap 9 Blood Urea Nitrogen 30 #H Creatinine 0.88 Glucose Level 98 Calcium Level 8.3 L Phosphorus Level 4.0 Magnesium Level 1.9 Total Bilirubin 0.1 L Direct Bilirubin 0.00 Indirect Bilirubin 0.1 Aspartate Amino Transf (AST/SGOT) 27 Alanine Aminotransferase (ALT/SGPT) 36 Alkaline Phosphatase 90 Creatine Kinase 143 B-Type Natriuretic Peptide 1880 H Total Protein 6.2 # Albumin 2.6 #L Globulin 3.60 H Albumin/Globulin Ratio 0.72 Triglycerides Level 66 Cholesterol Level 100 LDL Cholesterol, Calculated 61 HDL Cholesterol 26 L Cholesterol/HDL Ratio 3.8 Thyroid Stimulating Hormone (TSH) 1.560 Medications Current Medications Duloxetine HCl (Cymbalta) 60 mg DAILY PO Last administered on 12/15/16 10:25 ; Admin Dose 60 MG; Start 12/14/16 at 09:00 Polyethylene Glycol (Miralax) 17 gm DAILY PO Last administered on 12/14/16 10 :14; Admin Dose 17 GM; Start 12/14/16 at 09:00 Trazodone HCl (Desyrel) 50 mg QHS PO Last administered on 12/14/16 21:00; Admin Dose 50 MG; Start 12/13/16 at 21:00 Triamcinolone Acetonide (Kenalog 0.1% Cr) 1 applic DAILY TOP Last administered on 12/15/16 10:33; Admin Dose 1 APPLIC; Start 12/14/16 at 09:00 Pantoprazole 40 mg 40 mg DAILY@06 PO Last administered on 12/15/16 05:02; Admin Dose 40 MG; Start 12/14/16 at 06:00 Aztreonam 50 ml @ 100 mls/hr Q12 IVPB Last administered on 12/15/16 10:25; Admin Dose 100 MLS/HR; Start 12/14/16 at 21:00 Vancomycin HCl/ Sodium Chloride (Vancocin/NS) 250 ml @ 83.333 mls/ hr Q24H IVPB Last administered on 12/15/16 04:55; Admin Dose 83.333 MLS/HR; Start at 03:00 Collagenase (Santyl) 1 applic DAILY TOP Last administered on 12/15/16 10:33; Admin Dose 1 APPLIC; Start 12/14/16 at 13:00 Collagenase (Santyl) 1 applic PRN PRN TOP WOUND CARE; Start 12/14/16 at 12:00 Ibuprofen (Motrin) 400 mg Q6H PRN PO PAIN 1-3 Last administered on 12/14/16 12:36; Admin Dose 400 MG; Start 12/14/16 at 12:30 Acetaminophen (Tylenol Tab) 650 mg Q6H PRN PO PAIN AND OR ELEVATED TEMP; Start 12/14/16 at 12:30 Assessment/Plan Additional Assessment/Plan IMP: 1. Right-sided pna--aspiration vs. HCAP RECS: 1. Abx per ID 2. Aspiration precautions 3. BDs/CPT NICA ZAVALETA MD Dec 15, 2016 17:41
[2016-12-15] MEDS: IBUPROFEN 400 MG TAB PO PRN (21:41)
[2016-12-15] MEDS: traZODone 50 MG TAB PO SCH (21:41)
[2016-12-16] VITALS (12 sets, daily range): BP systolic 112–167; BP diastolic 55–80; PULSE 56–80; RESP 17–19
[2016-12-16] MEDS: ALBUTEROL/IPRATROPIUM (NEB) 3 ML AMP HHN SCH ×4 (02:00→20:18)
[2016-12-16] MEDS: VANCOMYCIN 1.25 GM in SOD CHLORIDE 0.9% 250 ML IVPB SCH (03:22)
[2016-12-16] MEDS: PANTOPRAZOLE (EC) 40 MG TAB PO SCH (05:55)
[2016-12-16 07:58] LABS: BASOPHILS % 0.5 % (0.0-2.0); EOSINOPHILS # 0.2 10^3/ul (0.0-0.5); EOSINOPHILS % 2.6 % (0.0-7.0); HEMOGLOBIN 9.3 g/dl (14.0-18.0); MEAN CORPUSCULAR HEMOGLOBIN 27.1 pg (29.0-33.0); MEAN CORPUSCULAR VOLUME 87.5 fl (82.0-101.0); MONOCYTE # 0.5 10^3/ul (0.3-0.9); MONOCYTES % 5.9 % (0.0-11.0); NEUTROPHIL # 6.8 10^3/ul (1.6-7.5); NEUTROPHILS % 78.4 % (39.0-77.0); PLATELET COUNT 288 10^3/UL (140-415); RED BLOOD COUNT 3.43 10^6/ul (4.70-6.10); WHITE BLOOD COUNT 8.7 10^3/ul (4.8-10.8)
[2016-12-16] MEDS: DULOXETINE 30 MG CAP DR PO SCH (08:15)
[2016-12-16] MEDS: POLYETHYLENE GLYCOL 17 GM PACKET PO SCH (08:15)
[2016-12-16] MEDS: AZTREONAM 1 GM/NS (PMX) 50 ML IVPB SCH ×2 (08:15→20:45)
[2016-12-16] MEDS: TRIAMCINOLONE ACET 0.1% 15 GM CR TOP SCH (08:16)
[2016-12-16] MEDS: COLLAGENASE 30 GM TUBE TOP SCH (08:16)
[2016-12-16 08:20] LABS: CALCIUM 8.3 mg/dl (8.4-10.2); CREATININE 0.74 mg/dl (0.61-1.24); MAGNESIUM 1.8 mg/dl (1.7-2.5); POTASSIUM 4.6 mmol/L (3.5-5.1)
[2016-12-16 08:29] LABS: PHOSPHORUS 3.9 mg/dl (2.5-4.9)
--- NOTE | 2016-12-16 16:33 | CONS ---
Date/Time of Note Date/Time of Note DATE: 12/16/16 TIME: 16:32 Consult Date/Type/Reason Admit Date/Time Dec 13, 2016 at 14:25 Initial Consult Date 12/14/16 Type of Consultation: Pulm Ordering Provider: LENNIE ECHOLS DO Subjective No events overnight. Afebrile. Objective Vital Signs Date Time Temp Pulse Resp B/P Pulse Ox O2 Delivery O2 Flow Rate FiO2 12/16/16 16:06 79 12/16/16 15:47 98.7 17 114/62 96 12/16/16 13:53 2.0 28 12/16/16 13:53 Nasal Cannula Intake and Output 12/15/16 12/15/16 12/16/16 15:00 23:00 07:00 Intake Total 1150 ml Output Total 2300 ml Balance -1150 ml Exam HEENT: Neck supple; no JVD; no LAD CVS: RRR, S1 and S2 CHEST: R > L rhonchi ABD: Soft, NT, + BS EXT: No c/c/e Results/Medications Result Diagram: 12/16/1671812/16/1619 Results 24 hrs Laboratory Tests Test 12/16/16 07:19 White Blood Count 8.7 # Red Blood Count 3.43 L Hemoglobin 9.3 L Hematocrit 30.0 L Mean Corpuscular Volume 87.5 Mean Corpuscular Hemoglobin 27.1 L Mean Corpuscular Hemoglobin Concent 31.0 L Red Cell Distribution Width 15.0 H Platelet Count 288 Mean Platelet Volume 10.0 Neutrophils % 78.4 H Lymphocytes % 12.0 L Monocytes % 5.9 Eosinophils % 2.6 Basophils % 0.5 Nucleated Red Blood Cells % 0.0 Neutrophils # 6.8 Lymphocytes # 1.0 Monocytes # 0.5 Eosinophils # 0.2 Basophils # 0.0 Nucleated Red Blood Cells # 0.0 Sodium Level 142 Potassium Level 4.6 Chloride Level 111 H Carbon Dioxide Level 25 Anion Gap 11 Blood Urea Nitrogen 19 # Creatinine 0.74 Glucose Level 85 Calcium Level 8.3 L Phosphorus Level 3.9 Magnesium Level 1.8 Medications Current Medications Duloxetine HCl (Cymbalta) 60 mg DAILY PO Last administered on 12/16/16t 08:15 ; Admin Dose 60 MG; Start 12/14/16 at 09:00 Polyethylene Glycol (Miralax) 17 gm DAILY PO Last administered on 12/16/16 08 :15; Admin Dose 17 GM; Start 12/14/16 at 09:00 Trazodone HCl (Desyrel) 50 mg QHS PO Last administered on 12/15/16 21:41; Admin Dose 50 MG; Start 12/13/16 at 21:00 Triamcinolone Acetonide (Kenalog 0.1% Cr) 1 applic DAILY TOP Last administered on 12/16/16 08:16; Admin Dose 1 APPLIC; Start 12/14/16 at 09:00 Pantoprazole 40 mg 40 mg DAILY@06 PO Last administered on 12/16/16 05:55; Admin Dose 40 MG; Start 12/14/16 at 06:00 Aztreonam 50 ml @ 100 mls/hr Q12 IVPB Last administered on 12/16/16 08:15; Admin Dose 100 MLS/HR; Start 12/14/16 at 21:00 Vancomycin HCl/ Sodium Chloride (Vancocin/NS) 250 ml @ 83.333 mls/ hr Q24H IVPB Last administered on 12/16/16 03:22; Admin Dose 83.333 MLS/HR; Start at 03:00 Collagenase (Santyl) 1 applic DAILY TOP Last administered on 12/16/16 08:16; Admin Dose 1 APPLIC; Start 12/14/16 at 13:00 Collagenase (Santyl) 1 applic PRN PRN TOP WOUND CARE; Start 12/14/16 at 12:00 Acetaminophen (Tylenol Tab) 650 mg Q6H PRN PO PAIN AND OR ELEVATED TEMP; Start 12/14/16 at 12:30 Miscellaneous Information (*Rx Drug Level Order Reminder*) VANCO TROUGH @ 0, 200 ON ... ONCE ONCE XX ; Start 12/17/16 at 02:00; Stop 12/17/16 at 02:01 Assessment/Plan Additional Assessment/Plan IMP: 1. Right-sided pna--aspiration vs. HCAP RECS: 1. Abx per ID 2. Aspiration precautions/HOB>40 3. BDs/CPT 4. NICA SAPP MD Dec 16, 2016 16:33
--- NOTE | 2016-12-16 16:42 | PN ---
DATE: 12/16/2016 SUBJECTIVE: The patient is stable. No events overnight. No fevers, chills, nausea, vomiting. OBJECTIVE: VITAL SIGNS: Blood pressure is 128/70, pulse 90, respirations 20, temperature 98.1. HEENT: Head is normocephalic. NECK: Supple. HEART: Regular rate. LUNGS: Show diminished breath sounds at base. ABDOMEN: Soft, nontender to palpation without rebound or guarding. EXTREMITIES: Negative for clubbing, cyanosis, no edema. DERMATOLOGIC: No rashes. MUSCULOSKELETAL: No joint effusions. NEUROLOGIC: No change in exam. MEDICATIONS: The patient's medications have been reviewed. LABORATORY DATA: Shows white count 8.7, hemoglobin 9.3, hematocrit 30.1, platelet count 288. Sodiu m 142, potassium 4.6, BUN 19, creatinine 1.74. Patient's cultures have been reviewed. ASSESSMENT AND PLAN: 1. Severe sepsis secondary to urinary tract infection and pneumonia. The patient is clinically imp roving. Continue current antibiotic regimen and will consider switching to p.o. antibiotics. Discu ssed with and follow up with infectious disease. 2. Acute respiratory failure secondary to pneumonia. The patient clinically improved. Continue ne bulizers. Continue supplemental oxygen. 3. Arrhythmia, currently in sinus rhythm. Continue to monitor. Follow up with Cardiology. 4. Nonoliguric acute kidney injury with unknown baseline creatinine. Etiology is secondary to hemo dynamics. Renal function is improved with IV hydration. Continue to monitor. 5. Coronary artery disease status post percutaneous coronary intervention. Continue medical manage ment. 6. Neuropathy. Continue Lyrica. 7. Dyslipidemia. Continue statin therapy. 8. Depression and anxiety. Continue duloxetine. 9. Anemia. Monitor hemoglobin and hematocrit levels. 10. Gastrointestinal and deep venous thrombosis prophylaxis. Continue proton pump inhibitor and se quential leg squeezers. Dictated By: LENNIE ECHEVERRIA/SONIA Conf#: [id number] DID#: [id number]
--- NOTE | 2016-12-16 19:51 | CONS ---
Date/Time of Note Date/Time of Note DATE: 12/16/16 TIME: 19:50 Consult Date/Type/Reason Admit Date/Time Dec 13, 2016 at 14:25 Initial Consult Date 12/14/16 Type of Consultation: ID Ordering Provider: LENNIE ECHOLS DO Objective Vital Signs Date Time Temp Pulse Resp B/P Pulse Ox O2 Delivery O2 Flow Rate FiO2 12/16/16 18:08 2.0 28 12/16/16 16:06 79 12/16/16 15:47 98.7 17 114/62 96 12/16/16 13:53 Nasal Cannula Intake and Output 12/15/16 12/15/16 12/16/16 15:00 23:00 07:00 Intake Total 1150 ml Output Total 2300 ml Balance -1150 ml Results/Medications Result Diagram: 12/16/1671812/16/16718 Results 24 hrs Laboratory Tests Test 12/16/16 07:19 White Blood Count 8.7 # Red Blood Count 3.43 L Hemoglobin 9.3 L Hematocrit 30.0 L Mean Corpuscular Volume 87.5 Mean Corpuscular Hemoglobin 27.1 L Mean Corpuscular Hemoglobin Concent 31.0 L Red Cell Distribution Width 15.0 H Platelet Count 288 Mean Platelet Volume 10.0 Neutrophils % 78.4 H Lymphocytes % 12.0 L Monocytes % 5.9 Eosinophils % 2.6 Basophils % 0.5 Nucleated Red Blood Cells % 0.0 Neutrophils # 6.8 Lymphocytes # 1.0 Monocytes # 0.5 Eosinophils # 0.2 Basophils # 0.0 Nucleated Red Blood Cells # 0.0 Sodium Level 142 Potassium Level 4.6 Chloride Level 111 H Carbon Dioxide Level 25 Anion Gap 11 Blood Urea Nitrogen 19 # Creatinine 0.74 Glucose Level 85 Calcium Level 8.3 L Phosphorus Level 3.9 Magnesium Level 1.8 Medications Current Medications Duloxetine HCl (Cymbalta) 60 mg DAILY PO Last administered on 12/16/16 08:15 ; Admin Dose 60 MG; Start 12/14/16 at 09:00 Polyethylene Glycol (Miralax) 17 gm DAILY PO Last administered on 12/16/16 08 :15; Admin Dose 17 GM; Start 12/14/16 at 09:00 Trazodone HCl (Desyrel) 50 mg QHS PO Last administered on 10/21/17at 21:41; Admin Dose 50 MG; Start 12/13/16 at 21:00 Triamcinolone Acetonide (Kenalog 0.1% Cr) 1 applic DAILY TOP Last administered on 12/16/16 08:16; Admin Dose 1 APPLIC; Start 12/14/16 at 09:00 Pantoprazole 40 mg 40 mg DAILY@06 PO Last administered on 12/16/16 05:55; Admin Dose 40 MG; Start 12/14/16 at 06:00 Aztreonam 50 ml @ 100 mls/hr Q12 IVPB Last administered on 12/16/16 08:15; Admin Dose 100 MLS/HR; Start 12/14/16 at 21:00 Vancomycin HCl/ Sodium Chloride (Vancocin/NS) 250 ml @ 83.333 mls/ hr Q24H IVPB Last administered on 12/16/16 03:22; Admin Dose 83.333 MLS/HR; Start at 03:00 Collagenase (Santyl) 1 applic DAILY TOP Last administered on 12/16/16 08:16; Admin Dose 1 APPLIC; Start 12/14/16 at 13:00 Collagenase (Santyl) 1 applic PRN PRN TOP WOUND CARE; Start 12/14/16 at 12:00 Acetaminophen (Tylenol Tab) 650 mg Q6H PRN PO PAIN AND OR ELEVATED TEMP; Start 12/14/16 at 12:30 Miscellaneous Information (*Rx Drug Level Order Reminder*) VANCO TROUGH @ 0, 200 ON ... ONCE ONCE XX ; Start 12/17/16 at 02:00; Stop 12/17/16 at 02:01 Assessment/Plan Chief Complaint/Hosp Course No acute changes, awake, looks comfortable, no fevers, wbc decreasing Antimicrobials: Vancomycin and aztreonam Allergies: Penicillins Physical examination: Chronically ill-appearing elderly man who is alert in no distress. Head atraumatic normocephalic sclerae nonicteric. Buccal mucosa dry. Neck is supple. Chest rise symmetrical breath sounds diminished bases. S1, S2, abdomen soft, Bowel tones present. Extremities without cyanosis Assessment: 1. Systemic inflammatory response syndrome with low-grade fevers and leukocytosis 2. Healthcare associated pneumonia, possibly aspiration 3. UTI 4. History of Crohn's disease 5. History of C. difficile colitis Plan: Patient remains stable, white blood cell count tracing down, continue present care, anticipate dc on PO Levaquin for 7 days [facility] staff Problems: FLORA LAWS WASHCOAT WIPER Dec 16, 2016 19:51
[2016-12-16] MEDS: traZODone 50 MG TAB PO SCH (20:45)
[2016-12-17] VITALS (9 sets, daily range): BP systolic 118–161; BP diastolic 58–77; PULSE 63–80; RESP 18–19
[2016-12-17] MEDS: ALBUTEROL/IPRATROPIUM (NEB) 3 ML AMP HHN SCH ×2 (01:40→08:03)
[2016-12-17] MEDS: VANCOMYCIN 1.25 GM in SOD CHLORIDE 0.9% 250 ML IVPB SCH (03:10)
[2016-12-17] MEDS: PANTOPRAZOLE (EC) 40 MG TAB PO SCH (06:09)
--- NOTE | 2016-12-17 07:58 | PN ---
DATE: 12/15/2016 SUBJECTIVE: The patient is clinically improving. No acute events overnight. No fevers, chills, na usea, vomiting. OBJECTIVE: VITAL SIGNS: Blood pressure is 153/68, temperature 98.6, pulse 79, respiration 18. HEENT: Head is normocephalic. NECK: Supple. HEART: Regular rate. LUNGS: Show diminished breath sounds at the base. ABDOMEN: Soft, nontender to palpation. No rebound or guarding. EXTREMITIES: Negative for clubbing, cyanosis, edema. DERMATOLOGIC: No rashes. MUSCULOSKELETAL: No joint effusions. NEUROLOGIC: No change in exam. MEDICATIONS: The patient's medications have been reviewed. LABORATORY DATA: Shows white count 11.6, hemoglobin 8.4, platelet count 286. Sodium 143, potassium 4.0, chloride 112, BUN 13, creatinine 0.88. ASSESSMENT AND PLAN: 1. Severe sepsis, etiology secondary to ____ urinary tract infection. The patient is clinically im proving. Continue current treatment plan. Continue antibiotic therapy. We will discontinue IV flu ids. Follow up with infectious disease. 2. Acute respiratory failure secondary to pneumonia. The patient is clinically improving. Continu e current nebulizers, continue supplemental oxygen. 3. Nonoliguric acute kidney injury on top of chronic kidney disease. Etiology is secondary to hemo dynamic sepsis. Renal function is improved. Continue current treatment plan. 4. Acute encephalopathy on dementia. Etiology is possibly metabolic. Continue to monitor. Contin ue to treat underlying sepsis. Mental status is improving. 5. Anemia. Monitor hemoglobin and hematocrit levels. 6. ____. Monitor calcium and phosphorus levels. 7. Decubitus wound. Continue wound care. 8. History of coronary artery disease, status post percutaneous coronary intervention. Continue me dical management. 9. Neuropathy. Continue ____. 10. Depression. Continue duloxetine. 11. History of Crohn disease. 12. Status post lactic acidosis. 13. Gastrointestinal and deep venous thrombosis prophylaxis. Dictated By: LENNIE ECHEVERRIA/SONIA Conf#: [id number] DID#: [id number]
[2016-12-17] MEDS: DULOXETINE 30 MG CAP DR PO SCH (08:15)
[2016-12-17] MEDS: COLLAGENASE 30 GM TUBE TOP SCH (08:16)
[2016-12-17] MEDS: TRIAMCINOLONE ACET 0.1% 15 GM CR TOP SCH (08:16)
[2016-12-17] MEDS: AZTREONAM 1 GM/NS (PMX) 50 ML IVPB SCH (08:16)
[2016-12-17] MEDS: POLYETHYLENE GLYCOL 17 GM PACKET PO SCH (08:16)
--- NOTE | 2016-12-17 10:33 | DS ---
DATE OF ADMISSION: 12/13/2016 DATE OF DISCHARGE: HOSPITAL COURSE: This is an 81-year-old male with a past medical history of coronary artery disease , peripheral neuropathy, history of Crohn's disease, hiatal hernia, aspiration pneumonia, who presen hope to [facility] from assisted living facility due to altered mental status. The patient was found to be more confused than his previous baseline. Upon arrival, the patient noted to have a white count of 21,000, BUN 53, creatinine 1.45, lactic acid 4.4. The patient was admitted to telemetry for severe sepsis. Etiology secondary to healthcare-acquired pneumonia and UTI. The patient was treated with IV fluids and antibiotic therapy. The patient had a good clinical response with improvement clinically. The patient's white count normalized. He was seen by infectious dise ase, Dr. Arango. Patient has been on IV antibiotics for 5 days during hospital course, and will com plete 7 more days of oral antibiotic therapy of Levaquin. The patient also had acute respiratory fa ilure on admission secondary to pneumonia, that has clinically improved with IV antibiotics and nebu lizers, and patient currently is being weaned off oxygen. The patient also developed acute encephal opathy on admission, which improved during the hospital course. The patient also had acute kidney i njury on admission due to hemodynamics and that resolved with IV hydration. The patient's other med ical problems including decubitus wound, that which was present on admission, as well as depression, neuropathy and coronary artery disease have been stable. Currently, at this time, the patient is s table, in no acute distress. He will be discharged back to assisted living facility where he will c ontinue wound management and wound care, and follow up with his primary care physician. At the time of discharge, the patient is stable, in no acute distress. FINAL DIAGNOSES: 1. Severe sepsis secondary to pneumonia, urinary tract infection, improved. 2. Acute respiratory failure, resolving. 3. Acute skkuldlpaimeop-en-ypxmsuza, resolving. 4. Nonoliguric acute kidney injury, resolved. 5. Lactic acidosis, resolved. 6. Anemia. 7. Mineral bone disorder. 8. Decubitus wound. 9. Coronary artery disease. 10. Neuropathy. 11. Depression. 12. History of Crohn's disease. FINAL MEDICATIONS: See reconciliation list. Please note, the patient will also be on Levaquin 500 mg daily for 7 days. Please note I spent over 40 minutes of time preparing patient's discharge. Dictated By: LENNIE ECHEVERRIA/SONIA Conf#: [id number] DID#: [id number]
--- NOTE | 2016-12-17 12:02 | PN ---
DATE: 12/14/2016 SUBJECTIVE: No acute events overnight. The patient is awake, looks comfortable, denies pain, no fe vers. LABORATORY DATA: WBC today 17.5, platelets 279, neutrophils 87, BUN 46, creatinine 0.99. MICROBIOLOGY: Urine culture grew staph species. Blood cultures have been negative. ANTIMICROBIALS: The patient is on IV vancomycin, status post aztreonam. DIAGNOSTICS: Chest x-ray on admission revealed new right pulmonary infiltrates or pneumonia. CT of the brain revealed no acute intracranial hemorrhage, partial opacification of right maxillary sinus . ALLERGIES: PENICILLIN. PHYSICAL EXAMINATION: GENERAL: This is a well-developed, fragile, elderly man who is alert, in no distress. HEENT: Head atraumatic, normocephalic. Sclerae anicteric. Buccal mucosa pink, dry. NECK: Supple. CHEST: Rise symmetrical. Breath sounds diminished to bases. HEART: S1, S2. ABDOMEN: Soft. Bowel sounds present. ASSESSMENT: 1. Systemic inflammatory response syndrome. 2. Pneumonia. 3. Urinary tract infection. 4. Dementia. 5. History of Clostridium difficile colitis. 6. History of coronary artery disease. 7. ALLERGY TO PENICILLIN, resulting in rash. PLAN: Patient is improving. Continue present care. Continue vancomycin and aztreonam, anti-aspira tion measures. Follow pulmonary recommendations. Dictated By: FLORA LAWS SHOWER MAID for DANIEL CLEMENT/SONIA Conf#: [id number] DID#: [id number]
--- NOTE | 2016-12-17 13:13 | CONS ---
Date/Time of Note Date/Time of Note DATE: 12/17/16 TIME: 13:13 Consult Date/Type/Reason Admit Date/Time Dec 13, 2016 at 14:25 Initial Consult Date 12/14/16 Type of Consultation: ID Ordering Provider: LENNIE ECHOLS DO Objective Vital Signs Date Time Temp Pulse Resp B/P Pulse Ox O2 Delivery O2 Flow Rate FiO2 12/17/16 13:02 65 12/17/16 11:21 97.5 18 118/63 93 12/17/16 10:11 Room Air 12/17/16 00:00 2.0 12/16/16 20:18 28 Intake and Output 12/16/16 12/16/16 12/17/16 15:00 23:00 07:00 Intake Total 550 ml 200 ml Output Total 500 ml Balance 550 ml -300 ml Results/Medications Result Diagram: 12/16/1671812/16/16718 Results 24 hrs Laboratory Tests Test 12/17/16 01:49 Vancomycin Level Trough 11.3 Medications Current Medications Duloxetine HCl (Cymbalta) 60 mg DAILY PO Last administered on 12/17/16 08:15 ; Admin Dose 60 MG; Start 12/14/16 at 09:00 Polyethylene Glycol (Miralax) 17 gm DAILY PO Last administered on 12/17/16 08 :16; Admin Dose 17 GM; Start 12/14/16 at 09:00 Trazodone HCl (Desyrel) 50 mg QHS PO Last administered on 12/16/16 20:45; Admin Dose 50 MG; Start 12/13/16 at 21:00 Triamcinolone Acetonide (Kenalog 0.1% Cr) 1 applic DAILY TOP Last administered on 12/17/16 08:16; Admin Dose 1 APPLIC; Start 12/14/16 at 09:00 Pantoprazole 40 mg 40 mg DAILY@06 PO Last administered on 12/17/16 06:09; Admin Dose 40 MG; Start 12/14/16 at 06:00 Aztreonam 50 ml @ 100 mls/hr Q12 IVPB Last administered on 12/17/16 08:16; Admin Dose 100 MLS/HR; Start 12/14/16 at 21:00 Vancomycin HCl/ Sodium Chloride (Vancocin/NS) 250 ml @ 83.333 mls/ hr Q24H IVPB Last administered on 12/17/16 03:10; Admin Dose 83.333 MLS/HR; Start at 03:00 Collagenase (Santyl) 1 applic DAILY TOP Last administered on 12/17/16 08:16; Admin Dose 1 APPLIC; Start 12/14/16 at 13:00 Collagenase (Santyl) 1 applic PRN PRN TOP WOUND CARE; Start 12/14/16 at 12:00 Acetaminophen (Tylenol Tab) 650 mg Q6H PRN PO PAIN AND OR ELEVATED TEMP; Start 12/14/16 at 12:30 Assessment/Plan Chief Complaint/Hosp Course No acute changes, awake, looks comfortable, no fevers, wbc decreasing Antimicrobials: Vancomycin and aztreonam Allergies: Penicillins Physical examination: Chronically ill-appearing elderly man who is alert in no distress. Head atraumatic normocephalic sclerae nonicteric. Buccal mucosa dry. Neck is supple. Chest rise symmetrical breath sounds diminished bases. S1, S2, abdomen soft, Bowel tones present. Extremities without cyanosis Assessment: 1. Systemic inflammatory response syndrome with low-grade fevers and leukocytosis 2. Healthcare associated pneumonia, possibly aspiration 3. UTI 4. History of Crohn's disease 5. History of C. difficile colitis Plan: Patient remains stable, continue present care, anticipate dc on PO Levaquin for 6 more days [facility] staff Problems: FLORA LAWS NP Dec 17, 2016 13:13
--- NOTE | 2016-12-17 14:45 | CONS ---
Date/Time of Note Date/Time of Note DATE: 12/17/16 TIME: 14:45 Consult Date/Type/Reason Admit Date/Time Dec 13, 2016 at 14:25 Initial Consult Date 12/14/16 Type of Consultation: Pulmonary Ordering Provider: LENNIE ECHOLS DO Subjective Comfortable this morning. No acute distress Objective Vital Signs Date Time Temp Pulse Resp B/P Pulse Ox O2 Delivery O2 Flow Rate FiO2 12/17/16 13:02 65 12/17/16 11:21 97.5 18 118/63 93 12/17/16 10:11 Room Air 12/17/16 00:00 2.0 12/16/16 20:18 28 Intake and Output 12/16/16 12/16/16 12/17/16 15:00 23:00 07:00 Intake Total 550 ml 200 ml Output Total 500 ml Balance 550 ml -300 ml Exam GENERAL: VITAL SIGNS: per chart NECK: Supple. No JVD or lymphadenopathy. CARDIAC EXAM: S1, S2. No added sounds or murmurs. CHEST: clear bilaterally, No added sounds, rales or wheezes ABDOMEN: Soft, nontender. No guarding or rebound. EXTREMITIES: No cyanosis, clubbing or edema. NEUROLOGIC: Generalized weakness. No focal deficits. Results/Medications Result Diagram: 12/16/1671812/16/16718 Results 24 hrs Laboratory Tests Test 12/17/16 01:49 Vancomycin Level Trough 11.3 Medications Current Medications Duloxetine HCl (Cymbalta) 60 mg DAILY PO Last administered on 12/17/16 08:15 ; Admin Dose 60 MG; Start 12/14/16 at 09:00 Polyethylene Glycol (Miralax) 17 gm DAILY PO Last administered on 12/17/16 08 :16; Admin Dose 17 GM; Start 12/14/16 at 09:00 Trazodone HCl (Desyrel) 50 mg QHS PO Last administered on 12/16/16 20:45; Admin Dose 50 MG; Start 12/13/16 at 21:00 Triamcinolone Acetonide (Kenalog 0.1% Cr) 1 applic DAILY TOP Last administered on 12/17/16 08:16; Admin Dose 1 APPLIC; Start 12/14/16 at 09:00 Pantoprazole 40 mg 40 mg DAILY@06 PO Last administered on 12/17/16 06:09; Admin Dose 40 MG; Start 12/14/16 at 06:00 Aztreonam 50 ml @ 100 mls/hr Q12 IVPB Last administered on 12/17/16 08:16; Admin Dose 100 MLS/HR; Start 12/14/16 at 21:00 Vancomycin HCl/ Sodium Chloride (Vancocin/NS) 250 ml @ 83.333 mls/ hr Q24H IVPB Last administered on 12/17/16 03:10; Admin Dose 83.333 MLS/HR; Start at 03:00 Collagenase (Santyl) 1 applic DAILY TOP Last administered on 12/17/16 08:16; Admin Dose 1 APPLIC; Start 12/14/16 at 13:00 Collagenase (Santyl) 1 applic PRN PRN TOP WOUND CARE; Start 12/14/16 at 12:00 Acetaminophen (Tylenol Tab) 650 mg Q6H PRN PO PAIN AND OR ELEVATED TEMP; Start 12/14/16 at 12:30 Assessment/Plan Chief Complaint/Hosp Course IMP: 1. Right-sided pna--aspiration vs. HCAP RECS: 1. Abx per ID 2. Aspiration precautions/HOB>40 3. BDs/CPT 4. OOB Agree with discharge planning Problems: [facility] GIVENS [facility] Dec 17, 2016 14:45
== END 2016-12-17 15:06 | disposition home health service (06) | DRG 871 ==
LOC: E/R 10:27 → TEL 14:25
PROVIDERS: ADMIT Internal Medicine; ATTEND Internal Medicine
DX: A41.9 Sepsis, unspecified organism (principal); J96.00 Acute respiratory failure, unspecified whether with hypoxia or hypercapnia; E43 Unspecified severe protein-calorie malnutrition; R65.21 Severe sepsis with septic shock; G92 Toxic encephalopathy; E87.2 Acidosis; N17.9 Acute kidney failure, unspecified; L89.324 Pressure ulcer of left buttock, stage 4; J18.9 Pneumonia, unspecified organism; K50.90 Crohn's disease, unspecified, without complications; N39.0 Urinary tract infection, site not specified; Y95 Nosocomial condition; F32.9 Major depressive disorder, single episode, unspecified; I25.10 Atherosclerotic heart disease of native coronary artery without angina pectoris; D64.9 Anemia, unspecified; G62.9 Polyneuropathy, unspecified; Z66 Do not resuscitate; Z88.0 Allergy status to penicillin; Z68.20 Body mass index [BMI] 20.0-20.9, adult; Z87.891 Personal history of nicotine dependence; Z95.5 Presence of coronary angioplasty implant and graft
CPT/HCPCS: 36415; 70450; 71010; 80048; 80053; 80061; 80202; 81001; 82550; 82962; 83605; 83735; 83880; 84100; 84443; 84484; 85025; 85610; 85730; 87040; 87081; 87086; 90686; 92610; 93005; 93306; 94640; 94664; 96365; 96375; 97110; 97163; 97530; J3370; J7030; J7050

== ENCOUNTER 2017-01-03 22:00 | Inpatient (IN) | payer MEDICARE, OTHER ==
[~2017-01-03] VITALS: Ht 182.9 cm; Wt 62.0 kg
[~2017-01-03 22:00] MED LIST changes: -CLOP75TA27 PO; -DOCU-159 PO; -EZET10TA3 PO; +IBUP200C11 PO; -PANT40TA4 PO; +POLY17PO6 PO; -PREG50CA PO; -ZOLP12.54 PO
--- NOTE | 2017-01-03 23:14 | ERD ---
ER Documentation Chief Complaint Chief Complaint c/o n/v HPI The patient is a 81-year-old male, presenting to the ER because he has had intermittent cough, has vomited multiple times today, initially food and phlegm , associated with constipation. The history is obtained from the patient and the caregivers. He denies fever, chills, neck pain, chest pain, dysuria. He does not smoke nor drink Past medical history: CAD, peripheral neuropathy, Crohn's disease, hiatal hernia , dementia, depression Past surgical history: Abdominal surgery, details unclear ROS All systems reviewed and are negative except as per history of present illness. Medications Home Meds Reported Medications Ibuprofen* (Advil*) 200 Mg Capsule, 200 MG PO Q6H Y for PAIN, CAP 12/13/16 Polyethylene Glycol* (Miralax*) 17 Gm Powd.pack, 17 GM PO DAILY, #30 PACKET 12/13/16 Duloxetine Hcl* (Duloxetine Hcl*) 60 Mg Capsule.dr, 60 MG PO DAILY, #30 CAP 12/13/16 Melatonin (Melatonin) 5 Mg Tablet, 5 MG PO HS, TAB 06/27/16 Triamcinolone Acetonide (Triamcinolone Acetonide) 0.1% - 15 Gm Cream.gm., 1 APPLIC TOP DAILY, #1 TUB 06/27/16 Omeprazole* (Omeprazole*) 20 Mg Capsule.dr, 20 MG PO DAILY, #30 CAP 06/27/16 Trazodone Hcl* (Trazodone Hcl*) 50 Mg Tablet, 50 MG PO QHS, #30 TAB 06/27/16 Allergies Allergies: Coded Allergies: Penicillins (Verified Allergy, Unknown, 12/13/16) rash PMhx/Soc History of Surgery: No Anesthesia Reaction: No Hx Neurological Disorder: Yes (chronic encephalopathy) Hx Respiratory Disorders: Yes (PNA) Hx Cardiac Disorders: Yes (sinus bradycardia) Hx Psychiatric Problems: No Hx Miscellaneous Medical Probl: Yes (CAD, peripheral neuropathy,crohn;s dse, hiatal hernia, PNA,C diff, dementia) Hx Alcohol Use: No Hx Substance Use: No Hx Tobacco Use: No Physical Exam Vitals Vital Signs Date Time Temp Pulse Resp B/P Pulse Ox O2 Delivery O2 Flow Rate FiO2 01/04/17 03:33 98.1 95 19 132/91 100 Room Air 01/03/17 23:16 98.1 106 20 126/81 96 Room Air 01/03/17 22:01 97.6 78 20 130/70 96 Physical Exam Const: No acute distress. Head: Atraumatic. Eyes: Normal Conjunctiva. ENT: Normal External Ears, Nose and Mouth. Neck: Full range of motion. No meningismus. Resp: Clear to auscultation bilaterally. Cardio: Regular rate and rhythm. Abd: Soft, non distended, normal bowel sounds, non tender. Skin: No petechiae or rashes. Back: No midline or flank tenderness. Ext: No cyanosis, or edema. Neur: Awake and alert. No focal deficit Psych: Normal Mood and Affect. Result Diagram: 01/03/17 2315 01/03/17 231 Results 24 hrs Laboratory Tests Test 01/03/17 23:15 01/03/17 23:33 01/04/17 01:05 White Blood Count 22.510^3/ul Red Blood Count 3.7710^6/ul Hemoglobin 10.0g/dl Hematocrit 33.4% Mean Corpuscular Volume 88.6fl Mean Corpuscular Hemoglobin 26.5pg Mean Corpuscular Hemoglobin Concent 29.9g/dl Red Cell Distribution Width 15.8% Platelet Count 12763^3/UL Mean Platelet Volume 10.3fl Neutrophils % 89.2% Lymphocytes % 6.9% Monocytes % 3.0% Eosinophils % 0.1% Basophils % 0.2% Nucleated Red Blood Cells % 0.0/100WBC Neutrophils # 20.010^3/ul Lymphocytes # 1.610^3/ul Monocytes # 0.710^3/ul Eosinophils # 0.010^3/ul Basophils # 0.110^3/ul Nucleated Red Blood Cells # 0.010^3/ul Sodium Level 139mmol/L Potassium Level 5.3mmol/L Chloride Level 102mmol/L Carbon Dioxide Level 25mmol/L Anion Gap 17 Blood Urea Nitrogen 57mg/dl Creatinine 1.50mg/dl Glucose Level 105mg/dl Calcium Level 9.6mg/dl Total Bilirubin 0.1mg/dl Direct Bilirubin 0.00mg/dl Indirect Bilirubin 0.1mg/dl Aspartate Amino Transf (AST/SGOT) 67IU/L Alanine Aminotransferase (ALT/SGPT) 34IU/L Alkaline Phosphatase 117IU/L Total Protein 8.0g/dl Albumin 3.4g/dl Globulin 4.60g/dl Albumin/Globulin Ratio 0.73 Lipase 32U/L Bedside Urine pH (LAB) 5.0 Bedside Urine Protein (LAB) 1+ Bedside Urine Glucose (UA) Negative Bedside Urine Ketones (LAB) Negative Bedside Urine Blood Negative Bedside Urine Nitrite (LAB) Negative Bedside Urine Leukocyte Esterase (L Trace Lactic Acid Level 4.1mmol/L Current Medications Medications (Trade) Dose Ordered Sig/Renita Route PRN Reason Start Time Stop Time Status Last Admin Dose Admin Ondansetron HCl 4 mg 4 mg ONCE STAT IV 01/03/17 23:18 01/03/17 23:20 DC 01/04/17 00:07 Sodium Chloride 1,920 ml @ 1,920 mls/hr BOLUS X1 ONCE IV 01/04/17 01:00 01/04/17 01:59 DC 01/04/17 01:31 Vancomycin HCl 250 ml @ 125 mls/hr ONCE IVPB 01/04/17 01:00 01/04/17 02:59 DC 01/04/17 01:31 Meropenem/Sodium Chloride (Merrem 500mg/50 ml(Pmx)) 50 ml @ 100 mls/hr ONCE STAT IVPB 01/04/17 00:52 01/04/17 01:21 DC 01/04/17 01:30 Procedures/[place] [id number] Radiology Main Line: [phone] DIAGNOSTIC IMAGING REPORT Patient: MARISSA KOLB : 1935 Age: 81 Sex: M MR #: [id number] DOS: 01/03/17 2318 Ordering MD: CHANTEL ZAPATA MD Location: E/R Room/Bed: PROCEDURE: XR Chest. CLINICAL INDICATION: Abdominal Pain TECHNIQUE: Single frontal view of the chest was obtained COMPARISON: Chest radiograph dated September 10, 2015. FINDINGS: The heart is normal in size. Aortic calcifications are present. There are patchy consolidations seen throughout the right lung. Possible small patchy consolidations may also be in the left lung. There is no evidence of pneumothorax. Chronic-appearing right-sided rib fractures noted. Degenerative change of the spine and shoulder joints are present. IMPRESSION: 1. Diffuse patchy consolidations in the right lung and possible small patchy consolidations in the left lung. Findings are consistent with multifocal pneumonia in the correct clinical context. RPTAT:AAJJ Fannie Burton Physician Date Time Electronically viewed and signed by Fannie Burton Physician on 01/04/2017 00:28 QL/ CC: CHANTEL ZAPATA MD [place] [id number] Radiology Main Line: [phone] DIAGNOSTIC IMAGING REPORT Patient: MARISSA KOLB : 1935 Age: 81 Sex: M MR #: [id number] DOS: 01/03/17 2318 Ordering MD: CHANTEL ZAPATA MD Location: E/R Room/Bed: PROCEDURE: CT Abdomen and Pelvis without contrast. CLINICAL INDICATION: Abdominal pain. TECHNIQUE: A CT scan of the abdomen and pelvis was performed without intravenous contrast. Coronal and sagittal reformatted images were generated. Images were reviewed on a high-resolution PACS workstation. CTDIvol: 10.59 mGy. DLP: 1225.98 mGy-cm. One or more of the following dose reduction techniques were used: - Automated exposure control. - Adjustment of the mA and/or kV according to patient size. - Use of iterative reconstruction technique. COMPARISON: 06/27/2016 FINDINGS: There are patchy opacities in the right middle lobe and both lower lobes, right more than left. Evaluation of the abdominal and pelvic viscera is limited by the lack of oral and intravenous contrast. The liver is unremarkable. The gallbladder is normal in appearance. The common bile duct is not dilated. The spleen is not enlarged. There is fatty replacement of the pancreas. The adrenal glands are unremarkable. The kidneys are normal in size. There is no perinephric fat stranding. No hydronephrosis is seen. No urinary stone is identified. There is a small hiatal hernia. The small and large bowel are normal in caliber. There is no bowel wall thickening. There is a large volume of retained stool in the colon. The appendix is not identified. The urinary bladder is unremarkable. The pelvic organs are within normal limits. There are small bilateral fat containing inguinal hernias, right larger than left. No lymphadenopathy is identified. There is no ascites. No pneumoperitoneum is seen. There are mild arterial calcifications. There is severe degenerative arthrosis of the right hip joint. A 1.6 cm sclerotic lesion is identified in the left inferior pubic ramus, unchanged. There are old left rib fractures. IMPRESSION: 1. Patchy opacities in the right middle and lower lobes, suspicious for pneumonia. Additional patchy opacities in the left lower lobe could represent pneumonia or atelectasis. 2. No intra-abdominal inflammation, mass, or lymphadenopathy. 3. No obstructive uropathy or urinary stone. 4. Small hiatal hernia. 5. Large volume of retained stool in the colon. 6. The appendix is not identified. If there is concern for appendicitis, close clinical follow-up is recommended. 7. Small bilateral fat containing inguinal hernias, right larger than left. 8. Mild atherosclerotic arterial calcifications. 9. Severe degenerative arthrosis of the right hip joint. 10. Nonspecific 1.6 cm sclerotic lesion in the left inferior pubic ramus, unchanged. This could be further evaluated with contrast enhanced MRI if clinically warranted. RPTAT: HTAR .Chico Licona MD, Date Time Electronically viewed and signed by .Chico Licona MD, MD on 01/04/2017 01:32 .R/ CC: CHANTEL ZAPATA MD EKG: Read by emergency physician Rate/Rhythm: Sinus tachycardia 110 beats/min QRS, ST, T-waves: No ST elevation, no T inversion, first-degree AV block Impression: Abnormal EKG MEDICAL MAKING DECISION: The patient is a 81-year-old female, presenting with acute septic shock, acute pneumonia, acute kidney injury, acute hypokalemia, acute constipation. He was treated with Zofran 4 mg IV for nausea, normal saline 30 mL/kg IV, vancomycin IV, meropenem IV for acute septic shock due to acute pneumonia The differential diagnoses considered include but are not limited to pneumonia, empyema, UTI, pyelonephritis Admit MDM: Patient's infectious symptoms have not stabilized and the patient is at risk of rapid decompensation. The patient will be admitted for careful hydration, antibiotic therapy, and infectious source control. Severe Sepsis criteria: Infectious source: pna End organ damage indicated by: Lactate > 2.0 mmol/L Sepsis Management: Time of recognition of severe sepsis/septic shock: 1:50 am Within 3 hours of recognition: Blood cultures x 2 before broad-spectrum antibiotics: Yes 30 ml/kg NS bolus completed Initial lactate 4.1 Repeat lactate pending Septic Shock Assessment: Any lactic acid > 4.0 yes Persistent hypotension (SBP < 90 or 40 mmHg drop, MAP < 65) despite 30 mL/kg IV fluid bolusno Volume Re-assessment for Septic Shock (post 30 ml/kg bolus): Temp98.1, BP132/91, HR95, RR19, Pox100% on RA Heart regular rate & rhythm Lungs no crackles Skin Warm & dry Cap Refill less than 2 seconds Peripheral pulses radially present Persistent Hypotension Treatment: Comfort care no Central line no Vasopressor started No I considered further perfusion assessment with CVP measurement, SCVO2, bedside ultrasound volume assessment, passive leg raise, trial of further fluid bolus. And proceeded withIVF Critical Care: Critical care time 35 minutes excluding billable procedures Emergent fluid management while maintaining close respiratory support. Provision of immediate and broad-spectrum antibiotic therapy. Simultaneous assessment for possible sources in order to direct targeted therapy. Consideration for invasive and chemical support to prevent cardiopulmonary collapse. Departure Diagnosis: Primary Impression: Septic shock Additional Impressions: PNA (pneumonia) Acute kidney failure Hyperkalemia Constipation Anemia Condition: Stable Comments I discussed the findings with the patient. I discussed the patient with his physician Dr. Hernandez at 2 am who was made aware of the lab, the treatment, the patient condition. The patient is admitted to Tel Disclaimer: Inadvertent spelling and grammatical errors are likely due to EHR/ dictation software use and do not reflect on the overall quality of patient care. Also, please note that the electronic time recorded on this note does not necessarily reflect the actual time of the patient encounter. CHNATEL ZAPATA MD Jan 03, 2017 23:14
[2017-01-03] MEDS ORDERED: ONDANSETRON 4 MG INJ IV STA (23:18)
[2017-01-03 23:31] LABS: ABNORMAL IP MESSAGE 1; BASOPHIL # 0.1 10^3/ul (0.0-0.1); BASOPHILS % 0.2 % (0.0-2.0); EOSINOPHILS % 0.1 % (0.0-7.0); HEMATOCRIT 33.4 % (42.0-52.0); LYMPHOCYTES # 1.6 10^3/ul (0.8-2.9); LYMPHOCYTES % 6.9 % (15.0-51.0); MEAN CORPUSCULAR HEMOGLOBIN 26.5 pg (29.0-33.0); MEAN CORPUSCULAR HGB CONC 29.9 g/dl (32.0-37.0); MEAN CORPUSCULAR VOLUME 88.6 fl (82.0-101.0); MEAN PLATELET VOLUME 10.3 fl (7.4-10.4); MONOCYTE # 0.7 10^3/ul (0.3-0.9); NEUTROPHILS % 89.2 % (39.0-77.0); PLATELET COUNT 335 10^3/UL (140-415); POSITIVE DIFF @See below; RED BLOOD COUNT 3.77 10^6/ul (4.70-6.10); RED CELL DISTRIBUTION WIDTH 15.8 % (11.5-14.5); WHITE BLOOD COUNT 22.5 10^3/ul (4.8-10.8)
[2017-01-03 23:36] LABS: URINE BLOOD (Dip) POC Negative (NEGATIVE)
[2017-01-03 23:53] LABS: ALBUMIN 3.4 g/dl (3.3-4.9); ALBUMIN/GLOBULIN RATIO 0.73; BILIRUBIN,INDIRECT 0.1 mg/dl (0-1.1); BILIRUBIN,TOTAL 0.1 mg/dl (0.2-1.3); CALCIUM 9.6 mg/dl (8.4-10.2); CREATININE 1.5 mg/dl (0.61-1.24); POTASSIUM 5.3 mmol/L (3.5-5.1)
[2017-01-04] VITALS (10 sets, daily range): BP systolic 85–109; BP diastolic 50–66; PULSE 60–80; RESP 19–22; TEMP 98.3; Ht 182.9 cm; Wt 62.0 kg
--- NOTE | 2017-01-04 00:28 | RADRPT ---
PROCEDURE: XR Chest. CLINICAL INDICATION: Abdominal Pain TECHNIQUE: Single frontal view of the chest was obtained COMPARISON: Chest radiograph dated September 10, 2015. FINDINGS: The heart is normal in size. Aortic calcifications are present. There are patchy consolidations seen throughout the right lung. Possible small patchy consolidations may also be in the left lung. There is no evidence of pneumothorax. Chronic-appearing right-sided rib fractures noted. Degenerative change of the spine and shoulder jarod nts are present. IMPRESSION: 1. Diffuse patchy consolidations in the right lung and possible small patchy consolidations in the left lung. Findings are consistent with multifocal pneumonia in the correct clinical context. RPTAT:AAJJ Physician Alexander Date Time Electronically viewed and signed by Fannie Burton Physician on 01/04/2017 00:28 QL/
[2017-01-04] MEDS ORDERED: MEROPENEM 500MG/50 ML (PMX) 50 ML IVPB STA (00:52)
[2017-01-04] MEDS ORDERED: VANCOMYCIN 1 GM (PMX) 250 ML IVPB SCH (01:00)
[2017-01-04] MEDS ORDERED: SOD CHLORIDE 0.9% 1,920 ML IV ONE (01:00)
--- NOTE | 2017-01-04 01:33 | RADRPT ---
PROCEDURE: CT Abdomen and Pelvis without contrast. CLINICAL INDICATION: Abdominal pain. TECHNIQUE: A CT scan of the abdomen and pelvis was performed without intravenous contrast. Arreola l and sagittal reformatted images were generated. Images were reviewed on a high-resolution PACS wor kstation. CTDIvol: 10.59 mGy. DLP: 1225.98 mGy-cm. One or more of the following dose reduction techniques were used: - Automated exposure control. - Adjustment of the mA and/or kV according to patient size. - Use of iterative reconstruction technique. COMPARISON: 06/27/2016 FINDINGS: There are patchy opacities in the right middle lobe and both lower lobes, right more than left. Evaluation of the abdominal and pelvic viscera is limited by the lack of oral and intravenous contra st. The liver is unremarkable. The gallbladder is normal in appearance. The common bile duct is not dila hope. The spleen is not enlarged. There is fatty replacement of the pancreas. The adrenal glands are unremarkable. The kidneys are normal in size. There is no perinephric fat stranding. No hydronephrosis is seen. No urinary stone is identified. There is a small hiatal hernia. The small and large bowel are normal in caliber. There is no bowel wall thickening. There is a large volume of retained stool in the colon. The appendix is not identif ied. The urinary bladder is unremarkable. The pelvic organs are within normal limits. There are small paola ateral fat containing inguinal hernias, right larger than left. No lymphadenopathy is identified. There is no ascites. No pneumoperitoneum is seen. There are mild a rterial calcifications. There is severe degenerative arthrosis of the right hip joint. A 1.6 cm sclerotic lesion is identifi ed in the left inferior pubic ramus, unchanged. There are old left rib fractures. IMPRESSION: 1. Patchy opacities in the right middle and lower lobes, suspicious for pneumonia. Additional patch y opacities in the left lower lobe could represent pneumonia or atelectasis. 2. No intra-abdominal inflammation, mass, or lymphadenopathy. 3. No obstructive uropathy or urinary stone. 4. Small hiatal hernia. 5. Large volume of retained stool in the colon. 6. The appendix is not identified. If there is concern for appendicitis, close clinical follow-up is recommended. 7. Small bilateral fat containing inguinal hernias, right larger than left. 8. Mild atherosclerotic arterial calcifications. 9. Severe degenerative arthrosis of the right hip joint. 10. Nonspecific 1.6 cm sclerotic lesion in the left inferior pubic ramus, unchanged. This could be f urther evaluated with contrast enhanced MRI if clinically warranted. RPTAT: HTAR .Chico Licona MD, MD Date Time Electronically viewed and signed by .Chico Licona MD, MD on 01/04/2017 01:32 .R/
[2017-01-04 04:31] LABS: INR 1.08; PT RATIO 1.1
[2017-01-04 04:32] LABS: PARTIAL THROMBOPLASTIN TIME 35.8 Sec (25.0-35.0)
[2017-01-04] MEDS: DEXTROSE 5%-0.45% NACL 1,000 ML IV SCH (10:49)
--- NOTE | 2017-01-04 11:20 | HP ---
DATE OF ADMISSION: 01/04/2017 CHIEF COMPLAINT: Nausea, vomiting. HISTORY OF PRESENT ILLNESS: This is an 81-year-old male with a past medical history of coronary art magaly disease, history of peripheral neuropathy, history of Crohn's disease, history of hiatal hernia, history of aspiration pneumonia, history of back pain, history of Clostridium difficile, who presen hope to [facility] approximately 1 month ago for severe sepsis secondary to urinary tract infection and respiratory failure secondary to pneumonia. The patient at that time was treat ed with IV antibiotics, clinically improved and was subsequently discharged to his board and care. The patient now presents to [facility] after having multiple bouts of nausea, vomi ting at his [facility] and care. The patient, upon arrival to the emergency room, had laboratory data dr aiken, which showed a white count of 22,000, a BUN of 57, creatinine 1.50. The patient had a chest x- ray which showed patchy consolidation in the right lung and patchy consolidation left lung. Finding s consistent with multifocal pneumonia as well as a CT scan of the abdomen and pelvis which showed p atchy opacities in the lungs. No intraabdominal inflammation was noted, no obstructive uropathy not ed. Positive constipation, atherosclerosis and sclerotic lesions in the ramus. The patient in the emergency room was given IV fluids, IV antibiotics and admitted to telemetry for further evaluation. Upon my evaluation of the patient at this time, he is currently stable. Denies any active hemoptysi s, hematemesis or hematochezia. PAST MEDICAL HISTORY: As stated above, history of coronary artery disease, history of Crohn's disea se, history of hernia, history of neuropathy, history of Clostridium difficile. PAST SURGICAL HISTORY: Status post cardiac catheterization, abdominal surgery. FAMILY HISTORY: Noncontributory. SOCIAL HISTORY: Lives at assisted living. ALLERGIES: THE PATIENT IS ALLERGIC TO PENICILLIN. MEDICATIONS: Have been reviewed and reconciled. REVIEW OF SYSTEMS: A 14-point review of systems was conducted. Pertinent positives in HPI, otherwi se negative. PHYSICAL EXAMINATION: VITAL SIGNS: Blood pressure is 120/76, respirations 16, pulse 76, temperature 98.7. HEENT: Head is normocephalic. Pupils are reactive to light. NECK: Supple. HEART: Regular rate. LUNGS: Show diminished breath sounds at the base. Positive rhonchi. ABDOMEN: Soft, nontender to palpation. No rebound or guarding. EXTREMITIES: Negative for clubbing, cyanosis, no edema. DERMATOLOGIC: No rashes. MUSCULOSKELETAL: No joint effusions. The patient has noted wound. NEUROLOGIC: Limited exam, but no obvious focal deficits. LABORATORY DATA: Shows a white count 22.5, hemoglobin 10.0, platelet count 335. Sodium 139, potass ium 5.3, BUN 57, creatinine 1.50. Lactic acid is 1.3. IMAGING STUDIES: As stated in HPI. ASSESSMENT AND PLAN: This is an 81-year-old male who presents with: 1. Severe sepsis secondary to pneumonia. The patient's chest x-ray, CT scan shows multifocal infil trates. The patient's elevated white count consistent with infection and pneumonia. Plan at this p oint is to continue current antibiotic therapy, meropenem. We will follow blood cultures, urine cul tures. An ID consult was placed with Dr. Arango for evaluation. We will also place a pulmonary con sult with Dr. Dalton. 2. Acute respiratory failure secondary to multifocal pneumonia. The patient is clinically stable o n nasal cannula, we will continue. We will follow up with pulmonary. Will give nebulizer therapy as needed. 3. Nonoliguric acute kidney injury with a previous baseline creatinine of 0.8 mg/dL. Etiology is l ikely secondary to hemodynamics, sepsis. Plan is to check urinalysis with microanalysis. Check uri ne electrolytes. Continue gentle IV hydration. Would otherwise continue supportive care, renally d ose all medications, avoid nephrotoxins. 4. Hyperkalemia secondary to acute kidney injury. We will continue to monitor. Continue gentle IV hydration. We will repeat a renal panel. 5. Dysphagia. We will place a speech therapy evaluation, as the patient has a possible history of aspiration. 6. Nausea, vomiting. Etiology is unclear, presumed to be secondary to sepsis, pneumonia. We will monitor closely. We will continue the patient on PPI. 7. Acute encephalopathy and dementia. Etiology is toxic metabolic. Continue to monitor. Continue to treat underlying sepsis. 8. Lactic acidosis secondary to sepsis. Continue current treatment plan. 9. Anemia. Monitor hemoglobin and hematocrit levels. 10. Mineral bone disorder. Monitor calcium and phosphorus levels. 11. Decubitus wound. Continue wound care. Place a wound care consult. 12. History of coronary artery disease. Continue medical management. 13. Neuropathy. Continue Lyrica. 14. Depression, continued duloxetine. 15. History of Crohn's disease. Continue to monitor. 16. Gastrointestinal and deep venous thrombosis prophylaxis. Continue proton pump inhibitor and Lo venox. Please note I spent up to 25 minutes face to face time with the patient, discussing code status. Th e patient is FULL CODE. Dictated By: LENNIE ECHOLS DO NR/NTS Conf#: [id number] DID#: [id number]
[2017-01-04 11:41] LABS: BASOPHIL # 0.1 10^3/ul (0.0-0.1); BASOPHILS % 0.4 % (0.0-2.0); EOSINOPHILS # 0.1 10^3/ul (0.0-0.5); HEMATOCRIT 26.2 % (42.0-52.0); HEMOGLOBIN 8.3 g/dl (14.0-18.0); LYMPHOCYTES # 1.7 10^3/ul (0.8-2.9); MEAN CORPUSCULAR HEMOGLOBIN 27.6 pg (29.0-33.0); MEAN CORPUSCULAR HGB CONC 31.7 g/dl (32.0-37.0); MONOCYTE # 0.7 10^3/ul (0.3-0.9); MONOCYTES % 4.9 % (0.0-11.0); NEUTROPHIL # 11.2 10^3/ul (1.6-7.5); NEUTROPHILS % 81.1 % (39.0-77.0); PLATELET COUNT 300 10^3/UL (140-415); RED BLOOD COUNT 3.01 10^6/ul (4.70-6.10); RED CELL DISTRIBUTION WIDTH 15.9 % (11.5-14.5); WHITE BLOOD COUNT 13.8 10^3/ul (4.8-10.8)
[2017-01-04 12:03] LABS: CALCIUM 8.4 mg/dl (8.4-10.2); CREATININE 1.19 mg/dl (0.61-1.24); POTASSIUM 4.6 mmol/L (3.5-5.1)
[2017-01-04] MEDS ORDERED: PENDING SANTYL ORDER FOR WOUND CARE XX PRN (13:00)
[2017-01-04] MEDS: MEROPENEM 500MG/50 ML (PMX) 50 ML IVPB SCH ×2 (13:11→22:17)
--- NOTE | 2017-01-04 13:56 | CONS ---
DATE OF ADMISSION: 01/04/2017 DATE OF CONSULTATION: 01/04/2017 INFECTIOUS DISEASE CONSULT REASON FOR CONSULTATION: Antibiotic management. HISTORY OF PRESENT ILLNESS: Diaz Cortes is an 81-year-old male with a number of problems who is be ing seen to rule out sepsis. His past problems include: 1. Coronary artery disease. 2. Peripheral neuropathy. 3. Crohn's disease. 4. History of hiatal hernia. 5. Dementia. 6. Depression. 7. History of abdominal surgery. 8. ALLERGIES TO PENICILLIN. 9. Chronic encephalopathy along with his dementia. 10. History of pneumonia. 11. Sinus bradycardia. 12. History of Clostridium difficile. Acutely, the patient comes in with intermittent cough with nausea, vomiting multiple times on the 9t h associated with constipation. He denies fever or chills. He does not smoke or drink. PAST MEDICAL HISTORY: Operations as outlined. FAMILY HISTORY: Noncontributory. SOCIAL HISTORY: As noted does not smoke, drink or abuse drugs. ALLERGIES: NONE TO PENICILLIN, SULFA OR FOODS. MEDICATIONS: Per chart. REVIEW OF SYSTEMS: As per HPI. PHYSICAL EXAMINATION: GENERAL: The patient is an elderly appearing male who is chronically ill, in no acute distress. VITAL SIGNS: Stable. He is afebrile. SKIN: Without generalized rash. HEENT: Within normal limits. NECK: Supple. LYMPH NODES: None palpable. CHEST: Decreased breath sounds at the bases. HEART: Without murmur or gallop. ABDOMEN: Soft, nontender, without organosplenomegaly or masses. EXTREMITIES: Without cyanosis, clubbing, or edema. RECTAL AND GENITAL: Deferred. NEUROLOGIC: No focal neurological abnormalities. ANCILLARY LABORATORY DATA: White count on admission was 22.5, H and H of 10 and 33.4, platelet coun t 335,000. BUN and creatinine 57/1.5. IMPRESSION AND PLAN: The patient was begun on vancomycin and meropenem. His urine was negative for ketones, nitrite and he had trace leukocyte esterase. His lactic acid was elevated at 4.1, BUN and creatinine as noted was 57/1.5. Liver function tests were within normal limits. His chest x-ray s howed diffuse patchy consolidation in the right lung and possible small patchy consolidations in the left lung findings consistent with multifocal pneumonia in the correct clinical context. A CT scan of the abdomen and pelvis showed patchy opacity in the right middle and lower lobes suspicious for pneumonia, additional patchy opacities in the left lower lobe. No intraabdominal inflammation, mass , or lymphadenopathy, large volume of retained stool. Appendix not identified, small bilateral fat containing inguinal hernias, right larger than left. Nonspecific 1.6 cm sclerotic lesions in the le ft inferior pubic ramus. The patient comes in with bilateral pneumonia, probably aspiration. He is currently on vancomycin a nd meropenem. We will await his culture reports. I will dictate my findings to the hospitalist. Dictated By: DANIEL DOMINGO MD, JD/SONIA Conf#: [id number] DID#: [id number]
--- NOTE | 2017-01-04 16:44 | CONS ---
Date/Time of Note Date/Time of Note DATE: 01/04/17 TIME: 16:34 Assessment/Plan Assessment/Plan Chief Complaint/Hosp Course 1. Sepsis 2. multifocal pneumonia: ? aspiration 3. CAD 4. Anemia 5. dysphagia 6. N/V 7/ HX HTN: currently stable. 8. hx PCI 9/ Encephalopathy 10. hx Dementia Recommendations: Antibiotic is being managed as per ID recommendation. Patient is currently not on antiplatelet agent due to his worsening anemia. All the p.o. medication on hold now due to concern about aspiration. Renal function has improved with IV fluid. Will defer to renal/internal medicine team for management. Echocardiogram done last month has showed normal systolic function. For now we will continue with conservative cardiac medical therapy. Thank you for his referral. I will continue to follow along with you. DEE ALVES MD [facility] Problems: Consultation Date/Type/Reason Admit Date/Time Jan 04, 2017 at 01:59 Date of Consultation: Jan 04, 2017 Type of Consultation: cardiology Reason for Consultation CAD, tachycardia. Referring Provider: LENNIE ECHOLS of Present Illness CC: N/V altered LOC, COUGH. HPI: Thank you for his referral. History was obtained from discussion with caregiver , discussion with the physicians and staff, and from extensive review of the old chart. This is an 81-year-old gentleman with multiple complicated medical history who was admitted from his boarding care because of above complaints. According to the caregiver over the past 2 days patient has had productive cough. He has been also confused and altered. He has not been able to eat anything and has had nausea vomiting over the past few days. Because of mostly his nausea vomiting he was brought into the emergency room was noted to have sepsis. Patient was also tachycardic on admission. He had acute kidney injury and acute renal failure. He has a history of coronary artery disease for which I was kindly asked to evaluate and treat. Patient currently is nonverbal does not provide any history to me. No report of chest pain or pressure no reports of palpitation. Currently patient is kept n.p.o. due to concern about aspiration pneumonitis. His heart rate has improved significantly with IV fluid and hydration now. His creatinine and renal function also has improved as well. pt was also recently admitted to hospital with sepsis and shock. PAST MEDICAL HISTORY: history of coronary artery disease, S/P PCI about 10 years ago. history of neuropathy, history of Crohn's disease, history of hiatal hernia. memory impairment Hypertension Dyslipidemia PAST SURGICAL HISTORY: History of cardiac catheterization/ PCI. The patient also has had abdominal surgery. FAMILY HISTORY: No reported early coronary artery disease SOCIAL HISTORY: Lives at assisted living facility. No tobacco alcohol or drug use ALLERGIES: PENICILLIN. MEDICATIONS: Have been reviewed ROS: as above only. he denies all others. Past Surgical History Past Surgical Hx: angioplasty Social History Smoking Status: Never smoker Exam/Review of Systems Vital Signs Vitals Vital Signs Date Time Temp Pulse Resp B/P Pulse Ox O2 Delivery O2 Flow Rate FiO2 01/04/17 15:25 98.3 20 20 108/66 97 01/04/17 09:15 3.0 01/04/17 07:30 Nasal Cannula Exam General: no acute distress. elderly thin man HEENT: NC/AT.eyes are closed. NECK: NO JVD. no stridor. CV: RRR. systolic murmur; no gallop or rubs. PULM: no wheezing . + diffuse rhonchi. GI: SOFT, NT, ND, no rebound or guarding Extremity: trace B/L LE edema. no clubbing. neuro: does not respond to my questions. appears lethargic/ sleeping Psych: calm and pleasant rectal: deferred : normal male ECG 01/04/17 reviewed Sinus tachy. CXR: 1. Diffuse patchy consolidations in the right lung and possible small patchy consolidations in the left lung. Findings are consistent with multifocal pneumonia in the correct clinical context. echo nov 2016 reviewed: 1. Normal left ventricular systolic function. Normal left ventricular cavity size. Mild concentric left ventricular hypertrophy. Ejection fraction is visually estimated at 65 %. Tissue Doppler/Mitral Doppler indices are consistent with impaired relaxation (Stage I diastolic dysfunction). 2. Mitral valve leaflets appear mildly thickened. Mild mitral annular calcification. Mild mitral valve regurgitation. 3. Normal appearance of the aortic valve. No significant aortic stenosis or insufficiency. 4. Normal appearance and function of the tricuspid valve with trace physiologic regurgitation. Normal right ventricular systolic pressure. Estimated peak PA systolic pressure 21 mmHg. Results Result Diagram: 01/04/17 1125 01/04/17 1125 Results 24 hrs Laboratory Tests Test 01/03/17 23:15 01/03/17 23:33 01/04/17 01:05 01/04/17 04:00 White Blood Count 22.5 #H Red Blood Count 3.77 L Hemoglobin 10.0 L Hematocrit 33.4 L Mean Corpuscular Volume 88.6 Mean Corpuscular Hemoglobin 26.5 L Mean Corpuscular Hemoglobin Concent 29.9 L Red Cell Distribution Width 15.8 H Platelet Count 335 Mean Platelet Volume 10.3 Neutrophils % 89.2 H Lymphocytes % 6.9 L Monocytes % 3.0 Eosinophils % 0.1 Basophils % 0.2 Nucleated Red Blood Cells % 0.0 Neutrophils # 20.0 H Lymphocytes # 1.6 Monocytes # 0.7 Eosinophils # 0.0 Basophils # 0.1 Nucleated Red Blood Cells # 0.0 Sodium Level 139 Potassium Level 5.3 H Chloride Level 102 Carbon Dioxide Level 25 Anion Gap 17 H Blood Urea Nitrogen 57 H Creatinine 1.50 H Glucose Level 105 Calcium Level 9.6 Total Bilirubin 0.1 L Direct Bilirubin 0.00 Indirect Bilirubin 0.1 Aspartate Amino Transf (AST/SGOT) 67 H Alanine Aminotransferase (ALT/SGPT) 34 Alkaline Phosphatase 117 Total Protein 8.0 Albumin 3.4 Globulin 4.60 H Albumin/Globulin Ratio 0.73 Lipase 32 Bedside Urine pH (LAB) 5.0 Bedside Urine Protein (LAB) 1+ H Bedside Urine Glucose (UA) Negative Bedside Urine Ketones (LAB) Negative Bedside Urine Blood Negative Bedside Urine Nitrite (LAB) Negative Bedside Urine Leukocyte Esterase (L Trace H Lactic Acid Level 4.1 *H 1.6 Prothrombin Time 14.0 Prothrombin Time Ratio 1.1 INR International Normalized Ratio 1.08 Activated Partial Thromboplast Time 35.8 H Test 01/04/17 05:27 01/04/17 11:25 Lactic Acid Level 1.3 White Blood Count 13.8 #H Red Blood Count 3.01 #L Hemoglobin 8.3 L Hematocrit 26.2 #L Mean Corpuscular Volume 87.0 Mean Corpuscular Hemoglobin 27.6 L Mean Corpuscular Hemoglobin Concent 31.7 L Red Cell Distribution Width 15.9 H Platelet Count 300 Mean Platelet Volume 10.0 Neutrophils % 81.1 H Lymphocytes % 12.0 L Monocytes % 4.9 Eosinophils % 1.0 Basophils % 0.4 Nucleated Red Blood Cells % 0.0 Neutrophils # 11.2 H Lymphocytes # 1.7 Monocytes # 0.7 Eosinophils # 0.1 Basophils # 0.1 Nucleated Red Blood Cells # 0.0 Sodium Level 141 Potassium Level 4.6 Chloride Level 106 Carbon Dioxide Level 29 Anion Gap 11 Blood Urea Nitrogen 47 H Creatinine 1.19 Glucose Level 117 Calcium Level 8.4 Medications Medications Current Medications Duloxetine HCl (Cymbalta) 60 mg DAILY PO ; Start 01/05/17 at 09:00 Polyethylene Glycol (Miralax) 17 gm DAILY PO ; Start 01/05/17 at 09:00 Trazodone HCl (Desyrel) 50 mg QHS PO ; Start 01/04/17 at 21:00 Triamcinolone Acetonide (Kenalog 0.1% Cr) 1 applic DAILY TOP ; Start 01/05/17 at 09:00; Status UNV Pantoprazole 40 mg 40 mg DAILY@06 PO ; Start 01/05/17 at 06:00 Dextrose/Sodium Chloride 1,000 ml @ 50 mls/hr Q20H IV Last administered on t 10:49; Admin Dose 50 MLS/HR; Start 01/04/17 at 10:30 Meropenem/Sodium Chloride (Merrem 500mg/50 ml(Pmx)) 50 ml @ 200 mls/hr Q8 IVPB Last administered on 01/04/17t 13:11; Admin Dose 200 MLS/HR; Start 01/04/17 at 11:00 Influenza Virus Vaccine (Fluzone) 0.5 ml ONCE ONCE IM* ; Start 01/06/17 at 11: 00; Stop 01/06/17 at 11:01 Miscellaneous Information (Pending [facility] Order For Wound Care) This patient manuel... PRN PRN XX WOUND CARE; Start 01/04/17 at 13:00 DEE ALVES MD Jan 04, 2017 16:44
--- NOTE | 2017-01-04 18:32 | CONS ---
DATE OF ADMISSION: 01/04/2017 DATE OF CONSULTATION: PULMONARY CONSULTATION REASON FOR CONSULT: Chronic respiratory failure. HISTORY OF PRESENT ILLNESS: This is an 81-year-old gentleman with multiple medical problems includi ng vent-dependent respiratory failure, hypertension, hyperlipidemia, admitted with nausea, vomiting, abdominal discomfort, found to have urinary tract infection and possible underlying pneumonia treat ed a month ago. At [facility] facility, he has had ongoing nausea, vomiting, leukocytosis. [facility] x-ray demonstrating worsening right-sided infiltrate. On admission here, patient had significant leukocytosis, white count was 22.5. Chest x-ray demonstrated right and left-sided infiltrates. CT abdomen and pelvis demonstrated pneumonic changes, stool in the colon. PAST MEDICAL HISTORY: Crohn disease, hypertension, hyperlipidemia, coronary artery disease. MEDICATIONS: Per chart. ALLERGIES: PENICILLIN. SOCIAL HISTORY: Nonsmoker, no alcohol, no history of drug use. FAMILY HISTORY: Noncontributory. SYSTEMS REVIEW: A 12-point review of systems was negative other than that mentioned above. PHYSICAL EXAMINATION: GENERAL: Elderly-appearing gentleman, appears comfortable at rest, no acute distress. VITAL SIGNS: Currently afebrile, pulse is 60, blood pressure 106/66, O2 saturation 96% on 3 L nasal cannula. NECK: Supple. No JVD or lymphadenopathy. CARDIAC: S1, S2, no added sounds or murmurs. CHEST: Diminished air entry bilaterally. ABDOMEN: Soft, nontender. No guarding or rebound. EXTREMITIES: No cyanosis, clubbing, or edema. NEUROLOGIC: Generalized weakness. LABORATORY DATA: White count initially 22, now 13.8, hemoglobin 8.3. BUN 41, creatinine 1.19. Lac tic acid initially 4.1, now 1.3, INR 1.08. Urinalysis unremarkable. Chest x-ray abdomen findings as above. IMPRESSION: 1. Likely aspiration pneumonia versus healthcare-associated pneumonia. 2. Resolving leukocytosis. 3. History of Crohn disease with chronic constipation. PLAN: 1. The patient will require continued current antibiotics. 2. Aspiration precautions. 3. Stool softeners and/or disimpaction. 4. DVT and GI prophylaxis. 5. I would recommend repeat chest x-ray in 2 to 3 days' time to ensure improvement in infiltrates, as clinically he appears to be turning around. Dictated By: BINH AGUSTIN/SONIA Conf#: [id number] [facility]#: [id number] CC: EBER LOVING MD;*[facility]*
[2017-01-04] MEDS ORDERED: NON-FORMULARY/PATIENT OWN MED (Melatonin 5 MG) PO SCH (21:00)
[2017-01-04] MEDS: traZODone 50 MG TAB PO SCH (22:18)
[2017-01-05] VITALS (13 sets, daily range): BP systolic 103–128; BP diastolic 52–86; PULSE 62–90; RESP 18–20
[2017-01-05] MEDS: PANTOPRAZOLE (EC) 40 MG TAB PO SCH (05:16)
[2017-01-05] MEDS: DEXTROSE 5%-0.45% NACL 1,000 ML IV SCH (05:16)
[2017-01-05] MEDS: MEROPENEM 500MG/50 ML (PMX) 50 ML IVPB SCH ×3 (05:17→22:46)
[2017-01-05 06:17] LABS: BASOPHILS % 0.3 % (0.0-2.0); EOSINOPHILS # 0.3 10^3/ul (0.0-0.5); EOSINOPHILS % 2.6 % (0.0-7.0); HEMATOCRIT 28.1 % (42.0-52.0); HEMOGLOBIN 8.6 g/dl (14.0-18.0); LYMPHOCYTES # 1.6 10^3/ul (0.8-2.9); LYMPHOCYTES % 13.2 % (15.0-51.0); MEAN CORPUSCULAR HEMOGLOBIN 26.5 pg (29.0-33.0); MEAN CORPUSCULAR HGB CONC 30.6 g/dl (32.0-37.0); MEAN CORPUSCULAR VOLUME 86.5 fl (82.0-101.0); MONOCYTE # 0.5 10^3/ul (0.3-0.9); MONOCYTES % 4.6 % (0.0-11.0); NEUTROPHIL # 9.2 10^3/ul (1.6-7.5); NEUTROPHILS % 78.9 % (39.0-77.0); PLATELET COUNT 311 10^3/UL (140-415); RED BLOOD COUNT 3.25 10^6/ul (4.70-6.10); RED CELL DISTRIBUTION WIDTH 15.8 % (11.5-14.5); WHITE BLOOD COUNT 11.7 10^3/ul (4.8-10.8)
[2017-01-05 06:55] LABS: CALCIUM 8.3 mg/dl (8.4-10.2); CREATININE 0.99 mg/dl (0.61-1.24); MAGNESIUM 1.9 mg/dl (1.7-2.5); PHOSPHORUS 3.6 mg/dl (2.5-4.9); POTASSIUM 4.6 mmol/L (3.5-5.1)
[2017-01-05 07:16] LABS: ADD UMIC YES; UR ASCORBIC ACID NEGATIVE (NEGATIVE); UR BILIRUBIN (Dip) NEGATIVE (NEGATIVE); UR BLOOD (Dip) NEGATIVE (NEGATIVE); UR CLARITY CLEAR (CLEAR); UR COLOR YELLOW (YELLOW); UR GLUCOSE (Dip) NEGATIVE (NEGATIVE); UR KETONES (Dip) NEGATIVE (NEGATIVE); UR LEUKOCYTE ESTERASE (Dip) 2+ Leu/ul (NEGATIVE); UR NITRITE (Dip) NEGATIVE (NEGATIVE); UR RBC 1 /HPF (0-5); UR SPECIFIC GRAVITY (Dip) 1.012 (1.003-1.030); UR TOTAL PROTEIN (Dip) NEGATIVE (NEGATIVE); UR UROBILINOGEN (Dip) NEGATIVE (NEGATIVE)
[2017-01-05] MEDS: POLYETHYLENE GLYCOL 17 GM PACKET PO SCH (08:48)
[2017-01-05] MEDS: DULOXETINE 30 MG CAP DR PO SCH (08:48)
--- NOTE | 2017-01-05 08:50 | RADRPT ---
PROCEDURE: XR Chest. CLINICAL INDICATION: Shortness of breath. TECHNIQUE: Single frontal view. COMPARISON: 01/04/2017. FINDINGS: There is patchy consolidation throughout the right lung and at the left lung base consistent with pn eumonia, unchanged. The heart size is normal. There is no pleural effusion or pneumothorax. There are old healed right rib fractures. IMPRESSION: 1. No change from the 01/04/2017 chest radiograph. RPTAT: QQ .Luis Thomas MD, MD Date Time Electronically viewed and signed by .Luis Thomas MD, MD on 01/05/2017 08:50 .R/
[2017-01-05] MEDS ORDERED: TRIAMCINOLONE ACET 0.1% 15 GM CR TOP SCH (09:00)
--- NOTE | 2017-01-05 10:20 | CONS ---
Date/Time of Note Date/Time of Note DATE: 01/05/17 TIME: : Consult Date/Type/Reason Admit Date/Time Jan 04, 2017 at 01:59 Initial Consult Date 01/04/17 Type of Consultation: imneph Ordering Provider: LENNIE ECHOLS This is an 81-year-old male with a past medical history of coronary artery disease, history of peripheral neuropathy, history of Crohn's disease, history of hiatal hernia, history of aspiration pneumonia, history of back pain, history of Clostridium difficile, who presented to [facility] approximately 1 month ago for severe sepsis secondary to urinary tract infection and respiratory failure secondary to pneumonia. The patient at that time was treated with IV antibiotics, clinically improved and was subsequently discharged to his board and care. The patient now presents to [facility] after having multiple bouts of nausea, vomiting at his board and care. The patient, upon arrival to the emergency room, had laboratory data drawn, which showed a white count of 22,000, a BUN of 57, creatinine 1.50. The patient had a chest x-ray which showed patchy consolidation in the right lung and patchy consolidation left lung. Findings consistent with multifocal pneumonia as well as a CT scan of the abdomen and pelvis which showed patchy opacities in the lungs. No intraabdominal inflammation was noted, no obstructive uropathy noted. Positive constipation, atherosclerosis and sclerotic lesions in the ramus. The patient in the emergency room was given IV fluids, IV antibiotics and admitted to telemetry for further evaluation. Denies any active hemoptysis, hematemesis or hematochezia. PAST MEDICAL HISTORY: As stated above, history of coronary artery disease, history of Crohn's disease, history of hernia, history of neuropathy, history of Clostridium difficile. REVIEW OF SYSTEMS: A 14-point review of systems was conducted. Pertinent positives in HPI, otherwise negative. PHYSICAL EXAMINATION: HEENT: Head is normocephalic. Pupils are reactive to light. NECK: Supple. HEART: Regular rate. LUNGS: Show diminished breath sounds at the base. Positive rhonchi. ABDOMEN: Soft, nontender to palpation. No rebound or guarding. EXTREMITIES: Negative for clubbing, cyanosis, no edema. DERMATOLOGIC: No rashes. MUSCULOSKELETAL: No joint effusions. The patient has noted wound. NEUROLOGIC: Limited exam, but no obvious focal deficits. Objective Vital Signs Date Time Temp Pulse Resp B/P Pulse Ox O2 Delivery O2 Flow Rate FiO2 01/05/17 09:26 Nasal Cannula 3.0 01/05/17 08:40 78 01/05/17 07:44 97.6 20 121/56 98 Intake and Output 01/04/17 01/04/17 01/05/17 15:00 23:00 07:00 Intake Total 50 ml 100 ml Output Total 400 ml Balance 50 ml -300 ml Results/Medications Result Diagram: 01/05/1755 01/05/17 0555 Results 24 hrs Laboratory Tests Test 01/04/17 11:25 01/05/17 04:45 01/05/17 05:55 White Blood Count 13.8 #H 11.7 H Red Blood Count 3.01 #L 3.25 L Hemoglobin 8.3 L 8.6 L Hematocrit 26.2 #L 28.1 L Mean Corpuscular Volume 87.0 86.5 Mean Corpuscular Hemoglobin 27.6 L 26.5 L Mean Corpuscular Hemoglobin Concent 31.7 L 30.6 L Red Cell Distribution Width 15.9 H 15.8 H Platelet Count 300 311 Mean Platelet Volume 10.0 10.0 Neutrophils % 81.1 H 78.9 H Lymphocytes % 12.0 L 13.2 L Monocytes % 4.9 4.6 Eosinophils % 1.0 2.6 Basophils % 0.4 0.3 Nucleated Red Blood Cells % 0.0 0.0 Neutrophils # 11.2 H 9.2 H Lymphocytes # 1.7 1.6 Monocytes # 0.7 0.5 Eosinophils # 0.1 0.3 Basophils # 0.1 0.0 Nucleated Red Blood Cells # 0.0 0.0 Sodium Level 141 141 Potassium Level 4.6 4.6 Chloride Level 106 106 Carbon Dioxide Level 29 31 Anion Gap 11 9 Blood Urea Nitrogen 47 H 36 #H Creatinine 1.19 0.99 Glucose Level 117 95 Calcium Level 8.4 8.3 L Urine Color YELLOW Urine Clarity CLEAR Urine pH 6.0 Urine Specific [place] 1.012 Urine Ketones NEGATIVE Urine Nitrite NEGATIVE Urine Bilirubin NEGATIVE Urine Urobilinogen NEGATIVE Urine Leukocyte Esterase 2+ H Urine Microscopic RBC 1 Urine Microscopic WBC 3 Urine Hemoglobin NEGATIVE Urine Random Creatinine 47.27 Urine Random Sodium 150 H Urine Glucose NEGATIVE Urine Total Protein 12.0 H Phosphorus Level 3.6 Magnesium Level 1.9 Medications Current Medications Duloxetine HCl (Cymbalta) 60 mg DAILY PO Last administered on 01/05/17 08:48 ; Admin Dose 60 MG; Start 01/05/17 at 09:00 Polyethylene Glycol (Miralax) 17 gm DAILY PO Last administered on 01/05/17 08 :48; Admin Dose 17 GM; Start 01/05/17 at 09:00 Trazodone HCl (Desyrel) 50 mg QHS PO Last administered on 01/04/17 22:18; Admin Dose 50 MG; Start 01/04/17 at 21:00 Triamcinolone Acetonide (Kenalog 0.1% Cr) 1 applic DAILY TOP ; Start 01/05/17 at 09:00; Status UNV Pantoprazole 40 mg 40 mg DAILY@06 PO Last administered on 01/05/17 05:16; Admin Dose 40 MG; Start 01/05/17 at 06:00 Dextrose/Sodium Chloride 1,000 ml @ 50 mls/hr Q20H IV Last administered on 05:16; Admin Dose 50 MLS/HR; Start 01/04/17 at 10:30 Meropenem/Sodium Chloride (Merrem 500mg/50 ml(Pmx)) 50 ml @ 200 mls/hr Q8 IVPB Last administered on 01/05/17 05:17; Admin Dose 200 MLS/HR; Start 01/04/17 at 11:00 Influenza Virus Vaccine (Fluzone) 0.5 ml ONCE ONCE IM* ; Start 01/06/17 at 11: 00; Stop 01/06/17 at 11:01 Miscellaneous Information (Pending [facility] Order For Wound Care) This patient manuel... PRN PRN XX WOUND CARE; Start 01/04/17 at 13:00 Assessment/Plan Chief Complaint/Hosp Course 1. Severe sepsis secondary to pneumonia. The patient's chest x-ray, CT scan shows multifocal infiltrates. The patient's elevated white count consistent with infection and pneumonia. Plan at this point is to continue current antibiotic therapy, meropenem. We will follow blood cultures, urine cultures. An ID consult was placed with Dr. Arango for evaluation. We will also place a pulmonary consult with Dr. Dalton. 2. Acute respiratory failure secondary to multifocal pneumonia. The patient is clinically stable on nasal cannula, we will continue. We will follow up with pulmonary. Will give nebulizer therapy as needed. 3. Nonoliguric acute kidney injury with a previous baseline creatinine of 0.8 mg/dL. Etiology is likely secondary to hemodynamics, sepsis. improved with gentle IV hydration. Would otherwise continue supportive care, renally dose all medications, avoid nephrotoxins. 4. Hyperkalemia secondary to acute kidney injury. We will continue to monitor. Continue gentle IV hydration. improved. 5. Dysphagia. We will place a speech therapy evaluation, as the patient has a possible history of aspiration. 6. Nausea, vomiting. Etiology is unclear, presumed to be secondary to sepsis, pneumonia. We will monitor closely. We will continue the patient on PPI. 7. Acute encephalopathy and dementia. Etiology is toxic metabolic. Continue to monitor. Continue to treat underlying sepsis. 8. Lactic acidosis secondary to sepsis. Continue current treatment plan. 9. Anemia. Monitor hemoglobin and hematocrit levels. 10. Mineral bone disorder. Monitor calcium and phosphorus levels. 11. Decubitus wound. Continue wound care. Place a wound care consult. 12. History of coronary artery disease. Continue medical management. 13. Neuropathy. Continue Lyrica. 14. Depression, continued duloxetine. 15. History of Crohn's disease. Continue to monitor. 16. Gastrointestinal and deep venous thrombosis prophylaxis. Continue proton pump inhibitor and Lovenox. Problems: PAM GREEN MD Jan 05, 2017 10:20
--- NOTE | 2017-01-05 13:14 | CONS ---
Date/Time of Note Date/Time of Note DATE: 01/05/17 TIME: 13:12 Consult Date/Type/Reason Admit Date/Time Jan 04, 2017 at 01:59 Initial Consult Date 01/04/17 Type of Consultation: pulm Ordering Provider: LENNIE ECHOLS DO Subjective Comfortable. No new events. Objective Vital Signs Date Time Temp Pulse Resp B/P Pulse Ox O2 Delivery O2 Flow Rate FiO2 01/05/17 12:23 83 01/05/17 10:57 98.4 20 121/69 95 01/05/17 09:26 Nasal Cannula 3.0 Intake and Output 01/04/17 01/04/17 01/05/17 15:00 23:00 07:00 Intake Total 50 ml 100 ml Output Total 400 ml Balance 50 ml -300 ml Exam PHYSICAL EXAMINATION: GENERAL: Elderly-appearing gentleman, appears comfortable at rest, no acute distress. VITAL SIGNS: Well-appearing NECK: Supple. No JVD or lymphadenopathy. CARDIAC: S1, S2, no added sounds or murmurs. CHEST: Diminished air entry bilaterally. ABDOMEN: Soft, nontender. No guarding or rebound. EXTREMITIES: No cyanosis, clubbing, or edema. NEUROLOGIC: Generalized weakness. Results/Medications Result Diagram: 01/05/17 0555 01/05/17 0555 Results 24 hrs Laboratory Tests Test 01/05/17 04:45 01/05/17 05:55 Urine Color YELLOW Urine Clarity CLEAR Urine pH 6.0 Urine Specific [place] 1.012 Urine Ketones NEGATIVE Urine Nitrite NEGATIVE Urine Bilirubin NEGATIVE Urine Urobilinogen NEGATIVE Urine Leukocyte Esterase 2+ H Urine Microscopic RBC 1 Urine Microscopic WBC 3 Urine Hemoglobin NEGATIVE Urine Random Creatinine 47.27 Urine Random Sodium 150 H Urine Glucose NEGATIVE Urine Total Protein 12.0 H White Blood Count 11.7 H Red Blood Count 3.25 L Hemoglobin 8.6 L Hematocrit 28.1 L Mean Corpuscular Volume 86.5 Mean Corpuscular Hemoglobin 26.5 L Mean Corpuscular Hemoglobin Concent 30.6 L Red Cell Distribution Width 15.8 H Platelet Count 311 Mean Platelet Volume 10.0 Neutrophils % 78.9 H Lymphocytes % 13.2 L Monocytes % 4.6 Eosinophils % 2.6 Basophils % 0.3 Nucleated Red Blood Cells % 0.0 Neutrophils # 9.2 H Lymphocytes # 1.6 Monocytes # 0.5 Eosinophils # 0.3 Basophils # 0.0 Nucleated Red Blood Cells # 0.0 Sodium Level 141 Potassium Level 4.6 Chloride Level 106 Carbon Dioxide Level 31 Anion Gap 9 Blood Urea Nitrogen 36 #H Creatinine 0.99 Glucose Level 95 Calcium Level 8.3 L Phosphorus Level 3.6 Magnesium Level 1.9 Medications Current Medications Duloxetine HCl (Cymbalta) 60 mg DAILY PO Last administered on 01/05/17 08:48 ; Admin Dose 60 MG; Start 01/05/17 at 09:00 Polyethylene Glycol (Miralax) 17 gm DAILY PO Last administered on 01/05/17 08 :48; Admin Dose 17 GM; Start 01/05/17 at 09:00 Trazodone HCl (Desyrel) 50 mg QHS PO Last administered on 01/04/17 22:18; Admin Dose 50 MG; Start 01/04/17 at 21:00 Triamcinolone Acetonide (Kenalog 0.1% Cr) 1 applic DAILY TOP ; Start 01/05/17 at 09:00; Status UNV Pantoprazole 40 mg 40 mg DAILY@06 PO Last administered on 01/05/17 05:16; Admin Dose 40 MG; Start 01/05/17 at 06:00 Dextrose/Sodium Chloride 1,000 ml @ 50 mls/hr Q20H IV Last administered on 05:16; Admin Dose 50 MLS/HR; Start 01/04/17 at 10:30 Meropenem/Sodium Chloride (Merrem 500mg/50 ml(Pmx)) 50 ml @ 200 mls/hr Q8 IVPB Last administered on 01/05/17 05:17; Admin Dose 200 MLS/HR; Start 01/04/17 at 11:00 Influenza Virus Vaccine (Fluzone) 0.5 ml ONCE ONCE IM* ; Start 01/06/17 at 11: 00; Stop 01/06/17 at 11:01 Miscellaneous Information (Pending [facility] Order For Wound Care) This patient manuel... PRN PRN XX WOUND CARE; Start 01/04/17 at 13:00 Assessment/Plan Chief Complaint/Hosp Course IMPRESSION: 1. Likely aspiration pneumonia versus healthcare-associated pneumonia. 2. Resolving leukocytosis. 3. History of Crohn disease with chronic constipation. PLAN: 1. The patient will require continued current antibiotics. 2. Aspiration precautions. 3. Stool softeners and/or disimpaction. 4. DVT and GI prophylaxis. 5. Continue vent settings. Problems: BINH GIVENS MD, [facility] Jan 05, 2017 13:14
[2017-01-05] MEDS ORDERED: VANCOMYCIN IV PER PHARMACY XX SCH (15:30)
[2017-01-05] MEDS: ONDANSETRON 4 MG INJ IV PRN (16:28)
[2017-01-05] MEDS ORDERED: COLLAGENASE 30 GM TUBE TOP PRN (16:30)
[2017-01-05] MEDS: VANCOMYCIN 1.25 GM in SOD CHLORIDE 0.9% 250 ML IVPB SCH (17:11)
--- NOTE | 2017-01-05 18:47 | PN ---
DATE: 01/05/2017 INFECTIOUS DISEASE PROGRESS NOTE SUBJECTIVE: Patient is awake, denies pain, looks comfortable, no fevers. LABORATORY: WBC 11.7, platelets 311, neutrophils 78.9, BUN 36, creatinine 0.99. MICROBIOLOGY: Blood cultures negative. ANTIMICROBIALS: The patient is on: 1. Vancomycin. 2. Merrem. ALLERGIES: PENICILLIN. PHYSICAL EXAMINATION: GENERAL: Well-developed, fragile, elderly man who is awake, in no distress. HEENT: Head atraumatic, normocephalic. Sclerae anicteric. Buccal mucosa dry. NECK: Supple. CHEST: Rise symmetrical. Breath sounds with bilateral crackles. HEART: S1, S2. ABDOMEN: Soft. Bowel tones present. EXTREMITIES: Without cyanosis. ASSESSMENT: 1. Sepsis, resolving. 2. Recurrent pneumonia, possibly aspiration type. 3. History of Crohn disease. 4. Dysphagia. 5. History of Clostridium difficile colitis. PLAN: Patient remains stable. Continue present care, antibiotics, anti-aspiration precautions. Fo llow chest x-ray. Dictated By: FLORA LAWS CONCRETE WALL GRINDER OPERATOR for DANIEL DOMINGO MD NI/NTS Conf#: [id number] DID#: [id number] CC: EBER LOVING MD;*EndCC*
[2017-01-05] MEDS: traZODone 50 MG TAB PO SCH (22:47)
[2017-01-06] VITALS (12 sets, daily range): BP systolic 118–162; BP diastolic 66–94; PULSE 75–90; RESP 17–20
[2017-01-06] MEDS: ONDANSETRON 4 MG INJ IV PRN ×2 (02:10→21:46)
[2017-01-06] MEDS: PANTOPRAZOLE (EC) 40 MG TAB PO SCH (05:41)
[2017-01-06] MEDS: DEXTROSE 5%-0.45% NACL 1,000 ML IV SCH (05:42)
[2017-01-06] MEDS: MEROPENEM 500MG/50 ML (PMX) 50 ML IVPB SCH ×3 (05:42→21:46)
[2017-01-06 06:33] LABS: BASOPHILS % 0.4 % (0.0-2.0); EOSINOPHILS # 0.2 10^3/ul (0.0-0.5); EOSINOPHILS % 2.5 % (0.0-7.0); HEMATOCRIT 28.7 % (42.0-52.0); HEMOGLOBIN 8.8 g/dl (14.0-18.0); LYMPHOCYTES # 1.6 10^3/ul (0.8-2.9); LYMPHOCYTES % 16.4 % (15.0-51.0); MEAN CORPUSCULAR HEMOGLOBIN 26.3 pg (29.0-33.0); MEAN CORPUSCULAR HGB CONC 30.7 g/dl (32.0-37.0); MEAN CORPUSCULAR VOLUME 85.9 fl (82.0-101.0); MONOCYTE # 0.6 10^3/ul (0.3-0.9); MONOCYTES % 6.3 % (0.0-11.0); NEUTROPHIL # 7.1 10^3/ul (1.6-7.5); NEUTROPHILS % 73.7 % (39.0-77.0); PLATELET COUNT 292 10^3/UL (140-415); RED BLOOD COUNT 3.34 10^6/ul (4.70-6.10); RED CELL DISTRIBUTION WIDTH 15.5 % (11.5-14.5); WHITE BLOOD COUNT 9.6 10^3/ul (4.8-10.8)
[2017-01-06 07:23] LABS: ALBUMIN 2.7 g/dl (3.3-4.9); ALBUMIN/GLOBULIN RATIO 0.69; BILIRUBIN,INDIRECT 0.2 mg/dl (0-1.1); BILIRUBIN,TOTAL 0.2 mg/dl (0.2-1.3); CALCIUM 8.2 mg/dl (8.4-10.2); CREATININE 0.82 mg/dl (0.61-1.24); MAGNESIUM 1.7 mg/dl (1.7-2.5); PHOSPHORUS 3.2 mg/dl (2.5-4.9); TOTAL PROTEIN 6.6 g/dl (6.1-8.1)
[2017-01-06] MEDS: POLYETHYLENE GLYCOL 17 GM PACKET PO SCH (09:04)
[2017-01-06] MEDS: COLLAGENASE 30 GM TUBE TOP SCH (09:04)
[2017-01-06] MEDS: DULOXETINE 30 MG CAP DR PO SCH (09:04)
--- NOTE | 2017-01-06 09:12 | RADRPT ---
PROCEDURE: XR Abdomen. CLINICAL INDICATION: Abdomen pain. Vomiting. TECHNIQUE: AP supine abdomen x-ray. COMPARISON: None. FINDINGS: The bowel gas pattern is normal. There is no evidence of obstruction. There are no abnormal calcifications overlying the urinary tracts. There are degenerative changes of the spine. There are severe degenerative changes of the right hip. IMPRESSION: 1. No evidence of obstruction. 2. Degenerative changes of the spine and right hip. RPTAT: QQ .Luis Thomas MD, MD Date Time Electronically viewed and signed by .Luis Thomas MD, MD on 01/06/2017 09:12 .R/
[2017-01-06] MEDS: [UNRECOGNIZED DRUG - REMARK] XX SCH ×2 (09:30→17:11)
--- NOTE | 2017-01-06 10:19 | CONS ---
Date/Time of Note Date/Time of Note DATE: 01/06/17 TIME: :18 Consult Date/Type/Reason Admit Date/Time Jan 04, 2017 at 01:59 Initial Consult Date 01/04/17 Type of Consultation: pulm Ordering Provider: LENNIE ECHOLS This is an 81-year-old male with a past medical history of coronary artery disease, history of peripheral neuropathy, history of Crohn's disease, history of hiatal hernia, history of aspiration pneumonia, history of back pain, history of Clostridium difficile, who presented to [facility] approximately 1 month ago for severe sepsis secondary to urinary tract infection and respiratory failure secondary to pneumonia. The patient at that time was treated with IV antibiotics, clinically improved and was subsequently discharged to his board and care. The patient now presents to [facility] after having multiple bouts of nausea, vomiting at his board and care. The patient, upon arrival to the emergency room, had laboratory data drawn, which showed a white count of 22,000, a BUN of 57, creatinine 1.50. The patient had a chest x-ray which showed patchy consolidation in the right lung and patchy consolidation left lung. Findings consistent with multifocal pneumonia as well as a CT scan of the abdomen and pelvis which showed patchy opacities in the lungs. No intraabdominal inflammation was noted, no obstructive uropathy noted. Positive constipation, atherosclerosis and sclerotic lesions in the ramus. The patient in the emergency room was given IV fluids, IV antibiotics and admitted to telemetry for further evaluation. Denies any active hemoptysis, hematemesis or hematochezia. PAST MEDICAL HISTORY: As stated above, history of coronary artery disease, history of Crohn's disease, history of hernia, history of neuropathy, history of Clostridium difficile. REVIEW OF SYSTEMS: A 14-point review of systems was conducted. Pertinent positives in HPI, otherwise negative. PHYSICAL EXAMINATION: HEENT: Head is normocephalic. Pupils are reactive to light. NECK: Supple. HEART: Regular rate. LUNGS: Show diminished breath sounds at the base. Positive rhonchi. ABDOMEN: Soft, nontender to palpation. No rebound or guarding. EXTREMITIES: Negative for clubbing, cyanosis, no edema. DERMATOLOGIC: No rashes. MUSCULOSKELETAL: No joint effusions. The patient has noted wound. NEUROLOGIC: Limited exam, but no obvious focal deficits. Objective Vital Signs Date Time Temp Pulse Resp B/P Pulse Ox O2 Delivery O2 Flow Rate FiO2 01/06/17 08:19 86 01/06/17 07:37 97.9 17 143/94 93 01/06/17 05:04 2.0 27 01/05/17 20:00 Nasal Cannula Intake and Output 01/05/17 01/05/17 01/06/17 15:00 23:00 07:00 Intake Total 770 ml 675 ml Output Total 800 ml 650 ml Balance -30 ml 25 ml Results/Medications Result Diagram: 01/06/1713 01/06/1713 Results 24 hrs Laboratory Tests Test 01/06/17 06:13 White Blood Count 9.6 Red Blood Count 3.34 L Hemoglobin 8.8 L Hematocrit 28.7 L Mean Corpuscular Volume 85.9 Mean Corpuscular Hemoglobin 26.3 L Mean Corpuscular Hemoglobin Concent 30.7 L Red Cell Distribution Width 15.5 H Platelet Count 292 Mean Platelet Volume 10.0 Neutrophils % 73.7 Lymphocytes % 16.4 Monocytes % 6.3 Eosinophils % 2.5 Basophils % 0.4 Nucleated Red Blood Cells % 0.0 Neutrophils # 7.1 Lymphocytes # 1.6 Monocytes # 0.6 Eosinophils # 0.2 Basophils # 0.0 Nucleated Red Blood Cells # 0.0 Sodium Level 141 Potassium Level 4.0 Chloride Level 106 Carbon Dioxide Level 28 Anion Gap 11 Blood Urea Nitrogen 28 H Creatinine 0.82 Glucose Level 101 Calcium Level 8.2 L Phosphorus Level 3.2 Magnesium Level 1.7 Total Bilirubin 0.2 Direct Bilirubin 0.00 Indirect Bilirubin 0.2 Aspartate Amino Transf (AST/SGOT) 27 Alanine Aminotransferase (ALT/SGPT) 36 Alkaline Phosphatase 96 Total Protein 6.6 Albumin 2.7 L Globulin 3.90 H Albumin/Globulin Ratio 0.69 Medications Current Medications Duloxetine HCl (Cymbalta) 60 mg DAILY PO Last administered on 01/06/17 09:04 ; Admin Dose 60 MG; Start 01/05/17 at 09:00 Polyethylene Glycol (Miralax) 17 gm DAILY PO Last administered on 01/06/17 09 :04; Admin Dose 17 GM; Start 01/05/17 at 09:00 Trazodone HCl (Desyrel) 50 mg QHS PO Last administered on 01/05/17 22:47; Admin Dose 50 MG; Start 01/04/17 at 21:00 Triamcinolone Acetonide (Kenalog 0.1% Cr) 1 applic DAILY TOP ; Start 01/05/17 at 09:00; Status UNV Pantoprazole 40 mg 40 mg DAILY@06 PO Last administered on 01/06/17 05:41; Admin Dose 40 MG; Start 01/05/17 at 06:00 Dextrose/Sodium Chloride 1,000 ml @ 50 mls/hr Q20H IV Last administered on 05:42; Admin Dose 50 MLS/HR; Start 01/04/17 at 10:30 Meropenem/Sodium Chloride (Merrem 500mg/50 ml(Pmx)) 50 ml @ 200 mls/hr Q8 IVPB Last administered on 01/06/17 05:42; Admin Dose 200 MLS/HR; Start 01/04/17 at 11:00 Influenza Virus Vaccine 0.5 ml 0.5 ml ONCE ONCE IM* ; Start 01/06/17 at 11:00; Stop 01/06/17 at 11:01 Vancomycin HCl/ Sodium Chloride (Vancocin/NS) 250 ml @ 83.333 mls/ hr Q24H IVPB Last administered on 01/05/17 17:11; Admin Dose 83.333 MLS/HR; Start at 17:00 Ondansetron HCl (Zofran Inj) 4 mg Q6H PRN IV NAUSEA AND/OR VOMITING Last administered on 01/06/17 02:10; Admin Dose 4 MG; Start 01/05/17 at 16:30 Collagenase (Santyl) 1 applic DAILY TOP Last administered on 01/06/17 09:04; Admin Dose 1 APPLIC; Start 01/06/17 at 09:00 Collagenase (Santyl) 1 applic PRN PRN TOP WOUND CARE; Start 01/05/17 at 16:30 Miscellaneous Information (*Order Clarification Bulletin) MEDICATION REQUIRES CLARIFICATION: Q8H XX ; Start 01/06/17 at 09:30 Assessment/Plan Chief Complaint/Hosp Course 1. Severe sepsis secondary to pneumonia. The patient's chest x-ray, CT scan shows multifocal infiltrates. The patient's elevated white count consistent with infection and pneumonia. Plan at this point is to continue current antibiotic therapy, meropenem. We will follow blood cultures, urine cultures. An ID consult was placed with Dr. Arango for evaluation. being seen by pulm Dr. Dalton. 2. Acute respiratory failure secondary to multifocal pneumonia. The patient is clinically stable on nasal cannula, we will continue. We will follow up with pulmonary. Will give nebulizer therapy as needed. fu swallow eval. 3. Nonoliguric acute kidney injury with a previous baseline creatinine of 0.8 mg/dL. Etiology is likely secondary to hemodynamics, sepsis. improved with gentle IV hydration. Would otherwise continue supportive care, renally dose all medications, avoid nephrotoxins. 4. Hyperkalemia secondary to acute kidney injury. We will continue to monitor. Continue gentle IV hydration. improved. 5. Dysphagia. We will place a speech therapy evaluation, as the patient has a possible history of aspiration. 6. Nausea, vomiting. Etiology is unclear, presumed to be secondary to sepsis, pneumonia. We will monitor closely. We will continue the patient on PPI. 7. Acute encephalopathy and dementia. Etiology is toxic metabolic. Continue to monitor. Continue to treat underlying sepsis. 8. Lactic acidosis secondary to sepsis. Continue current treatment plan. 9. Anemia. Monitor hemoglobin and hematocrit levels. 10. Mineral bone disorder. Monitor calcium and phosphorus levels. 11. Decubitus wound. Continue wound care. Place a wound care consult. 12. History of coronary artery disease. Continue medical management. 13. Neuropathy. Continue Lyrica. 14. Depression, continued duloxetine. 15. History of Crohn's disease. Continue to monitor. 16. Gastrointestinal and deep venous thrombosis prophylaxis. Continue proton pump inhibitor and Lovenox. Problems: PAM GREEN MD Jan 06, 2017 10:19
[2017-01-06] MEDS ORDERED: INFLUENZA VIRUS VACCINE 0.5 ML SYG IM* ONE (11:00)
[2017-01-06] MEDS ORDERED: FLUCONAZOLE 200 MG TAB PO ONE (15:30)
[2017-01-06] MEDS: VANCOMYCIN 1.25 GM in SOD CHLORIDE 0.9% 250 ML IVPB SCH (16:04)
--- NOTE | 2017-01-06 17:02 | CONS ---
Date/Time of Note Date/Time of Note DATE: 01/06/17 TIME: 16:52 Consultation Date/Type/Reason Admit Date/Time Jan 04, 2017 at 01:59 Initial Consult Date SUBJECTIVE: 81 y/o male being treated for sespsis, PNA. Patient is awake, looks comfortable. Denies fevers. VS: 162/75 P:82 R:20 SO2:95% T:98.8 LABORATORY: WBC -9.6 H&H: 8.8/28.7 BUN-28 Abdominal X-Ray - NEG 01/06/17 MICROBIOLOGY: Blood cultures negative. 01/05/17 uRINE CULTURE Preliminary Organism 1 JOHAN ALBICANS COLONY COUNT 10,000 - 20,000 CFU/ml ANTIMICROBIALS: The patient is on: 1. Vancomycin. 2. Merrem. 3. Diflucan x1 DOSE ONLY. ALLERGIES: PENICILLIN. PHYSICAL EXAMINATION: GENERAL: Well-developed, fragile, elderly man who is awake, in no distress. HEENT: Head atraumatic, normocephalic. Sclerae anicteric. Buccal mucosa dry. NECK: Supple. CHEST: Rise symmetrical. Breath sounds with bilateral crackles. HEART: S1, S2. ABDOMEN: Soft. Bowel tones present. EXTREMITIES: Without cyanosis. ASSESSMENT: 1. Sepsis, resolving. 2. Recurrent pneumonia, possibly aspiration type. 3. History of Crohn disease. 4. Dysphagia. 5. History of Clostridium difficile colitis. PLAN: Patient remains stable. Continue present care, antibiotics, anti- aspiration precautions. Type of Consultation: ID Referring Provider: LENNIE ECHOLS DO Exam/Review of Systems Vital Signs Vitals Vital Signs Date Time Temp Pulse Resp B/P Pulse Ox O2 Delivery O2 Flow Rate FiO2 01/06/17 16:25 89 01/06/17 15:29 98.8 20 162/75 95 01/06/17 08:00 Nasal Cannula 3.0 01/06/17 05:04 27 Intake and Output 01/05/17 01/05/17 01/06/17 15:00 23:00 07:00 Intake Total 770 ml 675 ml Output Total 800 ml 650 ml Balance -30 ml 25 ml Results Result Diagram: 01/06/17 0613 01/06/17 0613 Results 24 hrs Laboratory Tests Test 01/06/17 06:13 White Blood Count 9.6 Red Blood Count 3.34 L Hemoglobin 8.8 L Hematocrit 28.7 L Mean Corpuscular Volume 85.9 Mean Corpuscular Hemoglobin 26.3 L Mean Corpuscular Hemoglobin Concent 30.7 L Red Cell Distribution Width 15.5 H Platelet Count 292 Mean Platelet Volume 10.0 Neutrophils % 73.7 Lymphocytes % 16.4 Monocytes % 6.3 Eosinophils % 2.5 Basophils % 0.4 Nucleated Red Blood Cells % 0.0 Neutrophils # 7.1 Lymphocytes # 1.6 Monocytes # 0.6 Eosinophils # 0.2 Basophils # 0.0 Nucleated Red Blood Cells # 0.0 Sodium Level 141 Potassium Level 4.0 Chloride Level 106 Carbon Dioxide Level 28 Anion Gap 11 Blood Urea Nitrogen 28 H Creatinine 0.82 Glucose Level 101 Calcium Level 8.2 L Phosphorus Level 3.2 Magnesium Level 1.7 Total Bilirubin 0.2 Direct Bilirubin 0.00 Indirect Bilirubin 0.2 Aspartate Amino Transf (AST/SGOT) 27 Alanine Aminotransferase (ALT/SGPT) 36 Alkaline Phosphatase 96 Total Protein 6.6 Albumin 2.7 L Globulin 3.90 H Albumin/Globulin Ratio 0.69 Medications Medications Current Medications Duloxetine HCl (Cymbalta) 60 mg DAILY PO Last administered on 01/06/17 09:04 ; Admin Dose 60 MG; Start 01/05/17 at 09:00 Polyethylene Glycol (Miralax) 17 gm DAILY PO Last administered on 01/06/17 09 :04; Admin Dose 17 GM; Start 01/05/17 at 09:00 Trazodone HCl (Desyrel) 50 mg QHS PO Last administered on 01/05/17 22:47; Admin Dose 50 MG; Start 01/04/17 at 21:00 Triamcinolone Acetonide (Kenalog 0.1% Cr) 1 applic DAILY TOP ; Start 01/05/17 at 09:00; Status UNV Pantoprazole 40 mg 40 mg DAILY@06 PO Last administered on 01/06/17 05:41; Admin Dose 40 MG; Start 01/05/17 at 06:00 Dextrose/Sodium Chloride 1,000 ml @ 50 mls/hr Q20H IV Last administered on 05:42; Admin Dose 50 MLS/HR; Start 01/04/17 at 10:30 Meropenem/Sodium Chloride 50 ml @ 200 mls/hr Q8 IVPB Last administered on 14:52; Admin Dose 200 MLS/HR; Start 01/04/17 at 11:00 Vancomycin HCl/ Sodium Chloride (Vancocin/NS) 250 ml @ 83.333 mls/ hr Q24H IVPB Last administered on 01/06/17 16:04; Admin Dose 83.333 MLS/HR; Start at 17:00 Ondansetron HCl (Zofran Inj) 4 mg Q6H PRN IV NAUSEA AND/OR VOMITING Last administered on 01/06/17 02:10; Admin Dose 4 MG; Start 01/05/17 at 16:30 Collagenase (Santyl) 1 applic DAILY TOP Last administered on 01/06/17 09:04; Admin Dose 1 APPLIC; Start 01/06/17 at 09:00 Collagenase (Santyl) 1 applic PRN PRN TOP WOUND CARE; Start 01/05/17 at 16:30 Miscellaneous Information (*Order Clarification Bulletin) MEDICATION REQUIRES CLARIFICATION: Q8H XX ; Start 01/06/17 at 09:30 GABRIEL SANTANA Jan 06, 2017 17:02
[2017-01-06] MEDS: traZODone 50 MG TAB PO SCH (21:46)
[2017-01-07] VITALS (11 sets, daily range): BP systolic 105–147; BP diastolic 61–79; PULSE 74–90; RESP 17–22
[2017-01-07] MEDS ORDERED: HALOPERIDOL 5 MG INJ IV PRN
[2017-01-07] MEDS: [UNRECOGNIZED DRUG - REMARK] XX SCH ×3 (01:05→17:30)
[2017-01-07] MEDS: DEXTROSE 5%-0.45% NACL 1,000 ML IV SCH (04:26)
[2017-01-07] MEDS: MEROPENEM 500MG/50 ML (PMX) 50 ML IVPB SCH ×3 (06:23→21:37)
[2017-01-07] MEDS: PANTOPRAZOLE (EC) 40 MG TAB PO SCH (06:24)
--- NOTE | 2017-01-07 09:00 | PN ---
DATE: 01/07/2017 SUBJECTIVE: The patient is stable. No events overnight. No fevers, chills, nausea, vomiting. OBJECTIVE: VITAL SIGNS: Blood pressure is 143/65, respirations 17, pulse 87, temperature 98.7. HEENT: Head is normocephalic. NECK: Supple. HEART: Regular rate. LUNGS: Show diminished breath sounds at the base. ABDOMEN: Soft, nontender to palpation. No rebound or guarding. EXTREMITIES: Negative for clubbing, cyanosis, no edema. DERMATOLOGIC: No rashes. MUSCULOSKELETAL: No joint effusions. NEUROLOGIC: No change in exam. MEDICATIONS: Have been reviewed. LABORATORY DATA: Has been reviewed. No new labs. ASSESSMENT AND PLAN: 1. Severe sepsis secondary to pneumonia. The patient is clinically improving. Continue current an tibiotic regimen. Appreciate infectious disease's evaluation. 2. Acute respiratory failure secondary to pneumonia, clinically improving, currently stable on room air and nasal cannula. 3. Nonoliguric acute kidney injury with previous baseline creatinine 0.8 mg/dL. Etiology is second priya to hemodynamics, sepsis. Renal function is improved with IV hydration. Continue current treatm ent plan, supportive care, renally dose all medicines. 4. Hyperkalemia secondary to acute kidney injury, resolved. 5. Dysphagia. Continue modified diet. 6. Nausea and vomiting, resolved. 7. Acute encephalopathy and dementia, etiology is toxic metabolic. The patient's mental status is improving. 8. Lactic acidosis secondary to sepsis. Continue current treatment plan. 9. Anemia. Monitor hemoglobin and hematocrit levels. 10. Mineral bone disorder. Monitor calcium and phosphorus levels. 11. Decubitus wound. Continue wound care. Continue wound care consult. 12. Coronary artery disease. Continue current medical management. 13. Neuropathy. Continue Lyrica. 14. Depression. Continue Cymbalta. 15. History of Crohn's disease. 16. Gastrointestinal and deep venous thrombosis prophylaxis. Dictated By: LENNIE ECHEVERRIA/SONIA Conf#: [id number] DID#: [id number]
[2017-01-07] MEDS: COLLAGENASE 30 GM TUBE TOP SCH (09:13)
[2017-01-07] MEDS: DULOXETINE 30 MG CAP DR PO SCH (09:13)
[2017-01-07] MEDS: POLYETHYLENE GLYCOL 17 GM PACKET PO SCH (09:13)
--- NOTE | 2017-01-07 13:07 | CONS ---
Date/Time of Note Date/Time of Note DATE: 01/07/17 TIME: 13:05 Consult Date/Type/Reason Admit Date/Time Jan 04, 2017 at 01:59 Initial Consult Date 01/04/17 Type of Consultation: ID Ordering Provider: LENNIE ECHOLS DO Objective Vital Signs Date Time Temp Pulse Resp B/P Pulse Ox O2 Delivery O2 Flow Rate FiO2 01/07/17 12:26 74 01/07/17 11:47 97.8 18 105/63 92 01/07/17 09:15 2.0 01/07/17 09:13 Nasal Cannula 01/07/17 03:01 27 Intake and Output 01/06/17 01/06/17 01/07/17 15:00 23:00 07:00 Intake Total 1550 ml 600 ml Output Total 700 ml Balance 850 ml 600 ml Results/Medications Result Diagram: 01/06/1713 01/06/17612 Medications Current Medications Duloxetine HCl (Cymbalta) 60 mg DAILY PO Last administered on 01/07/17 09:13 ; Admin Dose 60 MG; Start 01/05/17 at 09:00 Polyethylene Glycol (Miralax) 17 gm DAILY PO Last administered on 01/07/17 09 :13; Admin Dose 17 GM; Start 01/05/17 at 09:00 Trazodone HCl (Desyrel) 50 mg QHS PO Last administered on 01/06/17 21:46; Admin Dose 50 MG; Start 01/04/17 at 21:00 Triamcinolone Acetonide (Kenalog 0.1% Cr) 1 applic DAILY TOP ; Start 01/05/17 at 09:00; Status UNV Pantoprazole 40 mg 40 mg DAILY@06 PO Last administered on 01/07/17 06:24; Admin Dose 40 MG; Start 01/05/17 at 06:00 Meropenem/Sodium Chloride 50 ml @ 200 mls/hr Q8 IVPB Last administered on 06:23; Admin Dose 200 MLS/HR; Start 01/04/17 at 11:00 Vancomycin HCl/ Sodium Chloride (Vancocin/NS) 250 ml @ 83.333 mls/ hr Q24H IVPB Last administered on 01/06/17 16:04; Admin Dose 83.333 MLS/HR; Start at 17:00 Ondansetron HCl (Zofran Inj) 4 mg Q6H PRN IV NAUSEA AND/OR VOMITING Last administered on 01/06/17 21:46; Admin Dose 4 MG; Start 01/05/17 at 16:30 Collagenase (Santyl) 1 applic DAILY TOP Last administered on 01/07/17 09:13; Admin Dose 1 APPLIC; Start 01/06/17 at 09:00 Collagenase (Santyl) 1 applic PRN PRN TOP WOUND CARE; Start 01/05/17 at 16:30 Miscellaneous Information (*Order Clarification Bulletin) MEDICATION REQUIRES CLARIFICATION: Q8H XX ; Start 01/06/17 at 09:30 Haloperidol (Haldol) 1 mg Q6 PRN IV AGITATION/ANXIETY Last administered on 01:06; Admin Dose 1 MG; Start 01/07/17 at 00:00 Assessment/Plan Chief Complaint/Hosp Course SUBJECTIVE: Patient is awake, looks comfortable, no fevers. MICROBIOLOGY: Blood cultures negative. ANTIMICROBIALS: 1. Vancomycin. 2. Merrem. ALLERGIES: PENICILLIN. PHYSICAL EXAMINATION: GENERAL: Well-developed, fragile, elderly man who is awake, in no distress. HEENT: Head atraumatic, normocephalic. Sclerae anicteric. Buccal mucosa dry. NECK: Supple. CHEST: Rise symmetrical. Breath sounds with bilateral crackles. HEART: S1, S2. ABDOMEN: Soft. Bowel tones present. EXTREMITIES: Without cyanosis. ASSESSMENT: 1. S/p sepsis 2. Recurrent pneumonia, possibly aspiration type. 3. History of Crohn disease. 4. Dysphagia. 5. History of Clostridium difficile colitis. 6. C alb + urine ==> s/p Diflucan dose PLAN: Patient remains stable. Continue present care, antibiotics, anti- aspiration precautions. Follow pulmonary rec-s. DW staff Problems: FLORA LAWS NP Jan 07, 2017 13:07
[2017-01-07 14:01] LABS: MICROALBUMIN 0.4 mg/dL
[2017-01-07] MEDS: VANCOMYCIN 1.25 GM in SOD CHLORIDE 0.9% 250 ML IVPB SCH (16:06)
--- NOTE | 2017-01-07 17:20 | CONS ---
Date/Time of Note Date/Time of Note DATE: 01/07/17 TIME: 17:15 Consult Date/Type/Reason Admit Date/Time Jan 04, 2017 at 01:59 Initial Consult Date 01/04/17 Type of Consultation: cardiology Ordering Provider: LENNIE ECHOLS DO Subjective cardiology follow up note: S: d/w STAFF and rhythmw as reviewed. pt remains in NSR and BP has improved. pt is less confused and lethargic now he denies any cp or pressure. to me O: General: no acute distress. elderly thin man HEENT: NC/AT.. NECK: NO JVD. no stridor. CV: RRR. systolic murmur; no gallop or rubs. PULM: no wheezing . +mild rhonchi. GI: SOFT, NT, ND, no rebound or guarding Extremity: trace B/L LE edema. no clubbing. neuro: awake and alert Ox2 Psych: calm and pleasant rectal: deferred : normal male ECG 01/04/17 reviewed Sinus tachy. CXR: 1. Diffuse patchy consolidations in the right lung and possible small patchy consolidations in the left lung. Findings are consistent with multifocal pneumonia in the correct clinical context. echo nov 2016 reviewed: 1. Normal left ventricular systolic function. Normal left ventricular cavity size. Mild concentric left ventricular hypertrophy. Ejection fraction is visually estimated at 65 %. Tissue Doppler/Mitral Doppler indices are consistent with impaired relaxation (Stage I diastolic dysfunction). 2. Mitral valve leaflets appear mildly thickened. Mild mitral annular calcification. Mild mitral valve regurgitation. 3. Normal appearance of the aortic valve. No significant aortic stenosis or insufficiency. 4. Normal appearance and function of the tricuspid valve with trace physiologic regurgitation. Normal right ventricular systolic pressure. Estimated peak PA systolic pressure 21 mmHg. Objective Vital Signs Date Time Temp Pulse Resp B/P Pulse Ox O2 Delivery O2 Flow Rate FiO2 01/07/17 16:22 78 01/07/17 15:58 97.8 17 138/61 93 01/07/17 09:15 2.0 01/07/17 09:13 Nasal Cannula 01/07/17 03:01 27 Intake and Output 01/06/17 01/06/17 01/07/17 15:00 23:00 07:00 Intake Total 1550 ml 600 ml Output Total 700 ml Balance 850 ml 600 ml Results/Medications Result Diagram: 01/06/1761201/06/17612 Medications Current Medications Duloxetine HCl (Cymbalta) 60 mg DAILY PO Last administered on 01/07/17 09:13 ; Admin Dose 60 MG; Start 01/05/17 at 09:00 Polyethylene Glycol (Miralax) 17 gm DAILY PO Last administered on 01/07/17 09 :13; Admin Dose 17 GM; Start 01/05/17 at 09:00 Trazodone HCl (Desyrel) 50 mg QHS PO Last administered on 01/06/17 21:46; Admin Dose 50 MG; Start 01/04/17 at 21:00 Triamcinolone Acetonide (Kenalog 0.1% Cr) 1 applic DAILY TOP ; Start 01/05/17 at 09:00; Status UNV Pantoprazole 40 mg 40 mg DAILY@06 PO Last administered on 01/07/17 06:24; Admin Dose 40 MG; Start 01/05/17 at 06:00 Meropenem/Sodium Chloride 50 ml @ 200 mls/hr Q8 IVPB Last administered on 13:08; Admin Dose 200 MLS/HR; Start 01/04/17 at 11:00 Vancomycin HCl/ Sodium Chloride (Vancocin/NS) 250 ml @ 83.333 mls/ hr Q24H IVPB Last administered on 01/07/17 16:06; Admin Dose 83.333 MLS/HR; Start at 17:00 Ondansetron HCl (Zofran Inj) 4 mg Q6H PRN IV NAUSEA AND/OR VOMITING Last administered on 01/06/17 21:46; Admin Dose 4 MG; Start 01/05/17 at 16:30 Collagenase (Santyl) 1 applic DAILY TOP Last administered on 01/07/17 09:13; Admin Dose 1 APPLIC; Start 01/06/17 at 09:00 Collagenase (Santyl) 1 applic PRN PRN TOP WOUND CARE; Start 01/05/17 at 16:30 Miscellaneous Information (*Order Clarification Bulletin) MEDICATION REQUIRES CLARIFICATION: Q8H XX ; Start 01/06/17 at 09:30 Haloperidol (Haldol) 1 mg Q6 PRN IV AGITATION/ANXIETY Last administered on 01:06; Admin Dose 1 MG; Start 01/07/17 at 00:00 Miscellaneous Information (*Rx Drug Level Order Reminder*) VANCO TR LEVEL PRIOR... ONCE ONCE XX ; Start 01/08/17 at 16:00; Stop 01/08/17 at 16:01 Assessment/Plan Chief Complaint/Hosp Course 1. Sepsis 2. multifocal pneumonia: ? aspiration 3. CAD 4. Anemia 5. dysphagia 6. N/V 7/ HX HTN: currently stable. 8. hx PCI 9/ Encephalopathy 10. hx Dementia Recommendations: Antibiotic is being managed as per ID recommendation. Renal function has improved with IV fluid. Will defer to renal/internal medicine team for management. Echocardiogram done last month has showed normal systolic function. For now we will continue with conservative cardiac medical therapy. will check OB stool and if no signs of bleeding will consider resuming ASA Thank you for his referral. I will continue to follow along with you. DEE ALVES MD [facility] Problems: DEE ALVES MD Jan 07, 2017 17:20
[2017-01-07] MEDS ORDERED: SENNA TAB PO PRN (20:00)
[2017-01-07] MEDS: DOCUSATE SODIUM 100 MG CAP PO SCH (21:36)
[2017-01-07] MEDS: traZODone 50 MG TAB PO SCH (21:36)
[2017-01-08] VITALS (13 sets, daily range): BP systolic 125–153; BP diastolic 69–77; PULSE 72–90; RESP 18–20
[2017-01-08] MEDS: [UNRECOGNIZED DRUG - REMARK] XX SCH ×2 (01:30→09:30)
[2017-01-08] MEDS: PANTOPRAZOLE (EC) 40 MG TAB PO SCH (05:38)
[2017-01-08] MEDS: MEROPENEM 500MG/50 ML (PMX) 50 ML IVPB SCH ×3 (05:38→23:30)
[2017-01-08 09:00] LABS: BASOPHIL # 0.1 10^3/ul (0.0-0.1); BASOPHILS % 0.6 % (0.0-2.0); EOSINOPHILS # 0.2 10^3/ul (0.0-0.5); EOSINOPHILS % 2.8 % (0.0-7.0); HEMATOCRIT 29.6 % (42.0-52.0); HEMOGLOBIN 9.5 g/dl (14.0-18.0); LYMPHOCYTES # 1.5 10^3/ul (0.8-2.9); LYMPHOCYTES % 17.6 % (15.0-51.0); MEAN CORPUSCULAR HEMOGLOBIN 27.1 pg (29.0-33.0); MEAN CORPUSCULAR HGB CONC 32.1 g/dl (32.0-37.0); MEAN CORPUSCULAR VOLUME 84.6 fl (82.0-101.0); MEAN PLATELET VOLUME 10.2 fl (7.4-10.4); MONOCYTE # 0.7 10^3/ul (0.3-0.9); MONOCYTES % 7.8 % (0.0-11.0); NEUTROPHILS % 70.6 % (39.0-77.0); PLATELET COUNT 334 10^3/UL (140-415); RED CELL DISTRIBUTION WIDTH 15.3 % (11.5-14.5); WHITE BLOOD COUNT 8.5 10^3/ul (4.8-10.8)
[2017-01-08] MEDS: DULOXETINE 30 MG CAP DR PO SCH (09:10)
[2017-01-08] MEDS: DOCUSATE SODIUM 100 MG CAP PO SCH ×2 (09:11→21:17)
[2017-01-08] MEDS: COLLAGENASE 30 GM TUBE TOP SCH (09:11)
[2017-01-08] MEDS: POLYETHYLENE GLYCOL 17 GM PACKET PO SCH (09:11)
--- NOTE | 2017-01-08 09:18 | PN ---
DATE: 01/08/2017 SUBJECTIVE: The patient is stable. No events overnight. The patient is more alert. OBJECTIVE: VITAL SIGNS: Blood pressure is 146/71, respiration 18, pulse 65, temperature 97.8. HEENT: Head is normocephalic. NECK: Supple. HEART: Regular rate. LUNGS: Show diminished breath sounds at base. ABDOMEN: Soft, nontender to palpation. No rebound or guarding. EXTREMITIES: Negative for clubbing, cyanosis, edema. DERMATOLOGIC: No rashes. MUSCULOSKELETAL: No joint effusions. NEUROLOGIC: No change in exam. MEDICATIONS: The patient's medications have been reviewed. LABORATORY DATA: From 01/08/2017 is currently pending. ASSESSMENT AND PLAN: 1. Severe sepsis secondary to pneumonia. The patient is clinically improving. Continue current an tibiotic regimen. We will discuss with infectious disease to convert to p.o. antibiotics if possibl e. 2. Acute respiratory failure secondary to pneumonia. Continue current treatment plan. Continue prieto pplemental oxygen. 3. Nonoliguric acute kidney injury. Etiology is secondary to hemodynamics. Renal function is impr kwabena. 4. Dysphagia. Continue modified diet. 5. Acute encephalopathy and dementia. Etiology was toxic metabolic. Mental status is improving. 6. Anemia. Monitor hemoglobin and hematocrit levels. 7. Mineral bone monitor calcium and phosphorus levels. 8. Decubitus wound. Continue wound care. 9. Coronary artery disease. Continue current medical management. 10. Neuropathy. Continue current treatment plan 11. Depression. Continue Cymbalta. 12. Gastrointestinal and deep venous thrombosis prophylaxis. 13. Debility. Continue physical therapy. Dictated By: LENNIE ECHEVERRIA/SONIA Conf#: [id number] DID#: [id number]
[2017-01-08 09:22] LABS: CALCIUM 8.7 mg/dl (8.4-10.2); CREATININE 0.8 mg/dl (0.61-1.24); PHOSPHORUS 3.6 mg/dl (2.5-4.9); POTASSIUM 4.2 mmol/L (3.5-5.1)
--- NOTE | 2017-01-08 13:33 | CONS ---
Date/Time of Note Date/Time of Note DATE: 01/08/17 TIME: 13:31 Consult Date/Type/Reason Admit Date/Time Jan 04, 2017 at 01:59 Initial Consult Date 01/04/17 Type of Consultation: id Ordering Provider: LENNIE ECHOLS DO Objective Vital Signs Date Time Temp Pulse Resp B/P Pulse Ox O2 Delivery O2 Flow Rate FiO2 01/08/17 12:25 83 01/08/17 11:53 97.8 18 144/74 98 01/08/17 07:42 Nasal Cannula 3.0 01/07/17 03:01 27 Intake and Output 01/07/17 01/07/17 01/08/17 15:00 23:00 07:00 Intake Total 950 ml 150 ml Output Total 800 ml 1000 ml Balance 150 ml -850 ml Results/Medications Result Diagram: 01/08/17 0812 01/08/17 0812 Results 24 hrs Laboratory Tests Test 01/08/17 08:12 White Blood Count 8.5 Red Blood Count 3.50 L Hemoglobin 9.5 L Hematocrit 29.6 L Mean Corpuscular Volume 84.6 Mean Corpuscular Hemoglobin 27.1 L Mean Corpuscular Hemoglobin Concent 32.1 Red Cell Distribution Width 15.3 H Platelet Count 334 Mean Platelet Volume 10.2 Neutrophils % 70.6 Lymphocytes % 17.6 Monocytes % 7.8 Eosinophils % 2.8 Basophils % 0.6 Nucleated Red Blood Cells % 0.0 Neutrophils # 6.0 Lymphocytes # 1.5 Monocytes # 0.7 Eosinophils # 0.2 Basophils # 0.1 Nucleated Red Blood Cells # 0.0 Sodium Level 143 Potassium Level 4.2 Chloride Level 107 Carbon Dioxide Level 31 Anion Gap 9 Blood Urea Nitrogen 18 Creatinine 0.80 Glucose Level 90 Calcium Level 8.7 Phosphorus Level 3.6 Magnesium Level 2.0 Medications Current Medications Duloxetine HCl (Cymbalta) 60 mg DAILY PO Last administered on 01/08/17 09:10 ; Admin Dose 60 MG; Start 01/05/17 at 09:00 Polyethylene Glycol (Miralax) 17 gm DAILY PO Last administered on 01/08/17 09 :11; Admin Dose 17 GM; Start 01/05/17 at 09:00 Trazodone HCl (Desyrel) 50 mg QHS PO Last administered on 01/07/17 21:36; Admin Dose 50 MG; Start 01/04/17 at 21:00 Pantoprazole 40 mg 40 mg DAILY@06 PO Last administered on 01/08/17 05:38; Admin Dose 40 MG; Start 01/05/17 at 06:00 Meropenem/Sodium Chloride 50 ml @ 200 mls/hr Q8 IVPB Last administered on 05:38; Admin Dose 200 MLS/HR; Start 01/04/17 at 11:00 Vancomycin HCl/ Sodium Chloride (Vancocin/NS) 250 ml @ 83.333 mls/ hr Q24H IVPB Last administered on 01/07/17 16:06; Admin Dose 83.333 MLS/HR; Start at 17:00 Ondansetron HCl (Zofran Inj) 4 mg Q6H PRN IV NAUSEA AND/OR VOMITING Last administered on 01/06/17 21:46; Admin Dose 4 MG; Start 01/05/17 at 16:30 Collagenase (Santyl) 1 applic DAILY TOP Last administered on 01/08/17 09:11; Admin Dose 1 APPLIC; Start 01/06/17 at 09:00 Collagenase (Santyl) 1 applic PRN PRN TOP WOUND CARE; Start 01/05/17 at 16:30 Haloperidol (Haldol) 1 mg Q6 PRN IV AGITATION/ANXIETY Last administered on 01:06; Admin Dose 1 MG; Start 01/07/17 at 00:00 Miscellaneous Information (*Rx Drug Level Order Reminder*) VANCO TR LEVEL PRIOR... ONCE ONCE XX ; Start 01/08/17 at 16:00; Stop 01/08/17 at 16:01 Docusate Sodium (Colace) 100 mg BID PO Last administered on 01/08/17 09:11; Admin Dose 100 MG; Start 01/07/17 at 21:00 Senna (Senokot) 2 tab BID PRN PO CONSTIPATION Last administered on 01/08/17 05:38; Admin Dose 2 TAB; Start 01/07/17 at 20:00 Assessment/Plan Chief Complaint/Hosp Course SUBJECTIVE: No fevers, looks comfortable. MICROBIOLOGY: Blood cultures negative. ANTIMICROBIALS: 1. Vancomycin. 2. Merrem. ALLERGIES: PENICILLIN. PHYSICAL EXAMINATION: GENERAL: Well-developed, fragile, elderly man who is awake, in no distress. HEENT: Head atraumatic, normocephalic. Sclerae anicteric. Buccal mucosa dry. NECK: Supple. CHEST: Rise symmetrical. Breath sounds with bilateral crackles. HEART: S1, S2. ABDOMEN: Soft. Bowel tones present. EXTREMITIES: Without cyanosis. ASSESSMENT: 1. S/p sepsis 2. Recurrent pneumonia, possibly aspiration type. 3. History of Crohn disease. 4. Dysphagia. 5. History of Clostridium difficile colitis. 6. C alb + urine ==> s/p Diflucan dose PLAN: Patient remains stable. Continue present care, IV antibiotics while in house, anticipate dc on oral Levaquin for 5 more days. Follow pulmonary rec-s. [facility] staff Problems: FLORA LAWS NP Jan 08, 2017 13:33
--- NOTE | 2017-01-08 16:00 | CONS ---
Date/Time of Note Date/Time of Note DATE: 01/08/17 TIME: 15:59 Consult Date/Type/Reason Admit Date/Time Jan 04, 2017 at 01:59 Initial Consult Date 01/04/17 Type of Consultation: CARDIOLOGY Ordering Provider: LENNIE ECHOLS DO Subjective cardiology follow up note: S: d/w STAFF and rhythm was reviewed. d/w caregiver. pt with poor appetite. pt remains in NSR and BP has been stable now pt is less confused and lethargic now he denies any cp or pressure. to me O: General: no acute distress. elderly thin man HEENT: NC/AT.. NECK: NO JVD. no stridor. CV: RRR. systolic murmur; no gallop or rubs. PULM: no wheezing . +mild rhonchi. GI: SOFT, NT, ND, no rebound or guarding Extremity: trace B/L LE edema. no clubbing. neuro: awake and alert Ox2 Psych: calm and pleasant rectal: deferred : normal male ECG 01/04/17 reviewed Sinus tachy. CXR: 1. Diffuse patchy consolidations in the right lung and possible small patchy consolidations in the left lung. Findings are consistent with multifocal pneumonia in the correct clinical context. echo nov 2016 reviewed: 1. Normal left ventricular systolic function. Normal left ventricular cavity size. Mild concentric left ventricular hypertrophy. Ejection fraction is visually estimated at 65 %. Tissue Doppler/Mitral Doppler indices are consistent with impaired relaxation (Stage I diastolic dysfunction). 2. Mitral valve leaflets appear mildly thickened. Mild mitral annular calcification. Mild mitral valve regurgitation. 3. Normal appearance of the aortic valve. No significant aortic stenosis or insufficiency. 4. Normal appearance and function of the tricuspid valve with trace physiologic regurgitation. Normal right ventricular systolic pressure. Estimated peak PA systolic pressure 21 mmHg. Objective Vital Signs Date Time Temp Pulse Resp B/P Pulse Ox O2 Delivery O2 Flow Rate FiO2 01/08/17 12:25 83 01/08/17 11:53 97.8 18 144/74 98 01/08/17 07:42 Nasal Cannula 3.0 01/07/17 03:01 27 Intake and Output 01/07/17 01/07/17 01/08/17 15:00 23:00 07:00 Intake Total 950 ml 150 ml Output Total 800 ml 1000 ml Balance 150 ml -850 ml Results/Medications Result Diagram: 01/08/17 0812 01/08/17 0812 Results 24 hrs Laboratory Tests Test 01/08/17 08:12 White Blood Count 8.5 Red Blood Count 3.50 L Hemoglobin 9.5 L Hematocrit 29.6 L Mean Corpuscular Volume 84.6 Mean Corpuscular Hemoglobin 27.1 L Mean Corpuscular Hemoglobin Concent 32.1 Red Cell Distribution Width 15.3 H Platelet Count 334 Mean Platelet Volume 10.2 Neutrophils % 70.6 Lymphocytes % 17.6 Monocytes % 7.8 Eosinophils % 2.8 Basophils % 0.6 Nucleated Red Blood Cells % 0.0 Neutrophils # 6.0 Lymphocytes # 1.5 Monocytes # 0.7 Eosinophils # 0.2 Basophils # 0.1 Nucleated Red Blood Cells # 0.0 Sodium Level 143 Potassium Level 4.2 Chloride Level 107 Carbon Dioxide Level 31 Anion Gap 9 Blood Urea Nitrogen 18 Creatinine 0.80 Glucose Level 90 Calcium Level 8.7 Phosphorus Level 3.6 Magnesium Level 2.0 Medications Current Medications Duloxetine HCl (Cymbalta) 60 mg DAILY PO Last administered on 01/08/17 09:10 ; Admin Dose 60 MG; Start 01/05/17 at 09:00 Polyethylene Glycol (Miralax) 17 gm DAILY PO Last administered on 01/08/17 09 :11; Admin Dose 17 GM; Start 01/05/17 at 09:00 Trazodone HCl (Desyrel) 50 mg QHS PO Last administered on 01/07/17 21:36; Admin Dose 50 MG; Start 01/04/17 at 21:00 Pantoprazole 40 mg 40 mg DAILY@06 PO Last administered on 01/08/17 05:38; Admin Dose 40 MG; Start 01/05/17 at 06:00 Meropenem/Sodium Chloride 50 ml @ 200 mls/hr Q8 IVPB Last administered on 05:38; Admin Dose 200 MLS/HR; Start 01/04/17 at 11:00 Vancomycin HCl/ Sodium Chloride (Vancocin/NS) 250 ml @ 83.333 mls/ hr Q24H IVPB Last administered on 01/07/17 16:06; Admin Dose 83.333 MLS/HR; Start at 17:00 Ondansetron HCl (Zofran Inj) 4 mg Q6H PRN IV NAUSEA AND/OR VOMITING Last administered on 01/06/17 21:46; Admin Dose 4 MG; Start 01/05/17 at 16:30 Collagenase (Santyl) 1 applic DAILY TOP Last administered on 01/08/17 09:11; Admin Dose 1 APPLIC; Start 01/06/17 at 09:00 Collagenase (Santyl) 1 applic PRN PRN TOP WOUND CARE; Start 01/05/17 at 16:30 Haloperidol (Haldol) 1 mg Q6 PRN IV AGITATION/ANXIETY Last administered on 01:06; Admin Dose 1 MG; Start 01/07/17 at 00:00 Miscellaneous Information (*Rx Drug Level Order Reminder*) VANCO TR LEVEL PRIOR... ONCE ONCE XX ; Start 01/08/17 at 16:00; Stop 01/08/17 at 16:01 Docusate Sodium (Colace) 100 mg BID PO Last administered on 01/08/17 09:11; Admin Dose 100 MG; Start 01/07/17 at 21:00 Senna (Senokot) 2 tab BID PRN PO CONSTIPATION Last administered on 01/08/17 05:38; Admin Dose 2 TAB; Start 01/07/17 at 20:00 Assessment/Plan Chief Complaint/Hosp Course 1. Sepsis 2. multifocal pneumonia: ? aspiration 3. CAD 4. Anemia 5. dysphagia 6. N/V 7/ HX HTN: currently stable. 8. hx PCI 9/ Encephalopathy 10. hx Dementia Recommendations: Antibiotic is being managed as per ID recommendation. Renal function has improved with IV fluid. Will defer to renal/internal medicine team for management. Echocardiogram done last month has showed normal systolic function. For now we will continue with conservative cardiac medical therapy. will check OB stool and if no signs of bleeding will consider resuming ASA Thank you for his referral. I will continue to follow along with you. DEE ALVES MD [facility] Problems: DEE ALVES MD Jan 08, 2017 16:00
[2017-01-08] MEDS: VANCOMYCIN 1 GM in NS 250 ML IVPB SCH (21:17)
[2017-01-08] MEDS: traZODone 50 MG TAB PO SCH (21:17)
[2017-01-09] VITALS (11 sets, daily range): BP systolic 134–145; BP diastolic 56–72; PULSE 66–74; RESP 17–18
[2017-01-09] MEDS: PANTOPRAZOLE (EC) 40 MG TAB PO SCH (05:16)
[2017-01-09] MEDS: MEROPENEM 500MG/50 ML (PMX) 50 ML IVPB SCH ×3 (05:16→22:00)
--- NOTE | 2017-01-09 08:32 | CONS ---
Date/Time of Note Date/Time of Note DATE: 01/09/17 TIME: 08:31 Consult Date/Type/Reason Admit Date/Time Jan 04, 2017 at 01:59 Initial Consult Date 01/04/17 Type of Consultation: CARDIOLOGY Ordering Provider: LENNIE ECHOLS DO Subjective cardiology follow up note: S: d/w STAFF and rhythm was reviewed. pt remains in NSR and BP has been stable now he denies any cp or pressure. to me O: General: no acute distress. elderly thin man HEENT: NC/AT.. NECK: NO JVD. no stridor. CV: RRR. systolic murmur; no gallop or rubs. PULM: no wheezing . +mild rhonchi. GI: SOFT, NT, ND, no rebound or guarding Extremity: trace B/L LE edema. no clubbing. neuro: awake and alert Ox2 Psych: calm and pleasant rectal: deferred : normal male ECG 01/04/17 reviewed Sinus tachy. CXR: 1. Diffuse patchy consolidations in the right lung and possible small patchy consolidations in the left lung. Findings are consistent with multifocal pneumonia in the correct clinical context. echo nov 2016 reviewed: 1. Normal left ventricular systolic function. Normal left ventricular cavity size. Mild concentric left ventricular hypertrophy. Ejection fraction is visually estimated at 65 %. Tissue Doppler/Mitral Doppler indices are consistent with impaired relaxation (Stage I diastolic dysfunction). 2. Mitral valve leaflets appear mildly thickened. Mild mitral annular calcification. Mild mitral valve regurgitation. 3. Normal appearance of the aortic valve. No significant aortic stenosis or insufficiency. 4. Normal appearance and function of the tricuspid valve with trace physiologic regurgitation. Normal right ventricular systolic pressure. Estimated peak PA systolic pressure 21 mmHg. Objective Vital Signs Date Time Temp Pulse Resp B/P Pulse Ox O2 Delivery O2 Flow Rate FiO2 01/09/17 08:07 98.0 74 17 145/68 94 01/09/17 01:27 2.0 27 01/08/17 20:00 Nasal Cannula Intake and Output 01/08/17 01/08/17 01/09/17 15:00 23:00 07:00 Intake Total 640 ml 400 ml Balance 640 ml 400 ml Results/Medications Result Diagram: 01/08/17 0812 01/08/17 0812 Results 24 hrs Laboratory Tests Test 01/08/17 16:17 Vancomycin Level Trough 18.2 Medications Current Medications Duloxetine HCl (Cymbalta) 60 mg DAILY PO Last administered on 01/08/17 09:10 ; Admin Dose 60 MG; Start 01/05/17 at 09:00 Polyethylene Glycol (Miralax) 17 gm DAILY PO Last administered on 01/08/17 09 :11; Admin Dose 17 GM; Start 01/05/17 at 09:00 Trazodone HCl (Desyrel) 50 mg QHS PO Last administered on 01/08/17 21:17; Admin Dose 50 MG; Start 01/04/17 at 21:00 Pantoprazole 40 mg 40 mg DAILY@06 PO Last administered on 01/09/17 05:16; Admin Dose 40 MG; Start 01/05/17 at 06:00 Meropenem/Sodium Chloride (Merrem 500mg/50 ml(Pmx)) 50 ml @ 200 mls/hr Q8 IVPB Last administered on 01/09/17 05:16; Admin Dose 200 MLS/HR; Start 01/04/17 at 11:00 Ondansetron HCl (Zofran Inj) 4 mg Q6H PRN IV NAUSEA AND/OR VOMITING Last administered on 01/06/17 21:46; Admin Dose 4 MG; Start 01/05/17 at 16:30 Collagenase (Santyl) 1 applic DAILY TOP Last administered on 01/08/17 09:11; Admin Dose 1 APPLIC; Start 01/06/17 at 09:00 Collagenase (Santyl) 1 applic PRN PRN TOP WOUND CARE; Start 01/05/17 at 16:30 Haloperidol (Haldol) 1 mg Q6 PRN IV AGITATION/ANXIETY Last administered on 01:06; Admin Dose 1 MG; Start 01/07/17 at 00:00 Docusate Sodium (Colace) 100 mg BID PO Last administered on 01/08/17 21:17; Admin Dose 100 MG; Start 01/07/17 at 21:00 Senna 2 tab 2 tab BID PRN PO CONSTIPATION Last administered on 01/08/17 05:38 ; Admin Dose 2 TAB; Start 01/07/17 at 20:00 Vancomycin HCl (Vancocin) 250 ml @ 125 mls/hr Q24H IVPB Last administered on 01/08/17 21:17; Admin Dose 125 MLS/HR; Start 01/08/17 at 21:00 Assessment/Plan Chief Complaint/Hosp Course 1. Sepsis 2. multifocal pneumonia: ? aspiration 3. CAD 4. Anemia 5. dysphagia 6. N/V 7/ HX HTN: currently stable. 8. hx PCI 9/ Encephalopathy 10. hx Dementia Recommendations: Antibiotic is being managed as per ID recommendation. Renal function has improved Echocardiogram done last month has showed normal systolic function. For now we will continue with conservative cardiac medical therapy. will check OB stool and if no signs of bleeding will consider resuming ASA Thank you for his referral. I will continue to follow along with you. DEE ALVES MD [facility] Problems: DEE ALVES MD Jan 09, 2017 08:32
[2017-01-09] MEDS: DOCUSATE SODIUM 100 MG CAP PO SCH ×2 (08:43→20:40)
[2017-01-09] MEDS: COLLAGENASE 30 GM TUBE TOP SCH (08:43)
[2017-01-09] MEDS: POLYETHYLENE GLYCOL 17 GM PACKET PO SCH (08:43)
[2017-01-09] MEDS: DULOXETINE 30 MG CAP DR PO SCH (08:43)
[2017-01-09 08:47] LABS: BASOPHIL # 0.1 10^3/ul (0.0-0.1); BASOPHILS % 0.5 % (0.0-2.0); EOSINOPHILS # 0.4 10^3/ul (0.0-0.5); EOSINOPHILS % 3.6 % (0.0-7.0); HEMATOCRIT 29.7 % (42.0-52.0); HEMOGLOBIN 9.4 g/dl (14.0-18.0); LYMPHOCYTES # 1.7 10^3/ul (0.8-2.9); LYMPHOCYTES % 16.8 % (15.0-51.0); MEAN CORPUSCULAR HEMOGLOBIN 26.7 pg (29.0-33.0); MEAN CORPUSCULAR HGB CONC 31.6 g/dl (32.0-37.0); MEAN CORPUSCULAR VOLUME 84.4 fl (82.0-101.0); MONOCYTE # 0.6 10^3/ul (0.3-0.9); MONOCYTES % 5.7 % (0.0-11.0); NEUTROPHIL # 7.1 10^3/ul (1.6-7.5); NEUTROPHILS % 72.5 % (39.0-77.0); PLATELET COUNT 342 10^3/UL (140-415); RED BLOOD COUNT 3.52 10^6/ul (4.70-6.10); RED CELL DISTRIBUTION WIDTH 15.5 % (11.5-14.5); WHITE BLOOD COUNT 9.8 10^3/ul (4.8-10.8)
[2017-01-09 09:09] LABS: CALCIUM 8.3 mg/dl (8.4-10.2); CREATININE 0.75 mg/dl (0.61-1.24); MAGNESIUM 1.9 mg/dl (1.7-2.5); PHOSPHORUS 3.6 mg/dl (2.5-4.9); POTASSIUM 3.9 mmol/L (3.5-5.1)
--- NOTE | 2017-01-09 10:14 | PN ---
DATE: 01/09/2017 SUBJECTIVE: The patient is clinically stable, pending video swallow evaluation today. No other serg nts noted. OBJECTIVE: VITAL SIGNS: Blood pressure is 145/68, respirations 17, pulse 74, temperature 98.0. HEENT: Head is normocephalic. NECK: Supple. HEART: Regular rate. LUNGS: Show diminished breath sounds at the base. ABDOMEN: Soft, nontender to palpation without rebound or guarding. EXTREMITIES: Negative for clubbing, cyanosis, no edema. DERMATOLOGIC: No rashes. MUSCULOSKELETAL: No joint effusions. NEUROLOGIC: No change in exam. MEDICATIONS: The patient's medications have been reviewed. LABORATORY DATA: Shows white count 9.8, hemoglobin 9.4, hematocrit 29.7, platelet count 342. BMP w ithin normal limits. Calcium 8.3. ASSESSMENT AND PLAN: 1. Severe sepsis secondary to pneumonia. The patient is clinically improving, currently on antibio tics, on Levaquin. The patient has completed 6 days of IV antibiotics. 2. History of respiratory failure secondary to pneumonia, improving. Continue supplemental oxygen. 3. Dysphagia. The patient is pending swallow evaluation, video swallow evaluation today. 4. Acute encephalopathy and dementia. Etiology is toxic metabolic. Mental status improved. 5. Anemia. Monitor hemoglobin and hematocrit levels. 6. Mineral bone disorder. Monitor calcium and phosphorus levels. 7. Decubitus wound. Continue wound care. 8. Coronary artery disease. Continue medical management. 9. Neuropathy. Continue current treatment plan. 10. Depression. Continue Cymbalta. 11. Debility. Continue physical therapy. DISPOSITION: Anticipate discharge planning back to assisted living once patient has completed video swallow evaluation. Dictated By: LENNIE ECHEVERRIA/SONIA Conf#: [id number] DID#: [id number]
--- NOTE | 2017-01-09 12:54 | CONS ---
Date/Time of Note Date/Time of Note DATE: 01/09/17 TIME: 12:53 Consult Date/Type/Reason Admit Date/Time Jan 04, 2017 at 01:59 Initial Consult Date 01/04/17 Type of Consultation: ID Ordering Provider: LENNIE ECHOLS DO Objective Vital Signs Date Time Temp Pulse Resp B/P Pulse Ox O2 Delivery O2 Flow Rate FiO2 01/09/17 12:22 69 01/09/17 08:07 98.0 17 145/68 94 01/09/17 01:27 2.0 27 01/08/17 20:00 Nasal Cannula Intake and Output 01/08/17 01/08/17 01/09/17 15:00 23:00 07:00 Intake Total 640 ml 400 ml Balance 640 ml 400 ml Results/Medications Result Diagram: 01/09/17 0812 01/09/17 0812 Results 24 hrs Laboratory Tests Test 01/08/17 16:17 01/09/17 08:12 Vancomycin Level Trough 18.2 White Blood Count 9.8 Red Blood Count 3.52 L Hemoglobin 9.4 L Hematocrit 29.7 L Mean Corpuscular Volume 84.4 Mean Corpuscular Hemoglobin 26.7 L Mean Corpuscular Hemoglobin Concent 31.6 L Red Cell Distribution Width 15.5 H Platelet Count 342 Mean Platelet Volume 10.0 Neutrophils % 72.5 Lymphocytes % 16.8 Monocytes % 5.7 Eosinophils % 3.6 Basophils % 0.5 Nucleated Red Blood Cells % 0.0 Neutrophils # 7.1 Lymphocytes # 1.7 Monocytes # 0.6 Eosinophils # 0.4 Basophils # 0.1 Nucleated Red Blood Cells # 0.0 Sodium Level 141 Potassium Level 3.9 Chloride Level 106 Carbon Dioxide Level 28 Anion Gap 11 Blood Urea Nitrogen 20 Creatinine 0.75 Glucose Level 94 Calcium Level 8.3 L Phosphorus Level 3.6 Magnesium Level 1.9 Medications Current Medications Duloxetine HCl (Cymbalta) 60 mg DAILY PO Last administered on 01/09/17 08:43 ; Admin Dose 60 MG; Start 01/05/17 at 09:00 Polyethylene Glycol (Miralax) 17 gm DAILY PO Last administered on 01/09/17 08 :43; Admin Dose 17 GM; Start 01/05/17 at 09:00 Trazodone HCl (Desyrel) 50 mg QHS PO Last administered on 01/08/17 21:17; Admin Dose 50 MG; Start 01/04/17 at 21:00 Pantoprazole 40 mg 40 mg DAILY@06 PO Last administered on 01/09/17 05:16; Admin Dose 40 MG; Start 01/05/17 at 06:00 Meropenem/Sodium Chloride (Merrem 500mg/50 ml(Pmx)) 50 ml @ 200 mls/hr Q8 IVPB Last administered on 01/09/17 05:16; Admin Dose 200 MLS/HR; Start 01/04/17 at 11:00 Ondansetron HCl (Zofran Inj) 4 mg Q6H PRN IV NAUSEA AND/OR VOMITING Last administered on 01/06/17 21:46; Admin Dose 4 MG; Start 01/05/17 at 16:30 Collagenase (Santyl) 1 applic DAILY TOP Last administered on 01/09/17 08:43; Admin Dose 1 APPLIC; Start 01/06/17 at 09:00 Collagenase (Santyl) 1 applic PRN PRN TOP WOUND CARE; Start 01/05/17 at 16:30 Haloperidol (Haldol) 1 mg Q6 PRN IV AGITATION/ANXIETY Last administered on 01:06; Admin Dose 1 MG; Start 01/07/17 at 00:00 Docusate Sodium (Colace) 100 mg BID PO Last administered on 01/09/17 08:43; Admin Dose 100 MG; Start 01/07/17 at 21:00 Senna 2 tab 2 tab BID PRN PO CONSTIPATION Last administered on 01/08/17 05:38 ; Admin Dose 2 TAB; Start 01/07/17 at 20:00 Vancomycin HCl (Vancocin) 250 ml @ 125 mls/hr Q24H IVPB Last administered on 01/08/17 21:17; Admin Dose 125 MLS/HR; Start 01/08/17 at 21:00 Assessment/Plan Chief Complaint/Hosp Course SUBJECTIVE: No fevers, looks comfortable. MICROBIOLOGY: Blood cultures negative. ANTIMICROBIALS: 1. Vancomycin. 2. Merrem. ALLERGIES: PENICILLIN. PHYSICAL EXAMINATION: GENERAL: Well-developed, fragile, elderly man who is awake, in no distress. HEENT: Head atraumatic, normocephalic. Sclerae anicteric. Buccal mucosa dry. NECK: Supple. CHEST: Rise symmetrical. Breath sounds with bilateral crackles. HEART: S1, S2. ABDOMEN: Soft. Bowel tones present. EXTREMITIES: Without cyanosis. ASSESSMENT: 1. S/p sepsis 2. Recurrent pneumonia, possibly aspiration type. 3. History of Crohn disease. 4. Dysphagia. 5. History of Clostridium difficile colitis. 6. C alb + urine ==> s/p Diflucan dose PLAN: Patient remains stable. Continue present care, IV antibiotics while in house, anticipate dc on oral Levaquin for 4 more days, pending video swallow eval. [facility] staff Problems: FLORA LAWS NP Jan 09, 2017 12:54
--- NOTE | 2017-01-09 17:27 | RADRPT ---
PROCEDURE: Video-fluoroscopy swallowing study. CLINICAL INDICATION: Dysphagia. TECHNIQUE: Fluoroscopic guided video swallowing study was done in conjunction with the speech ther apist. The study was confined to the oral, pharyngeal, and cervical phases of the swallowing mechani sm. 2.5 minutes of fluoroscopy time was used. 32 series of images were obtained. COMPARISON: No prior study is available for comparison. FINDINGS: There is silent aspiration during swallowing. IMPRESSION: 1. Abnormal study with silent aspiration during swallowing. 2. Please refer to the speech therapist's recommendations for future feedings. RPTAT: QQ .Luis Thomas MD, MD Date Time Electronically viewed and signed by .Luis Thomas MD, on 01/09/2017 17:26 .R/
[2017-01-09] MEDS: VANCOMYCIN 1 GM in NS 250 ML IVPB SCH (20:39)
[2017-01-09] MEDS: traZODone 50 MG TAB PO SCH (20:40)
[2017-01-10] VITALS (8 sets, daily range): BP systolic 118–141; BP diastolic 64–73; PULSE 64–72; RESP 17–18
[2017-01-10] MEDS: MEROPENEM 500MG/50 ML (PMX) 50 ML IVPB SCH ×2 (06:24→14:12)
[2017-01-10] MEDS: PANTOPRAZOLE (EC) 40 MG TAB PO SCH (06:24)
--- NOTE | 2017-01-10 07:51 | CONS ---
Date/Time of Note Date/Time of Note DATE: 01/10/17 TIME: 07:50 Consult Date/Type/Reason Admit Date/Time Jan 04, 2017 at 01:59 Initial Consult Date 01/04/17 Type of Consultation: card Ordering Provider: LENNIE ECHOLS DO Subjective cardiology follow up note: S: d/w STAFF and rhythm was reviewed. pt remains in NSR and BP has been stable now no reports of any cp or chest pressure, or palpitations or PND orthopnea O: General: no acute distress. elderly thin man HEENT: NC/AT.. NECK: NO JVD. no stridor. CV: RRR. systolic murmur; no gallop or rubs. PULM: no wheezing . +mild rhonchi. GI: SOFT, NT, ND, no rebound or guarding Extremity: trace B/L LE edema. no clubbing. neuro: sleeping comfortably Psych: calm and pleasant rectal: deferred : normal male ECG 01/04/17 reviewed Sinus tachy. CXR: 1. Diffuse patchy consolidations in the right lung and possible small patchy consolidations in the left lung. Findings are consistent with multifocal pneumonia in the correct clinical context. echo nov 2016 reviewed: 1. Normal left ventricular systolic function. Normal left ventricular cavity size. Mild concentric left ventricular hypertrophy. Ejection fraction is visually estimated at 65 %. Tissue Doppler/Mitral Doppler indices are consistent with impaired relaxation (Stage I diastolic dysfunction). 2. Mitral valve leaflets appear mildly thickened. Mild mitral annular calcification. Mild mitral valve regurgitation. 3. Normal appearance of the aortic valve. No significant aortic stenosis or insufficiency. 4. Normal appearance and function of the tricuspid valve with trace physiologic regurgitation. Normal right ventricular systolic pressure. Estimated peak PA systolic pressure 21 mmHg. Objective Vital Signs Date Time Temp Pulse Resp B/P Pulse Ox O2 Delivery O2 Flow Rate FiO2 01/10/17 05:09 97.6 70 17 141/73 96 01/10/17 01:50 Nasal Cannula 3.0 01/09/17 01:27 27 Intake and Output 01/09/17 01/09/17 01/10/17 15:00 23:00 07:00 Intake Total 600 ml 530 ml Output Total 400 ml Balance 200 ml 530 ml Results/Medications Result Diagram: 01/09/17 0812 01/09/17 0812 Results 24 hrs Laboratory Tests Test 01/09/17 08:12 White Blood Count 9.8 Red Blood Count 3.52 L Hemoglobin 9.4 L Hematocrit 29.7 L Mean Corpuscular Volume 84.4 Mean Corpuscular Hemoglobin 26.7 L Mean Corpuscular Hemoglobin Concent 31.6 L Red Cell Distribution Width 15.5 H Platelet Count 342 Mean Platelet Volume 10.0 Neutrophils % 72.5 Lymphocytes % 16.8 Monocytes % 5.7 Eosinophils % 3.6 Basophils % 0.5 Nucleated Red Blood Cells % 0.0 Neutrophils # 7.1 Lymphocytes # 1.7 Monocytes # 0.6 Eosinophils # 0.4 Basophils # 0.1 Nucleated Red Blood Cells # 0.0 Sodium Level 141 Potassium Level 3.9 Chloride Level 106 Carbon Dioxide Level 28 Anion Gap 11 Blood Urea Nitrogen 20 Creatinine 0.75 Glucose Level 94 Calcium Level 8.3 L Phosphorus Level 3.6 Magnesium Level 1.9 Medications Current Medications Duloxetine HCl (Cymbalta) 60 mg DAILY PO Last administered on 01/09/17 08:43 ; Admin Dose 60 MG; Start 01/05/17 at 09:00 Polyethylene Glycol (Miralax) 17 gm DAILY PO Last administered on 01/09/17 08 :43; Admin Dose 17 GM; Start 01/05/17 at 09:00 Trazodone HCl (Desyrel) 50 mg QHS PO Last administered on 01/09/17 20:40; Admin Dose 50 MG; Start 01/04/17 at 21:00 Pantoprazole 40 mg 40 mg DAILY@06 PO Last administered on 01/10/17 06:24; Admin Dose 40 MG; Start 01/05/17 at 06:00 Meropenem/Sodium Chloride (Merrem 500mg/50 ml(Pmx)) 50 ml @ 200 mls/hr Q8 IVPB Last administered on 01/10/17 06:24; Admin Dose 200 MLS/HR; Start 01/04/17 at 11:00 Ondansetron HCl (Zofran Inj) 4 mg Q6H PRN IV NAUSEA AND/OR VOMITING Last administered on 01/06/17 21:46; Admin Dose 4 MG; Start 01/05/17 at 16:30 Collagenase (Santyl) 1 applic DAILY TOP Last administered on 01/09/17 08:43; Admin Dose 1 APPLIC; Start 01/06/17 at 09:00 Collagenase (Santyl) 1 applic PRN PRN TOP WOUND CARE; Start 01/05/17 at 16:30 Haloperidol (Haldol) 1 mg Q6 PRN IV AGITATION/ANXIETY Last administered on 01:06; Admin Dose 1 MG; Start 01/07/17 at 00:00 Docusate Sodium (Colace) 100 mg BID PO Last administered on 01/09/17 20:40; Admin Dose 100 MG; Start 01/07/17 at 21:00 Senna 2 tab 2 tab BID PRN PO CONSTIPATION Last administered on 01/08/17 05:38 ; Admin Dose 2 TAB; Start 01/07/17 at 20:00 Vancomycin HCl (Vancocin) 250 ml @ 125 mls/hr Q24H IVPB Last administered on 01/09/17 20:39; Admin Dose 125 MLS/HR; Start 01/08/17 at 21:00 Assessment/Plan Chief Complaint/Hosp Course 1. Sepsis 2. multifocal pneumonia: ? aspiration 3. CAD 4. Anemia 5. dysphagia 6. N/V 7/ HX HTN: currently stable. 8. hx PCI 9/ Encephalopathy 10. hx Dementia Recommendations: Antibiotic is being managed as per ID recommendation. Renal function has improved Echocardiogram done last month has showed normal systolic function. For now we will continue with conservative cardiac medical therapy. I HAVE ordered OB stool and if negative and if no signs of bleeding will consider resuming ASA Thank you for his referral. I will continue to follow along with you. DEE ALVES MD [facility] Problems: DEE ALVES MD Jan 10, 2017 07:51
[2017-01-10] MEDS: DOCUSATE SODIUM 100 MG CAP PO SCH (09:29)
[2017-01-10] MEDS: POLYETHYLENE GLYCOL 17 GM PACKET PO SCH (09:29)
[2017-01-10] MEDS: DULOXETINE 30 MG CAP DR PO SCH (09:29)
[2017-01-10] MEDS: COLLAGENASE 30 GM TUBE TOP SCH (09:38)
--- NOTE | 2017-01-10 14:09 | CONS ---
Date/Time of Note Date/Time of Note DATE: 01/10/17 TIME: 14:08 Consult Date/Type/Reason Admit Date/Time Jan 04, 2017 at 01:59 Initial Consult Date 01/04/17 Type of Consultation: id Ordering Provider: LENNIE ECHOLS DO Objective Vital Signs Date Time Temp Pulse Resp B/P Pulse Ox O2 Delivery O2 Flow Rate FiO2 01/10/17 12:06 72 01/10/17 11:46 97.8 18 118/67 93 01/10/17 01:50 Nasal Cannula 3.0 01/09/17 01:27 27 Intake and Output 01/09/17 01/09/17 01/10/17 15:00 23:00 07:00 Intake Total 600 ml 530 ml Output Total 400 ml Balance 200 ml 530 ml Results/Medications Result Diagram: 01/09/1712 01/09/17 0812 Medications Current Medications Duloxetine HCl (Cymbalta) 60 mg DAILY PO Last administered on 01/10/17 09:29 ; Admin Dose 60 MG; Start 01/05/17 at 09:00 Polyethylene Glycol (Miralax) 17 gm DAILY PO Last administered on 01/10/17 09 :29; Admin Dose 17 GM; Start 01/05/17 at 09:00 Trazodone HCl (Desyrel) 50 mg QHS PO Last administered on 01/09/17 20:40; Admin Dose 50 MG; Start 01/04/17 at 21:00 Pantoprazole 40 mg 40 mg DAILY@06 PO Last administered on 01/10/17 06:24; Admin Dose 40 MG; Start 01/05/17 at 06:00 Meropenem/Sodium Chloride (Merrem 500mg/50 ml(Pmx)) 50 ml @ 200 mls/hr Q8 IVPB Last administered on 01/10/17 06:24; Admin Dose 200 MLS/HR; Start 01/04/17 at 11:00 Ondansetron HCl (Zofran Inj) 4 mg Q6H PRN IV NAUSEA AND/OR VOMITING Last administered on 01/06/17 21:46; Admin Dose 4 MG; Start 01/05/17 at 16:30 Collagenase (Santyl) 1 applic DAILY TOP Last administered on 01/10/17 09:38; Admin Dose 1 APPLIC; Start 01/06/17 at 09:00 Collagenase (Santyl) 1 applic PRN PRN TOP WOUND CARE; Start 01/05/17 at 16:30 Haloperidol (Haldol) 1 mg Q6 PRN IV AGITATION/ANXIETY Last administered on 01:06; Admin Dose 1 MG; Start 01/07/17 at 00:00 Docusate Sodium (Colace) 100 mg BID PO Last administered on 01/10/17 09:29; Admin Dose 100 MG; Start 01/07/17 at 21:00 Senna 2 tab 2 tab BID PRN PO CONSTIPATION Last administered on 01/08/17 05:38 ; Admin Dose 2 TAB; Start 01/07/17 at 20:00 Vancomycin HCl (Vancocin) 250 ml @ 125 mls/hr Q24H IVPB Last administered on 01/09/17 20:39; Admin Dose 125 MLS/HR; Start 01/08/17 at 21:00 Miscellaneous Information (*Rx Drug Level Order Reminder*) VANCOMYCIN TROUGH ON @ 20 ONCE ONCE XX ; Start 01/11/17 at 20:00; Stop 01/11/17 at 20:01 Assessment/Plan Chief Complaint/Hosp Course SUBJECTIVE: No fevers, awake, looks comfortable. MICROBIOLOGY: Blood cultures negative. ANTIMICROBIALS: 1. Vancomycin. 2. Merrem. ALLERGIES: PENICILLIN. PHYSICAL EXAMINATION: GENERAL: Well-developed, fragile, elderly man who is awake, in no distress. HEENT: Head atraumatic, normocephalic. Sclerae anicteric. Buccal mucosa dry. NECK: Supple. CHEST: Rise symmetrical. Breath sounds with bilateral crackles. HEART: S1, S2. ABDOMEN: Soft. Bowel tones present. EXTREMITIES: Without cyanosis. ASSESSMENT: 1. S/p sepsis 2. Recurrent pneumonia, possibly aspiration type. 3. History of Crohn disease. 4. Dysphagia. 5. History of Clostridium difficile colitis. 6. C alb + urine ==> s/p Diflucan dose PLAN: Patient remains stable. Continue present care, anticipate dc on oral Levaquin for 4 more days [facility] staff Problems: FLORA LAWS NP Jan 10, 2017 14:09
--- NOTE | 2017-01-10 14:53 | DS ---
DATE OF ADMISSION: 01/04/2017 DATE OF DISCHARGE: HOSPITAL COURSE: This is an 81-year-old male with a past medical history of coronary artery disease , history of peripheral neuropathy, Crohn's disease, history of hiatal hernia, aspiration pneumonia, C. diff, who presented to [facility] for nausea, vomiting. The patient was noted to have multiple bouts of nausea and vomiting at his assisted living facility, as a result came to [facility]. Upon arrival, the patient was noted to be septic due to pneumonia, wa s admitted to telemetry for evaluation. In terms of the patient's pneumonia, the patient was treate d with IV antibiotics for a 7-day course with clinical improvement as his white count improved. The underlying source of pneumonia was felt to be secondary to aspiration. He was seen by infectious d ischau, Dr. Arango, and will be treated on a course of oral Levaquin for another 4 more days. The p atient was also seen by facialist, Dr. Dalton, for his underlying pneumonia and the patient was clinically improved, currently off nasal cannula. The patient also noted to have acute kidney inju ry on admission due to hemodynamics which improved with IV hydration. The patient had a lactic acid osis which resolved. The patient's other medical problems including coronary artery disease, neurop athy, depression, Crohn's disease were all stable during the hospital course. The patient's encepha lopathy on admission also improved as he was being treated for his underlying infection. The patien t currently at this time will be discharged back to his assisted living facility where he will compl ete a course of antibiotic therapy. At the time of discharge, the patient is stable, in no acute di stress. FINAL DIAGNOSES: 1. Severe sepsis secondary to pneumonia, resolving. 2. Acute respiratory failure, resolving. 3. Acute kidney injury, resolved. 4. Hyperkalemia, resolved. 5. Dysphagia. The patient had a silent aspiration and is on modified diet. 6. Lactic acidosis, resolved. 7. Acute encephalopathy on top of dementia. 8. Anemia. 9. Mineral bone disorder. 10. Decubitus wound. 11. History of coronary artery disease. 12. Neuropathy. 13. Depression. 14. History of Crohn's disease. CONDITION ON DISCHARGE: At the time of discharge, the patient is stable, in no acute distress. FINAL MEDICATIONS: See reconciliation list. Please note I spent over 40 minutes of time preparing the patient's discharge. Dictated By: LENNIE ECHOLS DO NR/SONIA Conf#: [id number] DID#: [id number] CC: EBER LOVING MD;*EndCC*
== END 2017-01-10 15:52 | disposition home health service (06) | DRG 871 ==
LOC: E/R 22:00 → TEL 01-04 01:59
PROVIDERS: ADMIT Internal Medicine; ATTEND Internal Medicine
DX: A41.9 Sepsis, unspecified organism (principal); J96.00 Acute respiratory failure, unspecified whether with hypoxia or hypercapnia; J69.0 Pneumonitis due to inhalation of food and vomit; G93.40 Encephalopathy, unspecified; N17.9 Acute kidney failure, unspecified; L89.152 Pressure ulcer of sacral region, stage 2; J18.9 Pneumonia, unspecified organism; E87.2 Acidosis; L89.223 Pressure ulcer of left hip, stage 3; E87.5 Hyperkalemia; F03.90 Unspecified dementia, unspecified severity, without behavioral disturbance, psychotic disturbance, mood disturbance, and anxiety; R13.10 Dysphagia, unspecified; R65.20 Severe sepsis without septic shock; D64.9 Anemia, unspecified; G62.9 Polyneuropathy, unspecified; F32.9 Major depressive disorder, single episode, unspecified; R11.2 Nausea with vomiting, unspecified
CPT/HCPCS: 71010; 74000; 74176; 74230; 80048; 80053; 80202; 81001; 81003; 82043; 83605; 83690; 83735; 84100; 84155; 84300; 85025; 85610; 85730; 87040; 87086; 90686; 92526; 92610; 92611; 93005; 96374; 96375; 97110; 97163; 97530; J1630; J2185; J2405; J3370; J7030; J7042; J7050

== ENCOUNTER 2017-04-03 11:32 | Inpatient (IN) | END 2017-04-08 16:00 | disposition home health service (06) | DRG 871 ==

== ENCOUNTER 2017-06-17 12:43 | Emergency (ER) | END 2017-06-17 19:02 | disposition home or self-care (01) ==

== ENCOUNTER 2017-08-12 06:55 | Inpatient (IN) | END 2017-08-16 18:00 | disposition home health service (06) | DRG 871 ==

== ENCOUNTER 2017-09-13 23:53 | Inpatient (IN) | END 2017-09-17 12:30 | disposition home or self-care (01) | DRG 871 ==

== ENCOUNTER 2017-09-25 02:19 | Inpatient (IN) | END 2017-10-01 18:47 | disposition home or self-care (01) | DRG 871 ==